=== PATIENT | female | born 1935 | race Caucasian/White ===

== ENCOUNTER 2017-05-25 11:10 | Day surgery (SDC) | payer OTHER ==
[~2017-05-25 11:10] MED LIST: BALANCED SALT IRRIG PLAIN 500 ML BTL IRR ONE; DUOVISC 1 KIT OPTH ONE; EPINEPHRINE/PF 1 MG/ML AMP ONE; MOXIFLOXACIN HCL 10 DROPS/ML **OR USE OPTH ONE; NS 0.9% VIAL 10 ML ONE
--- OUTSIDE RECORDS SUMMARY | 2017-05-25 11:38 | XMS REPORT | Clinical Summary ---
:1935 Author Organization [facility] Address [address] [place] [address] Phone Care Team Providers Name Role Phone Unavailable Primary Care Provider Unavailable Allergies No Known Allergies Current Medications Prescription Sig. Disp. Refills Start Date End Date Status colchicine Take 1.2 mg by Active (COLCRYS) 0.6 mg mouth daily. tablet docusate sodium Take 100 mg by Active (COLACE) 100 MG mouth 2 (two) capsule times daily. metoprolol Take 50 mg by Active (LOPRESSOR) 50 MG mouth 2 (two) tablet times daily. levothyroxine Take 100 mcg Active (SYNTHROID, by mouth Every LEVOTHROID) 100 MCG morning on an tablet empty stomach. famotidine (PEPCID) Take 1 tablet 60 tablet 3 05/09/2016 Active 20 MG tablet (20 mg total) by mouth 2 (two) times daily. traMADol (ULTRAM) Take 2 tablets 30 tablet 0 05/09/2016 Active 50 mg tablet (100 mg total) by mouth every 6 (six) hours as needed for Pain. Max Daily Amount: 400 mg amLODIPine Take 1 tablet 30 tablet 11 08/18/2016 08/18/2017 Active (NORVASC) 5 MG (5 mg total) tablet by mouth daily. folic acid Take 1 tablet 30 tablet 11 08/18/2016 08/18/2017 Active (FOLVITE) 1 MG (1 mg total) tablet by mouth daily. thiamine 100 MG Take 1 tablet 30 tablet 11 08/18/2016 08/18/2017 Active tablet (100 mg total) by mouth daily. aspirin 81 MG EC Take 81 mg by 08/15/2016 Discontinued tablet mouth daily. lidocaine Place 3 30 patch 0 08/18/2016 09/17/2016 (LIDODERM) 5 % patches onto patch the skin daily for 30 days Remove & Discard patch within 12 hours or as directed by . methocarbamol Take 1 tablet 30 tablet 0 08/18/2016 08/28/2016 (ROBAXIN) 500 MG (500 mg total) tablet by mouth 4 (four) times daily as needed for up to 10 days. Active Problems Problem Noted Date Vertebral compression fracture (HCC) 08/07/2016 Spinal cord compression (HCC) 08/07/2016 Gout 08/07/2016 Thrombocytopenia (HCC) 08/07/2016 Physical deconditioning 05/05/2016 Acquired hypothyroidism 05/05/2016 Essential hypertension 05/05/2016 Compression fracture 05/03/2016 Encounters Date Type Specialty Care Team Description 08/11/2016 Procedure Pass 08/11/2016 Surgery Renae, LAMINECTOMY,LUMBAR MD Chase W/INTERNAL FIXATION 08/08/2016 Anesthesia Event Evert Dennis MD 08/07/2016 - Hospital Encounter General Internal Gustavo, Spinal cord 08/19/2016 Medicine shady Ervin ([facility]) (Primary Laureano, Umar, Dx);Vertebral compression Gadicherla, fracture, with Julita delayed healing, MD Chip subsequent encounter;Acquired hypothyroidism;Essen tial hypertension;Physica l deconditioning;Throm bocytopenia (HCC);Gout, unspecified cause, unspecified chronicity, unspecified site;Macrocytosis;Le ukopenia, unspecified type;Cirrhosis of liver without ascites, unspecified hepatic cirrhosis type (HCC);Portal hypertension (HCC) 08/07/2016 Orders Only General Internal Medicine after 05/24/2016 Social History Tobacco Use Types Packs/Day Years Used Date Never Smoker Alcohol Use Drinks/Week oz/Week Comments Yes 5 Glasses of wine 3.0 Sex Assigned at Date Recorded Not on file Last Filed Vital Signs Vital Sign Reading Time Taken Blood Pressure 124/60 08/19/2016 7:19 AM CDT Pulse 62 08/19/2016 7:19 AM CDT Temperature 35.8 C (96.5 F) 08/19/2016 7:19 AM CDT Respiratory Rate 17 08/19/2016 7:19 AM CDT Oxygen Saturation 92% 08/19/2016 7:19 AM CDT Inhaled Oxygen Concentration - - Weight 80.5 kg (177 lb 8 oz) 08/07/2016 2:00 AM CDT Height 165.1 cm (5' 5") 08/07/2016 2:00 AM CDT Body Mass Index 29.54 08/07/2016 2:00 AM CDT Plan of Treatment Not on file Implants Implanted Type Area Clinical Pharmacy Coordinator Device Expiration Model / Serial / Identifier Date Lot Bone Chip Canc 1.7-10mm 30ml [id number] - [id number] Bone N/A: MUSCULOSKELETAL 03/27/2019 [id number] / Implanted: Qty: 1 on 08/11/2016 by Chase Renae MD Spine TRANSPLANT FND [id number] / Lumbar Tiss Live Puty Dbm Optium 10cc Tput10 - [id number] Bone N/A: LIFENET:LIFENET 01/28/2019 [id number] / Implanted: Qty: 1 on 08/11/2016 by Chase Renae MD Spine TRANSPLANT SRV / Lumbar [id number] Tiss Live Puty Dbm Optium 10cc Tput10 - [id number] Bone N/A: LIFENET:LIFENET 04/04/2019 TPUT10 / Implanted: Qty: 1 on 08/11/2016 by Chase Renae MD Spine TRANSPLANT SRV / Lumbar [id number] Matrix Floseal Hemo W/O Ndl 10 [id number] - [id number] Cement/F N/A: VINES: BIOSCI 12/23/2017 [id number] / Implanted: Qty: 1 on 08/11/2016 by Chase Renae MD illeashly/Jose Spine / hesive Lumbar [id number] Cement Ktmx Kyphx Hv-R C01b - [id number] Cement/F N/A: MEDTRONIC:SPINAL C01B / Implanted: Qty: 1 on 08/11/2016 by Chase Renae MD iller/Jose Spine BIOLOGICS / hesive Lumbar [id number] Cement Bone Kyphx Hv-R C01a - [id number] Cement/F N/A: MEDTRONIC:SPINAL C01A / Implanted: Qty: 1 on 08/11/2016 by Chase Renae MD iller/Ad Spine BIOLOGICS / hesive Lumbar [id number] Elia Harper Iii [id number] - [id number] Spine N/A: LUDIN:LUDIN [id number] / Implanted: Qty: 8 on 08/11/2016 by Chase Renae MD Spine SPINE / Lumbar Scr Polyaxial 5.5x45mm [id number] - [id number] Spine N/A: LUDIN:LUDIN [id number] / Implanted: Qty: 8 on 08/11/2016 by Chase Renae MD Spine SPINE / Lumbar [id number] Artem Harper 3 Titanium 480 [id number] - [id number] Spine N/A: LUDIN:LUDIN [id number] / Implanted: Qty: 2 on 08/11/2016 by Chase Renae MD Spine SPINE / Lumbar JBL Procedures Procedure Name Priority Date/Time Associated Diagnosis Comments PROCEDURE W/ STEALTH 08/11/2016 8:30 AM CDT Burst fracture of lumbar vertebra, closed, initial encounter (HCC) Special Needs (O-ARM WITH STEALTH NAVIGATION, VERONICA TABLE, PRONE POSITION) PROCEDURE W/ C-ARM 08/11/2016 8:30 AM CDT Burst fracture of lumbar vertebra, closed, initial encounter (HCC) Special Needs (O-ARM WITH STEALTH NAVIGATION, VERONICA TABLE, PRONE POSITION) LAMINECTOMY,LUMBAR W/INTERNAL 08/11/2016 8:30 AM CDT Burst fracture of lumbar FIXATION vertebra, closed, initial encounter (HCC) Special Needs (O-ARM WITH STEALTH NAVIGATION, VERONICA TABLE, PRONE POSITION) after 05/24/2016 Results RHYTHM STRIP - SCAN (08/20/2016 2:21 PM)Urine culture (08/16/2016 4:28 PM) Only the most recent of2 resultswithin the time period is included. Component Value Ref Range Result >100,000 col/mL Enterococcus species (A) Specimen Performing Laboratory Urine - Urine, Voided [facility] [address] [address] Organism Antibiotic Method Susceptibility Enterococcus species Ampicillin >=32: Resistant Enterococcus species Linezolid 2: Susceptible Enterococcus species Nitrofurantoin 64: Resistant Enterococcus species Tetracycline <=1: Susceptible Enterococcus species Vancomycin <=0.5: Susceptible Urinalysis w/Microscopic (08/16/2016 4:27 PM)Only the most recent of2 resultswithin the time period is included. Component Value Ref Range Color, UA Dark Yellow Clarity, UA Hazy Specific [place], UA 1.026 1.001 - 1.035 pH, UA 6.0 5.0 - 8.0 Protein, UA 30 mg/dL (A) Negative Glucose, UA Negative Negative Ketones, UA 10 mg/dL (A) Negative Bilirubin, UA Negative Negative Blood, UA Negative Negative Nitrite, UA Negative Negative Leukocytes, UA Large (A) Negative Urobilinogen, UA 2.0 (H) 0.2 - 1.0 mg/dL RBC, UA 2 /HPF WBC, UA 36 /HPF Mucus Occasional Squam Epithel, UA 12 /HPF Specimen Source Urine, Voided Specimen Performing Laboratory Urine - Urine, Voided [address] [address] Blood culture (08/16/2016 8:03 AM)Only the most recent of2 resultswithin the time period is included. Component Value Ref Range Result No growth in 5 days Specimen Performing Laboratory Blood - Arm, Right [address] [address] XR spine lumbar 2 or 3 views (08/15/2016 1:54 PM) Specimen Performing Laboratory GE RIS Narrative FINAL REPORT Two views lumbar spine Discussion: There are pedicle screws T11, T12, L2, and L3 associated with bone cement at these levels. Intact dorsal rods are noted with grossly normal thoracolumbar alignment. A severe depression deformity is present at L1 unchanged from the previous study. Signed: Elicia Dasilva MD Report Verified Date/Time:08/15/2016 14:11:16 Reading Location: [address] Consult Reading Room Procedure Note Interface, External Ris In - 08/15/2016 2:13 PM CDT FINAL REPORT Two views lumbar spine Discussion: There are pedicle screws T11, T12, L2, and L3 associated with bone cement at these levels. Intact dorsal rods are noted with grossly normal thoracolumbar alignment. A severe depression deformity is present at L1 unchanged from the previous study. Signed: Elicia Dasilva MD Report Verified Date/Time: 08/15/2016 14:11:16 Reading Location: [facility] [id number] Consult Reading Room with platelet count + automated diff (08/15/2016 3:39 AM)Only the most recent of10 resultswithin the time period is included. Component Value Ref Range WBC 7.0 4.0 - 10.0 K/L RBC 2.59 (L) 4.00 - 5.00 M/L Hemoglobin 9.6 (L) 12.0 - 15.0 GM/DL Hematocrit 27.4 (L) 36.0 - 45.0 % MCV 106.0 (H) 82.0 - 99.0 fL MCH 37.1 (H) 27.0 - 33.0 pg MCHC 35.1 32.0 - 36.0 GM/DL RDW 12.9 10.3 - 14.2 % Platelets 108 (L) 150 - 430 K/CU MM MPV 8.5 6.5 - 10.5 fL nRBC 0 0 - 0 /100 WBC % Neutros 62 % % Lymphs 25 % % Monos 10 % % Eos 4 % % Baso 0 % # Neutros 4.32 1.80 - 8.00 K/L # Lymphs 1.75 1.48 - 4.50 K/L # Monos 0.69 0.00 - 1.30 K/L # Eos 0.26 0.00 - 0.50 K/L # Baso 0.02 0.00 - 0.20 K/L Specimen Performing Laboratory Blood - Arm, [place] [address] Narrative 0.00 CBC with platelet count + automated diff (08/15/2016 3:39 AM)Only the most recent of10 resultswithin the time period is included. Specimen Performing Laboratory Blood Narrative The following orders were created for panel order CBC with platelet count + automated diff. Procedure Abnormality Status --------- ------ CBC with platelet count ...[[id number]]AbnormalFinal result Please view results for these tests on the individual orders. Hepatic function panel (08/15/2016 3:39 AM)Only the most recent of4 resultswithin the time period is included. Component Value Ref Range Protein, Total 5.5 (L) 6.0 - 8.3 gm/dL Albumin 2.5 (L) 3.5 - 5.0 g/dL Total Bilirubin 0.6 0.2 - 1.2 mg/dL Bilirubin, Direct 0.3 0.1 - 0.5 mg/dL Alkaline Phosphatase 141 40 - 150 U/L AST 24 5 - 34 U/L ALT 13 6 - 55 U/L Specimen Performing Laboratory Blood - Arm, [address] [address] Basic Metabolic Panel (08/15/2016 3:39 AM)Only the most recent of10 resultswithin the time period is included. Component Value Ref Range Sodium 133 (L) 136 - 145 meq/L Potassium 3.4 (L) 3.5 - 5.1 meq/L Chloride 105 98 - 107 meq/L CO2 21 (L) 22 - 29 meq/L BUN 9 7 - 21 mg/dL Creatinine 0.49 (L) 0.57 - 1.25 mg/dL Glucose 82 70 - 105 mg/dL Calcium 8.0 (L) 8.4 - 10.2 mg/dL EGFR 122Comment: ESTIMATED GFR IS NOT ACCURATE mL/min/1.73 sq m CREATININE CLEARANCE IN PREDICTING GLOMERULAR FILTRATION RATE. ESTIMATED GFR IS NOT APPLICABLE FOR DIALYSIS PATIENTS. Specimen Performing Laboratory Blood - Arm, [address] [address] Alpha fetoprotein (AFP), tumor marker (08/13/2016 4:16 AM) Component Value Ref Range Alpha-Fetoprotein 4.7 <10.0 ng/mL Specimen Performing Laboratory Blood - Arm, [address] [address] Narrative Effective 01/10/2014: Reference Range Change New: <10.0 Previous: 0.0-8.0 Prepare Leuko-Red PLT (08/12/2016 11:54 PM)Only the most recent of2 resultswithin the time period is included. Component Value Ref Range Unit ABO O Pos UNIT NUMBER [id number] Status TRANSFUSED Blood Bank Product PLATELETS PRODUCT CODE [id number] Specimen Performing Laboratory Blood [place] Vitamin D, 25-Hydroxy (08/12/2016 3:54 AM) Component Value Ref Range Vitamin D 25-Hydroxy 36.0 13.0 - 47.8 ng/mL Specimen Performing Laboratory Blood - Arm, Right [facility] [address] [address] [place] manager of radiology in or 30 minute increments (08/11/2016 12:30 PM) Specimen Performing Laboratory GE RIS Narrative FINAL REPORT Examination: Intraoperative evaluation 390 images were obtained during the procedure by the ordering service. Images are nondiagnostic as no radiologist was present at the time of imaging. Fluoroscopic time was 2.2 seconds. Please see the procedure report for details. Signed: Fausto Alvarez MD Report Verified Date/Time:08/11/2016 22:00:36 Reading Location: [address] Reading Room Procedure Note Interface, External Ris In - 08/11/2016 10:02 PM CDT FINAL REPORT Examination: Intraoperative evaluation 390 images were obtained during the procedure by the ordering service. Images are nondiagnostic as no radiologist was present at the time of imaging. Fluoroscopic time was 2.2 seconds. Please see the procedure report for details. Signed: Fausto Alvarez MD Report Verified Date/Time: 08/11/2016 22:00:36 Reading Location: [address] Reading Room CRITICAL LABS (ABG,NA,K,H&H,GLUCOSE) (08/11/2016 10:18 AM) Specimen Performing Laboratory Blood, Arterial Narrative The following orders were created for panel order [facility] CRITICAL LABS (ABG,NA,K,H&H,GLUCOSE). Procedure Abnormality Status --------- ------ Blood gas, arterial[[id number]]AbnormalFinal result Sodium Na-Stat Lab[[id number]] NormalFinal result Potassium-Stat Lab[[id number]] AbnormalFinal result Glucose-Stat Lab[[id number]] NormalFinal result HGB/HCT (H&H)-Stat Lab[[id number]] AbnormalFinal result Please view results for these tests on the individual orders. Potassium-Stat Lab (08/11/2016 10:18 AM) Component Value Ref Range Potassium 3.1 (L) 3.6 - 5.5 meq/L Specimen Performing Laboratory Blood, [address] [address] Sodium Na-Stat Lab (08/11/2016 10:18 AM) Component Value Ref Range Sodium 136 135 - 148 meq/L Specimen Performing Laboratory Blood, [address] [address] Glucose-Stat Lab (08/11/2016 10:18 AM) Component Value Ref Range Glucose 106 70 - 110 mg/dL Specimen Performing Laboratory Blood, [address] [address] HGB/HCT (H&H)-Stat Lab (08/11/2016 10:18 AM) Component Value Ref Range Hemoglobin 11.6 (L) 12.0 - 15.0 g/dL Hematocrit 34.0 (L) 36.0 - 45.0 % Specimen Performing Laboratory Blood, [address] [address] Blood gas, arterial (08/11/2016 10:18 AM) Component Value Ref Range pH, Arterial 7.41 7.35 - 7.45 pCO2, Arterial 38 35 - 45 mmHg pO2, Arterial 243 (H) 80 - 90 mmHg O2 Sat, Arterial 99.6 (H) 96.0 - 97.0 % HCO3, Arterial 24 21 - 29 mmol/L Base Excess, Arterial -0.7 -2.0 - 3.0 mmol/L Patient Temperature 37.0 C FIO2 100.0 % Specimen Performing Laboratory Blood, [address] [address] Calcium, Ionized (08/11/2016 10:18 AM) Component Value Ref Range Calcium, Ion 1.06 (L) 1.12 - 1.27 mmol/L pH, Blood 7.41 Specimen Performing Laboratory Blood [facility] [address] [address] XR spine lumbar 1 view (08/11/2016 9:27 AM)Only the most recent of2 resultswithin the time period is included. Specimen Performing Laboratory GE RIS Narrative FINAL REPORT Single lateral lumbar spine Discussion: Clamps project along the posterior elements, parallel with the upper margins of the T11 and T12 vertebral bodies. Report was called to Dr. Renae in the operating room who was in agreement. Signed: Elicia Dasilva MD Report Verified Date/Time:08/11/2016 09:53:51 Reading Location: [facility] Radiology Reading Room Procedure Note Interface, External Ris In - 08/11/2016 9:56 AM CDT FINAL REPORT Single lateral lumbar spine Discussion: Clamps project along the posterior elements, parallel with the upper margins of the T11 and T12 vertebral bodies. Report was called to Dr. Renae in the operating room who was in agreement. Signed: Elicia Dasilva MD Report Verified Date/Time: 08/11/2016 09:53:51 Reading Location: [facility] Radiology Reading Room Manual Differential (08/11/2016 4:12 AM)Only the most recent of4 resultswithin the time period is included. Component Value Ref Range Total Counted WBC Morphology Normal Platelet Morphology Normal RBC Morphology Normal Specimen Performing Laboratory Blood - Arm, Right [address] [address] Transfuse Leuko-Red PLT (08/11/2016 3:11 AM)Type and screen, automated (2016 3:59 PM)Only the most recent of2 resultswithin the time period is included. Component Value Ref Range ABO/RH AUTOMATED (BEAKER) O NEGATIVE Ab Scrn NEGATIVE Specimen Performing Laboratory Blood - Arm, Left [address] [address] Prothrombin time/INR (08/10/2016 12:42 PM)Only the most recent of2 resultswithin the time period is included. Component Value Ref Range Protime 14.1 11.7 - 14.7 seconds INR 1.1 <=5.9 Specimen Performing Laboratory Blood - Arm, Left [address] [address] Narrative RECOMMENDED COUMADIN/WARFARIN INR THERAPY RANGES STANDARD DOSE: 2.0 - 3.0 Includes: PROPHYLAXIS for venous thrombosis, systemic embolization; TREATMENT for venous thrombosis and/or pulmonary embolus. HIGH RISK: Target INR is 2.5-3.5 for patients with mechanical heart valves. Platelet count (08/10/2016 12:42 PM) Component Value Ref Range Platelets 62 (L) 150 - 430 K/CU MM Specimen Performing Laboratory Blood - Arm, Left [address] [address] Narrative Performed on a blue top tube Haptoglobin (08/10/2016 12:42 PM) Component Value Ref Range Haptoglobin 119 14 - 258 mg/dL Specimen Performing Laboratory Blood - Arm, Left [address] [address] Narrative Effective 01/10/2014: Reference Range Change New: 14-258 Previous: 36-195 Peripheral Blood Smear - Hold only (08/10/2016 9:49 AM) Component Value Ref Range Peripheral Smear Save saved Specimen Performing Laboratory Blood - Antecubital, Right [address] [address] CBC (Hemogram only) (08/10/2016 9:49 AM)Only the most recent of2 resultswithin the time period is included. Component Value Ref Range WBC 3.3 (L) 4.0 - 10.0 K/L RBC 3.63 (L) 4.00 - 5.00 M/L Hemoglobin 13.0 12.0 - 15.0 GM/DL Hematocrit 38.9 36.0 - 45.0 % MCV 107.0 (H) 82.0 - 99.0 fL MCH 35.8 (H) 27.0 - 33.0 pg MCHC 33.5 32.0 - 36.0 GM/DL RDW 14.7 (H) 10.3 - 14.2 % Platelets 85 (L) 150 - 430 K/CU MM MPV 7.8 6.5 - 10.5 fL nRBC 0 0 - 0 /100 WBC Specimen Performing Laboratory Blood - Antecubital, [address] [address] Narrative 0.00 Hepatitis panel, acute (08/09/2016 5:53 PM) Component Value Ref Range Hep A IgM Nonreactive Nonreactive Hep B C IgM Nonreactive Nonreactive Hepatitis C Ab Nonreactive Nonreactive hepatitis B Surface Ag Nonreactive Nonreactive Specimen Performing [facility] [address] [address] Fibrinogen (08/09/2016 5:53 PM) Component Value Ref Range Fibrinogen 319 225 - 434 mg/dl Specimen Performing Laboratory [facility] [address] [address] Immunofixation electrophoresis (MARCO) (08/09/2016 4:05 AM) Component Value Ref Range IgG 1073 751 - 1560 mg/dL IgA 604 (H) 82 - 453 mg/dL IgM 152 46 - 304 mg/dL Serum MARCO Identification IgA-kappa, monoclonal; IgG-lambda monoclonal (Note: monoclonal proteins are small in concentration; majority of immunoglobulin present is polyclonal in nature.) Pathologist: Joseline Alvarado MD (electronic signature) Specimen Performing Laboratory Blood - Arm, [address] [address] Protein electrophoresis, serum (08/09/2016 4:05 AM) Component Value Ref Range Albumin Fraction 2.7 (L) 3.5 - 5.5 g/dL Alpha 1 Fraction 0.3 0.2 - 0.4 g/dL Alpha 2 Fraction 0.6 0.5 - 0.9 g/dL Beta Fraction 0.8 0.6 - 1.1 g/dL Gamma Globulin Fraction 1.3 0.7 - 1.7 g/dL Interpretation Decreased albumin and slight beta-gamma bridging, consistent with hepatic dysfunction. Small restrictions present in gamma region; serum MARCO ordered for further characterization. Pathologist: Joseline Alvarado MD (electronic signature) Protein, Total 5.6 (L) 6.0 - 8.3 gm/dL Specimen Performing Laboratory Blood - Arm, [address] [address] US abdomen complete (08/08/2016 5:36 PM) Specimen Performing Laboratory GE RIS Narrative FINAL REPORT Abdominal Ultrasound Clinical Diagnosis: Cirrhosis splenomegaly Comparison: No comparison Technique: Multiple transaxial and longitudinal images were obtained through the abdomen with real time ultrasonography.Five MHz transducer was utilized.82 images were submitted for interpretation. Report: Liver: The liver measures 14.8 cm in the right midaxillary line. There are no focal masses.The echogenicity is within normal limits. Spleen: The spleen measures 14.3 cm. in the left mid axillary line. Gallbladder: The gallbladder is surgically absent Biliary tree: There is no evidence of intra or extra hepatic biliary ductal dilatation. The common bile duct measures five mm. Portal vein: The portal vein measures 10 mm. Pancreas:The pancreatic tail is not well seen secondary to overlying bowel gas. Ascites: Negative Pleural Effusion: Negative Right kidney: The right kidney measures 8.5 cm. in length without evidence of hydronephrosis. Left kidney: Theleft kidney measures 9.0 cm. in length without evidence of hydronephrosis. IVC/Aorta: Partially seen segments demonstrate no abnormality. The maximum transaxial dimension of the aorta was 1.7 cm proximally Impression: Status post cholecystectomy. Splenomegaly. Mild nodularity visualized at the liver cortical margin consistent with the patient's clinical diagnosis of cirrhosis Small kidneys bilaterally. Signed: Mila Gunter MD Report Verified Date/Time:08/08/2016 17:49:34 Reading Location: [address] Ultrasound Reading Room Procedure Note Interface, External Ris In - 08/08/2016 5:51 PM CDT FINAL REPORT Abdominal Ultrasound Clinical Diagnosis: Cirrhosis splenomegaly Comparison: No comparison Technique: Multiple transaxial and longitudinal images were obtained through the abdomen with real time ultrasonography. Five MHz transducer was utilized. 82 images were submitted for interpretation. Report: Liver: The liver measures 14.8 cm in the right midaxillary line. There are no focal masses. The echogenicity is within normal limits. Spleen: The spleen measures 14.3 cm. in the left mid axillary line. Gallbladder: The gallbladder is surgically absent Biliary tree: There is no evidence of intra or extra hepatic biliary ductal dilatation. The common bile duct measures five mm. Portal vein: The portal vein measures 10 mm. Pancreas: The pancreatic tail is not well seen secondary to overlying bowel gas. Ascites: Negative Pleural Effusion: Negative Right kidney: The right kidney measures 8.5 cm. in length without evidence of hydronephrosis. Left kidney: The left kidney measures 9.0 cm. in length without evidence of hydronephrosis. IVC/Aorta: Partially seen segments demonstrate no abnormality. The maximum transaxial dimension of the aorta was 1.7 cm proximally Impression: Status post cholecystectomy. Splenomegaly. Mild nodularity visualized at the liver cortical margin consistent with the patient's clinical diagnosis of cirrhosis Small kidneys bilaterally. Signed: Mila Gunter MD Report Verified Date/Time: 08/08/2016 17:49:34 Reading Location: [address] Ultrasound Reading Room chest 1 view portable / bedside (08/08/2016 4:44 PM) Specimen Performing Laboratory GE RIS Narrative FINAL REPORT AP CHEST History provided: Preoperative assessment Comparison studies: None Degree of inspiration is less than optimal. Heart appears enlarged. Lungs grossly clear and vascularity normal. Deformed right clavicle secondary to old healed fracture. Left shoulder prosthesis. IMPRESSION: Cardiomegaly. No acute findings. Signed: Felisa Soto MD Report Verified Date/Time:08/08/2016 16:50:49 Reading Location: [facility] Radiology Reading Room Procedure Note Interface, External Ris In - 08/08/2016 4:59 PM CDT FINAL REPORT AP CHEST History provided: Preoperative assessment Comparison studies: None Degree of inspiration is less than optimal. Heart appears enlarged. Lungs grossly clear and vascularity normal. Deformed right clavicle secondary to old healed fracture. Left shoulder prosthesis. IMPRESSION: Cardiomegaly. No acute findings. Signed: Felisa Soto MD Report Verified Date/Time: 08/08/2016 16:50:49 Reading Location: [facility] Radiology Reading Room Reticulocyte count (08/08/2016 2:32 PM) Component Value Ref Range % Retic 3.8 (H) 0.4 - 2.9 % Specimen Performing Laboratory Blood [facility] [address] [place] [address] Lactate dehydrogenase (LDH) (08/08/2016 2:32 PM) Component Value Ref Range LDH 146 125 - 220 U/L Specimen Performing Laboratory Blood [address] [address] Vitamin B12 and Folate (08/08/2016 6:14 AM) Component Value Ref Range Vitamin B12 486 213 - 816 pg/mL Folate 17.2 >=7.0 ng/mL Specimen Performing Laboratory Blood - Arm, [address] [address] Narrative Effective 01/10/2014: Folate Reference Range Change New: >=7.0Previous: >=5.4 Comprehensive metabolic panel (08/08/2016 6:14 AM) Component Value Ref Range Protein, Total 6.9Comment: Specimen slightly hemolyzed 6.0 - 8.3 gm/dL Albumin 3.3 (L)Comment: Specimen slightly hemolyzed 3.5 - 5.0 g/dL Alkaline Phosphatase 150 40 - 150 U/L Total Bilirubin 1.0Comment: Specimen slightly hemolyzed 0.2 - 1.2 mg/dL Sodium 136 136 - 145 meq/L Potassium 3.8Comment: Specimen slightly hemolyzed 3.5 - 5.1 meq/L Chloride 101 98 - 107 meq/L CO2 28 22 - 29 meq/L BUN 8 7 - 21 mg/dL Creatinine 0.57Comment: Specimen slightly hemolyzed 0.57 - 1.25 mg/dL Glucose 87 70 - 105 mg/dL Calcium 9.2 8.4 - 10.2 mg/dL AST 43 (H)Comment: Specimen slightly hemolyzed 5 - 34 U/L ALT 17Comment: Specimen slightly hemolyzed 6 - 55 U/L EGFR 102Comment: ESTIMATED GFR IS NOT ACCURATE mL/min/1.73 sq m CREATININE CLEARANCE IN PREDICTING GLOMERULAR FILTRATION RATE. ESTIMATED GFR IS NOT APPLICABLE FOR DIALYSIS PATIENTS. Specimen Performing Laboratory Blood - Arm, [address] [address] MR spine lumbar without IV contrast (08/07/2016 4:10 PM) Specimen Performing Laboratory GE RIS Narrative FINAL REPORT MRI of the lumbar spine Comparison:Lumbar CT May 03 Reason for exam: L1 compression fracture Discussion: Sagittal and axial multisequence MR imaging of the lumbar spine was provided Chronic appearing compression deformity at T12 is similar in appearance to that of the previous CT. A compression deformity at L1 has become worse, now severe in degree with minimal retropulsion. There is moderate central canal stenosis at the upper L1 endplate level. Loss of the L1 vertebral body height is approximately 80% ventrally and 40% dorsally. There is bone marrow edema at the L1 level. MR imaging reveals a new compression deformity involving the upper endplate at L2 with bone marrow edema. No retropulsion. A dorsal disc bulge at this level is noted contributing to mild central canal stenosis. Chronic disc changes and facet arthrosis are seen at multiple levels throughout the lumbar region. The distal cord and conus are otherwise unremarkable with the conus tip at the L1 level. I do not see convincing foraminal nerve or compromise. There is substantial paraspinal muscular atrophy. Impressions: 1. T12 compression deformity is chronic. 2. L1 compression deformity has become worse with persistent marrow edema. Moderate central canal stenosis at this level. 3. New upper L2 endplate compression deformity minimal in degree. 4. Compression deformities are presumably osteoporotic pathologic in nature, but traumatic compression deformities could have this appearance. Signed: Elicia Dasilva MD Report Verified Date/Time:08/07/2016 16:54:05 Reading Location: [address] Neuro Reading Room Procedure Note Interface, External Ris In - 08/07/2016 4:56 PM CDT FINAL REPORT MRI of the lumbar spine Comparison: Lumbar CT May 03 Reason for exam: L1 compression fracture Discussion: Sagittal and axial multisequence MR imaging of the lumbar spine was provided Chronic appearing compression deformity at T12 is similar in appearance to that of the previous CT. A compression deformity at L1 has become worse, now severe in degree with minimal retropulsion. There is moderate central canal stenosis at the upper L1 endplate level. Loss of the L1 vertebral body height is approximately 80% ventrally and 40% dorsally. There is bone marrow edema at the L1 level. MR imaging reveals a new compression deformity involving the upper endplate at L2 with bone marrow edema. No retropulsion. A dorsal disc bulge at this level is noted contributing to mild central canal stenosis. Chronic disc changes and facet arthrosis are seen at multiple levels throughout the lumbar region. The distal cord and conus are otherwise unremarkable with the conus tip at the L1 level. I do not see convincing foraminal nerve or compromise. There is substantial paraspinal muscular atrophy. Impressions: 1. T12 compression deformity is chronic. 2. L1 compression deformity has become worse with persistent marrow edema. Moderate central canal stenosis at this level. 3. New upper L2 endplate compression deformity minimal in degree. 4. Compression deformities are presumably osteoporotic pathologic in nature, but traumatic compression deformities could have this appearance. Signed: Elicai Dasilva MD Report Verified Date/Time: 08/07/2016 16:54:05 Reading Location: [address] Neuro Reading Room aPTT (08/07/2016 7:32 AM) Component Value Ref Range PTT 33.1 22.5 - 36.0 seconds Specimen Performing Laboratory Blood [address] [address] Peripheral Blood Smear - Path Review (08/07/2016 7:02 AM) Component Value Ref Range Pathologist Review Comment: Thrombocytopenia. Occasional large forms. No clumping or satellitosis. Pathologist: Ele Carmen M.D. (electronic signature) Specimen Performing Laboratory [address] [address] TSH/Free T4 If Indicated (08/07/2016 7:01 AM) Component Value Ref Range TSH 0.38 0.35 - 4.94 uIU/mL Specimen Performing Laboratory [address] [address] ECG 12 lead (08/07/2016 6:40 AM) Specimen Performing Laboratory GE MUSE Narrative Ventricular Rate 71 BPM Atrial Rate 71 BPM P-R Interval 172 ms QRS Duration 100 ms Q-T Interval 408 ms QTC Calculation(Bazett) 443 ms P [place] 50 degrees R [place] 9 degrees T [place] 32 degrees Normal sinus rhythm Normal ECG No previous ECGs available Confirmed by KELSI, MDIONISIO Rodriguez ([id number]) on 08/07/2016 10:25:39 AM Procedure Note Interface, External Ris In - 08/07/2016 10:25 AM CDT Ventricular Rate 71 BPM Atrial Rate 71 BPM P-R Interval 172 ms QRS Duration 100 ms Q-T Interval 408 ms QTC Calculation(Bazett) 443 ms P [place] 50 degrees R [place] 9 degrees T [place] 32 degrees Normal sinus rhythm Normal ECG No previous ECGs available Confirmed by Ama DOLAN BASANT ([id number]) on 08/07/2016 10:25:39 AM after 05/24/2016
--- OUTSIDE RECORDS SUMMARY | 2017-05-25 11:40 | XMS REPORT ---
:1935 [facility] Address [address] [place] [address] Dr. Constantino [address] [place] [id number] Care Team Providers Name Role Phone SUKHDEEP CRAWFORD Unavailable Unavailable Ang SANDS Unavailable Unavailable Problems This patient has no known problems. Allergies, Adverse Reactions, Alerts This patient has no known allergies or adverse reactions. Medications This patient has no known medications. Results Test Description Test Time Test Comments Text Results Atomic Results Result Comments BLOOD CULTURE 2016-08-21 11:00:00 Test Item Value Reference Range Comments CULTURE (BEAKER) (test vfvi=4081) No growth in 5 days BLOOD [id number] 11:00:00 Test Item Value Reference Range Comments CULTURE (BEAKER) (test auvh=6829) No growth in 5 days URINE [id number] 09:13:00 Test Item Value Reference Range Comments CULTURE (BEAKER) (test ENTEROCOCCUS SPECIES >100,000 col/mL uodv=4811) Enterococcus species Ampicillin (test code=26) Ciprofloxacin (test code=7) Clindamycin (test code=10) Daptomycin (test code=59) Erythromycin (test code=4) Gentamicin (test code=18) Gentamicin High Level Synergy (test oqqb=585) Levofloxacin (test code=22) Linezolid (test code=40) Moxifloxacin (test code=36) Nitrofurantoin (test code=23) Oxacillin (test code=14) Rifampin (test code=43) Streptomycin High Level Synergy (test wbdw=344) Tetracycline (test code=2) Tigecycline (test vswe=032) Trimethoprim + Sulfamethoxazole (test code=47) Vancomycin (test code=13) URINALYSIS W/ [id number] 17:26:00 Test Item Value Reference Range Comments COLOR (BEAKER) (test dplo=291) Dark Yellow CLARITY (BEAKER) (test ftbv=953) Hazy SPECIFIC GRAVITY UA (BEAKER) (test xzny=884) 1.026 1.001-1.035 PH UA (BEAKER) (test usyg=349) 6.0 5.0-8.0 PROTEIN UA (BEAKER) (test utao=303) 30 mg/dL Negative GLUCOSE UA (BEAKER) (test gvdb=101) Negative Negative KETONES UA (BEAKER) (test occw=891) 10 mg/dL Negative BILIRUBIN UA (BEAKER) (test czns=741) Negative Negative BLOOD UA (BEAKER) (test wmux=888) Negative Negative NITRITE UA (BEAKER) (test bcob=093) Negative Negative LEUKOCYTE ESTERASE UA (BEAKER) (test glti=880) Large Negative UROBILINOGEN UA (BEAKER) (test tifz=137) 2.0 mg/dL 0.2-1.0 RBC UA (BEAKER) (test cwec=271) 2 /HPF WBC UA (BEAKER) (test ykim=599) 36 /HPF MUCUS (BEAKER) (test vvtr=5988) Occasional SQUAMOUS EPITHELIAL (BEAKER) (test tyxp=425) 12 /HPF SOURCE(BEAKER) (test qtma=1813) Urine, Voided HEPATIC FUNCTION [id number] 05:45:00 Test Item Value Reference Range Comments TOTAL PROTEIN (BEAKER) (test lmtn=337) 5.5 gm/dL 6.0-8.3 ALBUMIN (BEAKER) (test hotm=4572) 2.5 g/dL 3.5-5.0 BILIRUBIN TOTAL (BEAKER) (test tamd=286) 0.6 mg/dL 0.2-1.2 BILIRUBIN DIRECT (BEAKER) (test mbde=138) 0.3 mg/dL 0.1-0.5 ALKALINE PHOSPHATASE (BEAKER) (test umzt=499) 141 U/L 40-150 AST (SGOT) (BEAKER) (test orbr=197) 24 U/L 5-34 ALT (SGPT) (BEAKER) (test okdm=460) 13 U/L 6-55 BASIC METABOLIC [id number] 05:45:00 Test Item Value Reference Range Comments SODIUM (BEAKER) (test 133 meq/L 136-145 zmtx=873) POTASSIUM (BEAKER) (test 3.4 meq/L 3.5-5.1 kkqw=442) CHLORIDE (BEAKER) (test 105 meq/L 98-107 oqyg=522) CO2 (BEAKER) (test 21 meq/L 22-29 gjlv=030) BLOOD UREA NITROGEN 9 mg/dL 7-21 (BEAKER) (test mfwn=341) CREATININE (BEAKER) (test 0.49 mg/dL 0.57-1.25 qeyz=579) GLUCOSE RANDOM (BEAKER) 82 mg/dL 70-105 (test hans=419) CALCIUM (BEAKER) (test 8.0 mg/dL 8.4-10.2 jaic=830) EGFR (BEAKER) (test 122 mL/min/1.73 sq m ESTIMATED GFR IS NOT nfna=5466) ACCURATE CREATININE CLEARANCE IN PREDICTING GLOMERULAR FILTRATION RATE. ESTIMATED GFR IS NOT APPLICABLE FOR DIALYSIS PATIENTS. CBC W/PLT COUNT & AUTO [id number] 05:22:00 Test Item Value Reference Range Comments WHITE BLOOD CELL COUNT (BEAKER) (test ufmn=851) 7.0 K/ L 4.0-10.0 RED BLOOD CELL COUNT (BEAKER) (test cvfb=111) 2.59 M/ L 4.00-5.00 HEMOGLOBIN (BEAKER) (test cngr=761) 9.6 GM/DL 12.0-15.0 HEMATOCRIT (BEAKER) (test ekxh=040) 27.4 % 36.0-45.0 MEAN CORPUSCULAR VOLUME (BEAKER) (test nmih=953) 106.0 fL 82.0-99.0 MEAN CORPUSCULAR HEMOGLOBIN (BEAKER) (test 37.1 pg 27.0-33.0 jswz=763) MEAN CORPUSCULAR HEMOGLOBIN CONC (BEAKER) (test 35.1 GM/DL 32.0-36.0 fpmw=068) RED CELL DISTRIBUTION WIDTH (BEAKER) (test 12.9 % 10.3-14.2 ntyw=775) PLATELET COUNT (BEAKER) (test sxbp=517) 108 K/CU MM 150-430 MEAN PLATELET VOLUME (BEAKER) (test lfoq=473) 8.5 fL 6.5-10.5 NUCLEATED RED BLOOD CELLS (BEAKER) (test 0 /100 WBC 0-0 xbhh=828) NEUTROPHILS RELATIVE PERCENT (BEAKER) (test 62 % ktjg=749) LYMPHOCYTES RELATIVE PERCENT (BEAKER) (test 25 % urdl=822) MONOCYTES RELATIVE PERCENT (BEAKER) (test 10 % aqsk=324) EOSINOPHILS RELATIVE PERCENT (BEAKER) (test 4 % gohy=105) BASOPHILS RELATIVE PERCENT (BEAKER) (test 0 % ikjn=755) NEUTROPHILS ABSOLUTE COUNT (BEAKER) (test 4.32 K/ L 1.80-8.00 afvk=461) LYMPHOCYTES ABSOLUTE COUNT (BEAKER) (test 1.75 K/ L 1.48-4.50 dylr=102) MONOCYTES ABSOLUTE COUNT (BEAKER) (test 0.69 K/ L 0.00-1.30 yagm=523) EOSINOPHILS ABSOLUTE COUNT (BEAKER) (test 0.26 K/ L 0.00-0.50 xtap=491) BASOPHILS ABSOLUTE COUNT (BEAKER) (test 0.02 K/ L 0.00-0.20 njdw=440) 0.00HEPATIC FUNCTION [id number] 13:28:00 Test Item Value Reference Range Comments TOTAL PROTEIN (BEAKER) (test cnyz=465) 5.9 gm/dL 6.0-8.3 ALBUMIN (BEAKER) (test ebmi=8376) 2.8 g/dL 3.5-5.0 BILIRUBIN TOTAL (BEAKER) (test urzr=783) 0.6 mg/dL 0.2-1.2 BILIRUBIN DIRECT (BEAKER) (test qvxn=665) 0.3 mg/dL 0.1-0.5 ALKALINE PHOSPHATASE (BEAKER) (test uens=777) 160 U/L 40-150 AST (SGOT) (BEAKER) (test cwkz=990) 29 U/L 5-34 ALT (SGPT) (BEAKER) (test sqdd=671) 13 U/L 6-55 BASIC METABOLIC [id number] 13:28:00 Test Item Value Reference Range Comments SODIUM (BEAKER) (test 136 meq/L 136-145 eaed=171) POTASSIUM (BEAKER) (test 3.3 meq/L 3.5-5.1 tsge=013) CHLORIDE (BEAKER) (test 105 meq/L 98-107 bdjt=109) CO2 (BEAKER) (test 24 meq/L 22-29 pehm=767) BLOOD UREA NITROGEN 8 mg/dL 7-21 (BEAKER) (test aklt=984) CREATININE (BEAKER) (test 0.47 mg/dL 0.57-1.25 oznr=892) GLUCOSE RANDOM (BEAKER) 86 mg/dL 70-105 (test ydpd=621) CALCIUM (BEAKER) (test 8.6 mg/dL 8.4-10.2 tzze=028) EGFR (BEAKER) (test 128 mL/min/1.73 sq m ESTIMATED GFR IS NOT ouje=5949) ACCURATE CREATININE CLEARANCE IN PREDICTING GLOMERULAR FILTRATION RATE. ESTIMATED GFR IS NOT APPLICABLE FOR DIALYSIS PATIENTS. CBC W/PLT COUNT & AUTO [id number] 06:36:00 Test Item Value Reference Range Comments WHITE BLOOD CELL COUNT (BEAKER) (test yuiy=707) 7.4 K/ L 4.0-10.0 RED BLOOD CELL COUNT (BEAKER) (test zceq=938) 2.47 M/ L 4.00-5.00 HEMOGLOBIN (BEAKER) (test lhol=048) 10.4 GM/DL 12.0-15.0 HEMATOCRIT (BEAKER) (test wdyq=434) 26.3 % 36.0-45.0 MEAN CORPUSCULAR VOLUME (BEAKER) (test jnma=845) 107.0 fL 82.0-99.0 MEAN CORPUSCULAR HEMOGLOBIN (BEAKER) (test 42.0 pg 27.0-33.0 elxv=058) MEAN CORPUSCULAR HEMOGLOBIN CONC (BEAKER) (test 39.4 GM/DL 32.0-36.0 veze=875) RED CELL DISTRIBUTION WIDTH (BEAKER) (test 13.4 % 10.3-14.2 ntlc=164) PLATELET COUNT (BEAKER) (test fkmd=643) 102 K/CU MM 150-430 MEAN PLATELET VOLUME (BEAKER) (test wjgs=897) 8.6 fL 6.5-10.5 NUCLEATED RED BLOOD CELLS (BEAKER) (test 0 /100 WBC 0-0 hzdy=913) NEUTROPHILS RELATIVE PERCENT (BEAKER) (test 61 % ykpr=908) LYMPHOCYTES RELATIVE PERCENT (BEAKER) (test 24 % lzyn=749) MONOCYTES RELATIVE PERCENT (BEAKER) (test 13 % myvf=141) EOSINOPHILS RELATIVE PERCENT (BEAKER) (test 2 % zotg=083) BASOPHILS RELATIVE PERCENT (BEAKER) (test 0 % erlx=965) NEUTROPHILS ABSOLUTE COUNT (BEAKER) (test 4.50 K/ L 1.80-8.00 ojtn=817) LYMPHOCYTES ABSOLUTE COUNT (BEAKER) (test 1.80 K/ L 1.48-4.50 ufpl=798) MONOCYTES ABSOLUTE COUNT (BEAKER) (test 0.98 K/ L 0.00-1.30 oubo=200) EOSINOPHILS ABSOLUTE COUNT (BEAKER) (test 0.12 K/ L 0.00-0.50 gyds=385) BASOPHILS ABSOLUTE COUNT (BEAKER) (test 0.02 K/ L 0.00-0.20 rzac=378) 0.00URINE [id number] 10:37:00 Test Item Value Reference Range Comments CULTURE (BEAKER) (test ESCHERICHIA COLI 40-49,000 col/mL vxwl=3509) Escherichia coli Amikacin (test code=1) Ampicillin + Sulbactam (test code=6) Aztreonam (test code=32) Cefazolin (test code=9) Cefepime (test code=51) Cefoxitin (test code=68) Ceftazidime (test code=27) Ceftriaxone (test code=52) Ertapenem (test code=38) Gentamicin (test code=18) Levofloxacin (test code=22) Meropenem (test code=34) Nitrofurantoin (test code=23) Piperacillin + Tazobactam (test code=29) Tetracycline (test code=2) Tigecycline (test jvuu=623) Tobramycin (test code=25) Trimethoprim + Sulfamethoxazole (test code=47) ALPHA FETOPROTEIN (AFP), TUMOR [id number] 05:15:00 Test Item Value Reference Range Comments ALPHA-FETOPROTEIN (BEAKER) (test hwie=4250) 4.7 ng/mL <10.0 Effective 01/10/2014: Reference Range ChangeNew: <10.0 Previous: 0.0- 8.0CBC W/PLT COUNT & AUTO [id number] 05:11:00 Test Item Value Reference Range Comments WHITE BLOOD CELL COUNT (BEAKER) (test imss=498) 6.6 K/ L 4.0-10.0 RED BLOOD CELL COUNT (BEAKER) (test tlgu=600) 2.81 M/ L 4.00-5.00 HEMOGLOBIN (BEAKER) (test qtyz=439) 10.4 GM/DL 12.0-15.0 HEMATOCRIT (BEAKER) (test vstr=617) 30.0 % 36.0-45.0 MEAN CORPUSCULAR VOLUME (BEAKER) (test adzl=723) 107.0 fL 82.0-99.0 MEAN CORPUSCULAR HEMOGLOBIN (BEAKER) (test 36.9 pg 27.0-33.0 mgun=060) MEAN CORPUSCULAR HEMOGLOBIN CONC (BEAKER) (test 34.6 GM/DL 32.0-36.0 oefl=846) RED CELL DISTRIBUTION WIDTH (BEAKER) (test 14.7 % 10.3-14.2 bgll=886) PLATELET COUNT (BEAKER) (test vgll=365) 97 K/CU MM 150-430 MEAN PLATELET VOLUME (BEAKER) (test pnzw=116) 8.4 fL 6.5-10.5 NUCLEATED RED BLOOD CELLS (BEAKER) (test 0 /100 WBC 0-0 blvj=679) NEUTROPHILS RELATIVE PERCENT (BEAKER) (test 64 % nhyl=330) LYMPHOCYTES RELATIVE PERCENT (BEAKER) (test 21 % czpu=630) MONOCYTES RELATIVE PERCENT (BEAKER) (test 13 % yhwz=282) EOSINOPHILS RELATIVE PERCENT (BEAKER) (test 2 % cyqy=295) BASOPHILS RELATIVE PERCENT (BEAKER) (test 0 % qemt=761) NEUTROPHILS ABSOLUTE COUNT (BEAKER) (test 4.20 K/ L 1.80-8.00 pzeu=115) LYMPHOCYTES ABSOLUTE COUNT (BEAKER) (test 1.34 K/ L 1.48-4.50 uvfg=210) MONOCYTES ABSOLUTE COUNT (BEAKER) (test wwqq=227) 0.83 K/ L 0.00-1.30 EOSINOPHILS ABSOLUTE COUNT (BEAKER) (test 0.14 K/ L 0.00-0.50 ywmq=608) BASOPHILS ABSOLUTE COUNT (BEAKER) (test ansm=501) 0.03 K/ L 0.00-0.20 0.00HEPATIC FUNCTION [id number] 05:08:00 Test Item Value Reference Range Comments TOTAL PROTEIN (BEAKER) (test xatu=555) 5.6 gm/dL 6.0-8.3 ALBUMIN (BEAKER) (test ssox=8060) 2.8 g/dL 3.5-5.0 BILIRUBIN TOTAL (BEAKER) (test riyr=821) 0.8 mg/dL 0.2-1.2 BILIRUBIN DIRECT (BEAKER) (test bvht=625) 0.4 mg/dL 0.1-0.5 ALKALINE PHOSPHATASE (BEAKER) (test toth=837) 131 U/L 40-150 AST (SGOT) (BEAKER) (test ltjz=709) 29 U/L 5-34 ALT (SGPT) (BEAKER) (test zfqd=143) 10 U/L 6-55 BASIC METABOLIC [id number] 05:08:00 Test Item Value Reference Range Comments SODIUM (BEAKER) (test 136 meq/L 136-145 eqkw=890) POTASSIUM (BEAKER) (test 3.3 meq/L 3.5-5.1 uckz=628) CHLORIDE (BEAKER) (test 107 meq/L 98-107 utei=857) CO2 (BEAKER) (test 21 meq/L 22-29 ncqy=257) BLOOD UREA NITROGEN 7 mg/dL 7-21 (BEAKER) (test lvto=633) CREATININE (BEAKER) (test 0.52 mg/dL 0.57-1.25 oycg=047) GLUCOSE RANDOM (BEAKER) 89 mg/dL 70-105 (test mjrk=101) CALCIUM (BEAKER) (test 8.1 mg/dL 8.4-10.2 vtfz=036) EGFR (BEAKER) (test 113 mL/min/1.73 sq m ESTIMATED GFR IS NOT rkhg=0116) ACCURATE CREATININE CLEARANCE IN PREDICTING GLOMERULAR FILTRATION RATE. ESTIMATED GFR IS NOT APPLICABLE FOR DIALYSIS PATIENTS. CBC W/PLT COUNT & AUTO [id number] 07:18:00 Test Item Value Reference Range Comments WHITE BLOOD CELL COUNT (BEAKER) (test vjss=494) 4.7 K/ L 4.0-10.0 RED BLOOD CELL COUNT (BEAKER) (test jcbv=997) 2.84 M/ L 4.00-5.00 HEMOGLOBIN (BEAKER) (test dqby=095) 10.3 GM/DL 12.0-15.0 HEMATOCRIT (BEAKER) (test ryxp=390) 30.5 % 36.0-45.0 MEAN CORPUSCULAR VOLUME (BEAKER) (test dqfb=732) 108.0 fL 82.0-99.0 MEAN CORPUSCULAR HEMOGLOBIN (BEAKER) (test 36.5 pg 27.0-33.0 vuam=082) MEAN CORPUSCULAR HEMOGLOBIN CONC (BEAKER) (test 33.9 GM/DL 32.0-36.0 mubv=533) RED CELL DISTRIBUTION WIDTH (BEAKER) (test 13.1 % 10.3-14.2 ijvd=787) PLATELET COUNT (BEAKER) (test smxb=582) 112 K/CU MM 150-430 MEAN PLATELET VOLUME (BEAKER) (test fpaa=011) 7.7 fL 6.5-10.5 NUCLEATED RED BLOOD CELLS (BEAKER) (test 0 /100 WBC 0-0 jucq=397) NEUTROPHILS RELATIVE PERCENT (BEAKER) (test 61 % ahhf=291) LYMPHOCYTES RELATIVE PERCENT (BEAKER) (test 24 % pheq=068) MONOCYTES RELATIVE PERCENT (BEAKER) (test 13 % uptv=891) EOSINOPHILS RELATIVE PERCENT (BEAKER) (test 1 % uhdt=098) BASOPHILS RELATIVE PERCENT (BEAKER) (test 1 % seoq=069) NEUTROPHILS ABSOLUTE COUNT (BEAKER) (test 2.89 K/ L 1.80-8.00 zrkg=910) LYMPHOCYTES ABSOLUTE COUNT (BEAKER) (test 1.15 K/ L 1.48-4.50 hgtz=099) MONOCYTES ABSOLUTE COUNT (BEAKER) (test 0.62 K/ L 0.00-1.30 yghp=912) EOSINOPHILS ABSOLUTE COUNT (BEAKER) (test 0.06 K/ L 0.00-0.50 ewkq=005) BASOPHILS ABSOLUTE COUNT (BEAKER) (test 0.03 K/ L 0.00-0.20 bxqe=540) 0.00VITAMIN D, [id number] 07:07:00 Test Item Value Reference Range Comments VITAMIN D 25-OH (BEAKER) (test aowt=2849) 36.0 ng/mL 13.0-47.8 BASIC METABOLIC [id number] 04:51:00 Test Item Value Reference Range Comments SODIUM (BEAKER) (test 137 meq/L 136-145 mdta=747) POTASSIUM (BEAKER) (test 3.9 meq/L 3.5-5.1 mump=414) CHLORIDE (BEAKER) (test 108 meq/L 98-107 mloo=243) CO2 (BEAKER) (test 23 meq/L 22-29 yrwx=826) BLOOD UREA NITROGEN 7 mg/dL 7-21 (BEAKER) (test yxkr=113) CREATININE (BEAKER) (test 0.54 mg/dL 0.57-1.25 wmej=704) GLUCOSE RANDOM (BEAKER) 87 mg/dL 70-105 (test fjsq=135) CALCIUM (BEAKER) (test 8.0 mg/dL 8.4-10.2 qpmh=975) EGFR (BEAKER) (test 109 mL/min/1.73 sq m ESTIMATED GFR IS NOT wmml=6558) ACCURATE CREATININE CLEARANCE IN PREDICTING GLOMERULAR FILTRATION RATE. ESTIMATED GFR IS NOT APPLICABLE FOR DIALYSIS PATIENTS. BASIC METABOLIC [id number] 14:20:00 Test Item Value Reference Range Comments SODIUM (BEAKER) (test 137 meq/L 136-145 tkyy=661) POTASSIUM (BEAKER) (test 3.4 meq/L 3.5-5.1 roqc=653) CHLORIDE (BEAKER) (test 106 meq/L 98-107 bmya=243) CO2 (BEAKER) (test 21 meq/L 22-29 bptw=451) BLOOD UREA NITROGEN 7 mg/dL 7-21 (BEAKER) (test aprt=175) CREATININE (BEAKER) (test 0.61 mg/dL 0.57-1.25 pjts=675) GLUCOSE RANDOM (BEAKER) 158 mg/dL 70-105 (test zecd=891) CALCIUM (BEAKER) (test 8.0 mg/dL 8.4-10.2 tfha=165) EGFR (BEAKER) (test 94 mL/min/1.73 sq m ESTIMATED GFR IS NOT pcvl=5425) ACCURATE CREATININE CLEARANCE IN PREDICTING GLOMERULAR FILTRATION RATE. ESTIMATED GFR IS NOT APPLICABLE FOR DIALYSIS PATIENTS. URINALYSIS W/ [id number] 14:18:00 Test Item Value Reference Range Comments COLOR (BEAKER) (test thkj=702) Yellow CLARITY (BEAKER) (test evsl=296) Cloudy SPECIFIC GRAVITY UA (BEAKER) (test jphk=827) 1.015 1.001-1.035 PH UA (BEAKER) (test sjou=082) 5.5 5.0-8.0 PROTEIN UA (BEAKER) (test oeqf=206) 20 mg/dL Negative GLUCOSE UA (BEAKER) (test jlfs=453) Negative Negative KETONES UA (BEAKER) (test kcjr=202) 40 mg/dL Negative BILIRUBIN UA (BEAKER) (test syyn=351) Negative Negative BLOOD UA (BEAKER) (test uiim=757) Moderate Negative NITRITE UA (BEAKER) (test nhvs=284) Negative Negative LEUKOCYTE ESTERASE UA (BEAKER) (test ocin=222) Large Negative UROBILINOGEN UA (BEAKER) (test gpmc=092) 0.2 mg/dL 0.2-1.0 RBC UA (BEAKER) (test ffda=920) 23 /HPF WBC UA (BEAKER) (test mnwb=957) > /HPF BACTERIA (BEAKER) (test prod=614) Many MUCUS (BEAKER) (test nmrd=1271) Few SQUAMOUS EPITHELIAL (BEAKER) (test ukyz=783) 1 /HPF HYALINE CASTS (BEAKER) (test owzw=243) 10 /LPF SOURCE(BEAKER) (test aozj=2885) Urine, [place] CBC W/PLT COUNT & AUTO [id number] 14:16:00 Test Item Value Reference Range Comments WHITE BLOOD CELL COUNT (BEAKER) (test eutj=818) 3.8 K/ L 4.0-10.0 RED BLOOD CELL COUNT (BEAKER) (test nmur=913) 3.16 M/ L 4.00-5.00 HEMOGLOBIN (BEAKER) (test wdqs=186) 11.3 GM/DL 12.0-15.0 HEMATOCRIT (BEAKER) (test lyrh=914) 33.6 % 36.0-45.0 MEAN CORPUSCULAR VOLUME (BEAKER) (test rjlx=768) 106.0 fL 82.0-99.0 MEAN CORPUSCULAR HEMOGLOBIN (BEAKER) (test 35.8 pg 27.0-33.0 iiqs=629) MEAN CORPUSCULAR HEMOGLOBIN CONC (BEAKER) (test 33.7 GM/DL 32.0-36.0 rdfi=984) RED CELL DISTRIBUTION WIDTH (BEAKER) (test 14.4 % 10.3-14.2 jygc=140) PLATELET COUNT (BEAKER) (test wkod=424) 100 K/CU MM 150-430 MEAN PLATELET VOLUME (BEAKER) (test gtcy=284) 7.7 fL 6.5-10.5 NUCLEATED RED BLOOD CELLS (BEAKER) (test 0 /100 WBC 0-0 xzln=288) NEUTROPHILS RELATIVE PERCENT (BEAKER) (test 84 % thsc=221) LYMPHOCYTES RELATIVE PERCENT (BEAKER) (test 12 % sqyl=550) MONOCYTES RELATIVE PERCENT (BEAKER) (test 3 % ewgs=046) EOSINOPHILS RELATIVE PERCENT (BEAKER) (test 1 % pbgp=852) BASOPHILS RELATIVE PERCENT (BEAKER) (test 0 % gtyd=181) NEUTROPHILS ABSOLUTE COUNT (BEAKER) (test 3.16 K/ L 1.80-8.00 rilo=661) LYMPHOCYTES ABSOLUTE COUNT (BEAKER) (test 0.46 K/ L 1.48-4.50 srim=396) MONOCYTES ABSOLUTE COUNT (BEAKER) (test 0.11 K/ L 0.00-1.30 qpnc=667) EOSINOPHILS ABSOLUTE COUNT (BEAKER) (test 0.02 K/ L 0.00-0.50 sqtj=533) BASOPHILS ABSOLUTE COUNT (BEAKER) (test 0.00 K/ L 0.00-0.20 vrbj=547) 0.00IMMUNOFIXATION ELECTROPHORESIS (MARCO)[id number] 14:13:00 Test Item Value Reference Range Comments IMMUNOGLOBULIN G (IGG) 1073 mg/dL 751-1560 (BEAKER) (test ojqa=144) IMMUNOGLOBULIN A (IGA) 604 mg/dL 82-453 (BEAKER) (test hpqj=823) IMMUNOGLOBULIN M (IGM) 152 mg/dL 46-304 (BEAKER) (test jsmu=090) SERUM MARCO ID (BEAKER) (test IgA-kappa, monoclonal; ldro=9152) IgG-lambda monoclonal (Note: monoclonal proteins are small in concentration; majority of immunoglobulin present is polyclonal in nature.) [id number] (BEAKER) Joseline Alvarado MD (test nsej=3012) (electronic signature) PROTEIN ELECTROPHORESIS, [id number] 13:57:00 Test Item Value Reference Range Comments ALBUMIN FRACTION (BEAKER) 2.7 g/dL 3.5-5.5 (test phvf=383) ALPHA 1 FRACTION (BEAKER) 0.3 g/dL 0.2-0.4 (test ryzs=349) ALPHA 2 FRACTION (BEAKER) 0.6 g/dL 0.5-0.9 (test cfqy=106) BETA FRACTION (BEAKER) (test 0.8 g/dL 0.6-1.1 tggf=748) GAMMA GLOBULIN FRACTION 1.3 g/dL 0.7-1.7 (BEAKER) (test higf=306) INTERPRETATION-119 (BEAKER) Decreased albumin and slight (test ypss=1952) beta-gamma bridging, consistent with hepatic dysfunction. Small restrictions present in gamma region; serum MARCO ordered for further characterization. [id number] Joseline Alvarado MD (BEAKER) (test qnex=6490) (electronic signature) PROTEIN TOTAL SERUM, SPEP 5.6 gm/dL 6.0-8.3 (BEAKER) (test tmml=1240) CBC W/PLT COUNT & AUTO [id number] 12:30:00 Test Item Value Reference Range Comments WHITE BLOOD CELL COUNT (BEAKER) (test ijdn=049) 3.4 K/ L 4.0-10.0 RED BLOOD CELL COUNT (BEAKER) (test hfds=945) 3.38 M/ L 4.00-5.00 HEMOGLOBIN (BEAKER) (test urhf=764) 11.9 GM/DL 12.0-15.0 HEMATOCRIT (BEAKER) (test kwmh=341) 35.4 % 36.0-45.0 MEAN CORPUSCULAR VOLUME (BEAKER) (test xjnn=728) 105.0 fL 82.0-99.0 MEAN CORPUSCULAR HEMOGLOBIN (BEAKER) (test 35.2 pg 27.0-33.0 omdl=161) MEAN CORPUSCULAR HEMOGLOBIN CONC (BEAKER) (test 33.6 GM/DL 32.0-36.0 biat=563) RED CELL DISTRIBUTION WIDTH (BEAKER) (test 13.0 % 10.3-14.2 syus=361) PLATELET COUNT (BEAKER) (test fmnl=809) 110 K/CU MM 150-430 MEAN PLATELET VOLUME (BEAKER) (test sdcl=553) 7.7 fL 6.5-10.5 NUCLEATED RED BLOOD CELLS (BEAKER) (test 0 /100 WBC 0-0 bpxo=320) NEUTROPHILS RELATIVE PERCENT (BEAKER) (test 78 % bxzq=764) LYMPHOCYTES RELATIVE PERCENT (BEAKER) (test 15 % wtcw=440) MONOCYTES RELATIVE PERCENT (BEAKER) (test 5 % npbv=984) EOSINOPHILS RELATIVE PERCENT (BEAKER) (test 2 % ktbc=769) BASOPHILS RELATIVE PERCENT (BEAKER) (test 0 % ywsz=262) NEUTROPHILS ABSOLUTE COUNT (BEAKER) (test 2.67 K/ L 1.80-8.00 pfjt=014) LYMPHOCYTES ABSOLUTE COUNT (BEAKER) (test 0.51 K/ L 1.48-4.50 rirf=959) MONOCYTES ABSOLUTE COUNT (BEAKER) (test 0.17 K/ L 0.00-1.30 hlnw=515) EOSINOPHILS ABSOLUTE COUNT (BEAKER) (test 0.06 K/ L 0.00-0.50 yrcg=056) BASOPHILS ABSOLUTE COUNT (BEAKER) (test 0.01 K/ L 0.00-0.20 xgbr=214) 0.00GLUCOSE-STAT [id number] 10:51:00 Test Item Value Reference Range Comments GLUCOSE RANDOM (BEAKER) (test hebl=759) 106 mg/dL 70-110 SODIUM NA-STAT [id number] 10:51:00 Test Item Value Reference Range Comments SODIUM (BEAKER) (test rhtw=362) 136 meq/L 135-148 BLOOD GAS, [id number] 10:51:00 Test Item Value Reference Range Comments PH ARTERIAL (BEAKER) (test zvmw=855) 7.41 7.35-7.45 PCO2 ARTERIAL (BEAKER) (test etoo=846) 38 mmHg 35-45 PO2 ARTERIAL (BEAKER) (test khvw=783) 243 mmHg 80-90 O2 SATURATION ARTERIAL (BEAKER) (test wnap=731) 99.6 % 96.0-97.0 HCO3 ARTERIAL (BEAKER) (test mtpk=519) 24 mmol/L 21-29 BASE EXCESS ARTERIAL (BEAKER) (test ubva=036) -0.7 mmol/L -2.0-3.0 PATIENT TEMPERATURE (BEAKER) (test zvqb=6603) 37.0 C FIO2 (BEAKER) (test syxs=1452) 100.0 % HGB/HCT (H&H) - STAT [id number] 10:51:00 Test Item Value Reference Range Comments HEMOGLOBIN (BEAKER) (test yujk=577) 11.6 g/dL 12.0-15.0 HEMATOCRIT (BEAKER) (test vgpa=709) 34.0 % 36.0-45.0 POTASSIUM-STAT [id number] 10:51:00 Test Item Value Reference Range Comments POTASSIUM (BEAKER) (test dntc=891) 3.1 meq/L 3.6-5.5 CALCIUM, [id number] 10:51:00 Test Item Value Reference Range Comments CALCIUM IONIZED (BEAKER) (test kxll=855) 1.06 mmol/L 1.12-1.27 PH, BLOOD (BEAKER) (test ufci=9374) 7.41 [id number] 10:13:00 Test Item Value Reference Range Comments HAPTOGLOBIN (BEAKER) (test ffkn=705) 119 mg/dL -258 Effective 01/10/2014: Reference Range ChangeNew: - Previous: 36-195CBC W/ PLT COUNT & AUTO [id number] 08:03:00 Test Item Value Reference Range Comments WHITE BLOOD CELL COUNT (BEAKER) (test cvsy=145) 3.1 K/ L 4.0-10.0 RED BLOOD CELL COUNT (BEAKER) (test vluh=274) 4.32 M/ L 4.00-5.00 HEMOGLOBIN (BEAKER) (test vjvx=596) 14.8 GM/DL 12.0-15.0 HEMATOCRIT (BEAKER) (test iuwn=583) 46.6 % 36.0-45.0 MEAN CORPUSCULAR VOLUME (BEAKER) (test abdq=398) 108.0 fL 82.0-99.0 MEAN CORPUSCULAR HEMOGLOBIN (BEAKER) (test 34.3 pg 27.0-33.0 gmfn=215) MEAN CORPUSCULAR HEMOGLOBIN CONC (BEAKER) (test 31.9 GM/DL 32.0-36.0 ndfc=354) RED CELL DISTRIBUTION WIDTH (BEAKER) (test 14.9 % 10.3-14.2 oezm=269) PLATELET COUNT (BEAKER) (test avrl=709) 88 K/CU MM 150-430 MEAN PLATELET VOLUME (BEAKER) (test pudc=812) 8.5 fL 6.5-10.5 NUCLEATED RED BLOOD CELLS (BEAKER) (test 0 /100 WBC 0-0 lysk=710) NEUTROPHILS RELATIVE PERCENT (BEAKER) (test 67 % nqrn=306) LYMPHOCYTES RELATIVE PERCENT (BEAKER) (test 24 % fpwt=590) MONOCYTES RELATIVE PERCENT (BEAKER) (test 2 % edkz=597) EOSINOPHILS RELATIVE PERCENT (BEAKER) (test 6 % lrea=244) BASOPHILS RELATIVE PERCENT (BEAKER) (test 0 % zaoe=439) NEUTROPHILS ABSOLUTE COUNT (BEAKER) (test 2.04 K/ L 1.80-8.00 rnbk=914) LYMPHOCYTES ABSOLUTE COUNT (BEAKER) (test 0.74 K/ L 1.48-4.50 mert=756) MONOCYTES ABSOLUTE COUNT (BEAKER) (test hrwi=184) 0.07 K/ L 0.00-1.30 EOSINOPHILS ABSOLUTE COUNT (BEAKER) (test 0.19 K/ L 0.00-0.50 cjti=202) BASOPHILS ABSOLUTE COUNT (BEAKER) (test fogy=835) 0.01 K/ L 0.00-0.20 0.000.500.000.000.000.000.000.000.000.000.000.000.000.000.000.000.000.000.000.00 0.000.500.000.000.000.000.00 (MANUAL DIFFERENTIAL)2016-08-11 08:03:00 Test Item Value Reference Range Comments TOTAL COUNTED (BEAKER) (test ekwl=0196) WBC MORPHOLOGY (BEAKER) (test jvgi=763) Normal PLT MORPHOLOGY (BEAKER) (test yres=272) Normal RBC MORPHOLOGY (BEAKER) (test sdzp=532) Normal BASIC METABOLIC [id number] 05:10:00 Test Item Value Reference Range Comments SODIUM (BEAKER) (test 136 meq/L 136-145 jlex=162) POTASSIUM (BEAKER) (test 3.8 meq/L 3.5-5.1 dbkx=318) CHLORIDE (BEAKER) (test 100 meq/L 98-107 njxa=423) CO2 (BEAKER) (test 26 meq/L 22-29 swrl=420) BLOOD UREA NITROGEN 7 mg/dL 7-21 (BEAKER) (test elns=632) CREATININE (BEAKER) (test 0.62 mg/dL 0.57-1.25 ekwp=665) GLUCOSE RANDOM (BEAKER) 75 mg/dL 70-105 (test cmir=642) CALCIUM (BEAKER) (test 9.7 mg/dL 8.4-10.2 hkpb=206) EGFR (BEAKER) (test 93 mL/min/1.73 sq m ESTIMATED GFR IS NOT bpkk=6724) ACCURATE CREATININE CLEARANCE IN PREDICTING GLOMERULAR FILTRATION RATE. ESTIMATED GFR IS NOT APPLICABLE FOR DIALYSIS PATIENTS. PLATELET [id number] 17:22:00 Test Item Value Reference Range Comments PLATELET COUNT (BEAKER) (test rkth=529) 62 K/CU MM 150-430 Performed on a blue top tubePROTHROMBIN TIME/[id number] 14:25:00 Test Item Value Reference Range Comments PROTIME (BEAKER) (test asrf=902) 14.1 seconds 11.7-14.7 INR (BEAKER) (test zzqg=186) 1.1 <=5.9 RECOMMENDED COUMADIN/WARFARIN INR THERAPY RANGESSTANDARD DOSE: 2.0 - 3.0 Includes: PROPHYLAXIS forvenous thrombosis, systemic embolization; TREATMENT for venous thrombosis and/or pulmonary embolus.HIGH RISK: Target INR is 2.5-3.5 for patients with mechanical heart valves.HEPATIC FUNCTION [id number] 14:02 :00 Test Item Value Reference Range Comments TOTAL PROTEIN (BEAKER) (test spit=024) 6.8 gm/dL 6.0-8.3 ALBUMIN (BEAKER) (test adxm=6595) 3.2 g/dL 3.5-5.0 BILIRUBIN TOTAL (BEAKER) (test yxwr=386) 0.8 mg/dL 0.2-1.2 BILIRUBIN DIRECT (BEAKER) (test vqzh=284) 0.4 mg/dL 0.1-0.5 ALKALINE PHOSPHATASE (BEAKER) (test upot=240) 172 U/L 40-150 AST (SGOT) (BEAKER) (test ntfj=731) 38 U/L 5-34 ALT (SGPT) (BEAKER) (test egff=762) 19 U/L 6-55 PERIPHERAL BLOOD SMEAR - HOLD [id number] 11:16:00 Test Item Value Reference Range Comments PERIPHERAL SMEAR SAVE (BEAKER) (test cvkb=7296) saved CBC (HEMOGRAM ONLY)2016-08-10 10:18:00 Test Item Value Reference Range Comments WHITE BLOOD CELL COUNT (BEAKER) (test mhyu=196) 3.3 K/ L 4.0-10.0 RED BLOOD CELL COUNT (BEAKER) (test trtc=667) 3.63 M/ L 4.00-5.00 HEMOGLOBIN (BEAKER) (test nszh=341) 13.0 GM/DL 12.0-15.0 HEMATOCRIT (BEAKER) (test igvd=254) 38.9 % 36.0-45.0 MEAN CORPUSCULAR VOLUME (BEAKER) (test wfcn=672) 107.0 fL 82.0-99.0 MEAN CORPUSCULAR HEMOGLOBIN (BEAKER) (test 35.8 pg 27.0-33.0 lrfy=468) MEAN CORPUSCULAR HEMOGLOBIN CONC (BEAKER) (test 33.5 GM/DL 32.0-36.0 uhmu=642) RED CELL DISTRIBUTION WIDTH (BEAKER) (test 14.7 % 10.3-14.2 jtde=106) PLATELET COUNT (BEAKER) (test rpgu=017) 85 K/CU MM 150-430 MEAN PLATELET VOLUME (BEAKER) (test xutr=153) 7.8 fL 6.5-10.5 NUCLEATED RED BLOOD CELLS (BEAKER) (test 0 /100 WBC 0-0 fhwt=021) 0.00CBC W/PLT COUNT & AUTO [id number] 09:44:00 Test Item Value Reference Range Comments WHITE BLOOD CELL COUNT (BEAKER) (test kqnc=902) 3.2 K/ L 4.0-10.0 RED BLOOD CELL COUNT (BEAKER) (test foof=059) 3.80 M/ L 4.00-5.00 HEMOGLOBIN (BEAKER) (test ealg=866) 12.7 GM/DL 12.0-15.0 HEMATOCRIT (BEAKER) (test iahr=979) 41.0 % 36.0-45.0 MEAN CORPUSCULAR VOLUME (BEAKER) (test xsto=953) 108.0 fL 82.0-99.0 MEAN CORPUSCULAR HEMOGLOBIN (BEAKER) (test 33.5 pg 27.0-33.0 kpes=133) MEAN CORPUSCULAR HEMOGLOBIN CONC (BEAKER) (test 31.1 GM/DL 32.0-36.0 wekw=693) RED CELL DISTRIBUTION WIDTH (BEAKER) (test 13.4 % 10.3-14.2 qjuo=730) PLATELET COUNT (BEAKER) (test nmkx=218) 103 K/CU MM 150-430 MEAN PLATELET VOLUME (BEAKER) (test sodr=183) 8.7 fL 6.5-10.5 NUCLEATED RED BLOOD CELLS (BEAKER) (test 0 /100 WBC 0-0 jboj=226) NEUTROPHILS RELATIVE PERCENT (BEAKER) (test 42 % rfty=629) LYMPHOCYTES RELATIVE PERCENT (BEAKER) (test 41 % ebdg=063) MONOCYTES RELATIVE PERCENT (BEAKER) (test 9 % anpa=379) EOSINOPHILS RELATIVE PERCENT (BEAKER) (test 7 % gqmz=505) BASOPHILS RELATIVE PERCENT (BEAKER) (test 1 % qolh=604) NEUTROPHILS ABSOLUTE COUNT (BEAKER) (test 1.33 K/ L 1.80-8.00 uqlb=531) LYMPHOCYTES ABSOLUTE COUNT (BEAKER) (test 1.30 K/ L 1.48-4.50 tgbu=855) MONOCYTES ABSOLUTE COUNT (BEAKER) (test 0.28 K/ L 0.00-1.30 rkww=229) EOSINOPHILS ABSOLUTE COUNT (BEAKER) (test 0.23 K/ L 0.00-0.50 zfgc=212) BASOPHILS ABSOLUTE COUNT (BEAKER) (test 0.03 K/ L 0.00-0.20 hhim=367) 0.00SI METABOLIC [id number] 06:57:00 Test Item Value Reference Range Comments SODIUM (BEAKER) (test 139 meq/L 136-145 vton=640) POTASSIUM (BEAKER) (test 3.7 meq/L 3.5-5.1 hlsz=756) CHLORIDE (BEAKER) (test 105 meq/L 98-107 wdwa=698) CO2 (BEAKER) (test 27 meq/L 22-29 yfag=131) BLOOD UREA NITROGEN 7 mg/dL 7-21 (BEAKER) (test jlnc=219) CREATININE (BEAKER) (test 0.51 mg/dL 0.57-1.25 pmjd=354) GLUCOSE RANDOM (BEAKER) 76 mg/dL 70-105 (test uofq=633) CALCIUM (BEAKER) (test 8.8 mg/dL 8.4-10.2 wemk=491) EGFR (BEAKER) (test 116 mL/min/1.73 sq m ESTIMATED GFR IS NOT skyq=0887) ACCURATE CREATININE CLEARANCE IN PREDICTING GLOMERULAR FILTRATION RATE. ESTIMATED GFR IS NOT APPLICABLE FOR DIALYSIS PATIENTS. HEPATITIS PANEL, [id number] 20:30:00 Test Item Value Reference Range Comments HEPATITIS A IGM ANTIBODY (BEAKER) (test Nonreactive Nonreactive bdvf=249) HEPATITIS B CORE IGM ANTIBODY (BEAKER) (test Nonreactive Nonreactive xptz=762) HEPATITIS C ANTIBODY (BEAKER) (test pzdm=840) Nonreactive Nonreactive HEPATITIS B SURFACE ANTIGEN (2) (BEAKER) (test Nonreactive Nonreactive fktj=0736) [id number] 18:19:00 Test Item Value Reference Range Comments FIBRINOGEN LEVEL (BEAKER) (test qoco=201) 319 mg/dl 225-434 CBC W/PLT COUNT & AUTO [id number] 11:50:00 Test Item Value Reference Range Comments WHITE BLOOD CELL COUNT (BEAKER) (test wsmx=163) 4.5 K/ L 4.0-10.0 RED BLOOD CELL COUNT (BEAKER) (test sukh=246) 3.67 M/ L 4.00-5.00 HEMOGLOBIN (BEAKER) (test rxyt=628) 13.1 GM/DL 12.0-15.0 HEMATOCRIT (BEAKER) (test deov=622) 40.6 % 36.0-45.0 MEAN CORPUSCULAR VOLUME (BEAKER) (test zcao=530) 111.0 fL 82.0-99.0 MEAN CORPUSCULAR HEMOGLOBIN (BEAKER) (test 35.8 pg 27.0-33.0 ijdh=515) MEAN CORPUSCULAR HEMOGLOBIN CONC (BEAKER) (test 32.3 GM/DL 32.0-36.0 xnaz=140) RED CELL DISTRIBUTION WIDTH (BEAKER) (test 13.3 % 10.3-14.2 lica=977) PLATELET COUNT (BEAKER) (test aqfc=016) 79 K/CU MM 150-430 MEAN PLATELET VOLUME (BEAKER) (test bjpi=819) 9.1 fL 6.5-10.5 NUCLEATED RED BLOOD CELLS (BEAKER) (test 0 /100 WBC 0-0 msua=881) NEUTROPHILS RELATIVE PERCENT (BEAKER) (test 31 % gbaf=223) LYMPHOCYTES RELATIVE PERCENT (BEAKER) (test 53 % pfhv=235) MONOCYTES RELATIVE PERCENT (BEAKER) (test 9 % kbmn=676) EOSINOPHILS RELATIVE PERCENT (BEAKER) (test 7 % kztz=560) BASOPHILS RELATIVE PERCENT (BEAKER) (test 1 % kqvk=766) NEUTROPHILS ABSOLUTE COUNT (BEAKER) (test 1.37 K/ L 1.80-8.00 yvhk=977) LYMPHOCYTES ABSOLUTE COUNT (BEAKER) (test 2.35 K/ L 1.48-4.50 fhvn=274) MONOCYTES ABSOLUTE COUNT (BEAKER) (test cmlq=120) 0.42 K/ L 0.00-1.30 EOSINOPHILS ABSOLUTE COUNT (BEAKER) (test 0.29 K/ L 0.00-0.50 rvgl=744) BASOPHILS ABSOLUTE COUNT (BEAKER) (test lovu=720) 0.04 K/ L 0.00-0.20 0.000.500.000.000.000.000.000.000.000.000.000.000.000.000.000.000.000.000.000.00 0.000.000.000.000.000.000.00 (MANUAL DIFFERENTIAL)2016-08-09 11:50:00 Test Item Value Reference Range Comments TOTAL COUNTED (BEAKER) (test mrya=7970) WBC MORPHOLOGY (BEAKER) (test lavs=257) Normal LARGE PLT(BEAKER) (test rhbg=8167) Present ANISOCYTOSIS (BEAKER) (test wkol=504) 1+ few POIKILOCYTES (BEAKER) (test ddlz=417) 1+ few BASIC METABOLIC [id number] 04:54:00 Test Item Value Reference Range Comments SODIUM (BEAKER) (test 138 meq/L 136-145 ylep=758) POTASSIUM (BEAKER) (test 3.8 meq/L 3.5-5.1 kect=939) CHLORIDE (BEAKER) (test 106 meq/L 98-107 cfgx=233) CO2 (BEAKER) (test 25 meq/L 22-29 qdnp=498) BLOOD UREA NITROGEN 8 mg/dL 7-21 (BEAKER) (test ezbm=029) CREATININE (BEAKER) (test 0.51 mg/dL 0.57-1.25 isiz=784) GLUCOSE RANDOM (BEAKER) 79 mg/dL 70-105 (test hdiy=351) CALCIUM (BEAKER) (test 8.4 mg/dL 8.4-10.2 sdbz=966) EGFR (BEAKER) (test 116 mL/min/1.73 sq m ESTIMATED GFR IS NOT ardz=3415) ACCURATE CREATININE CLEARANCE IN PREDICTING GLOMERULAR FILTRATION RATE. ESTIMATED GFR IS NOT APPLICABLE FOR DIALYSIS PATIENTS. RETICULOCYTE [id number] 15:13:00 Test Item Value Reference Range Comments RETICULOCYTE COUNT PCT (BEAKER) (test zmzm=934) 3.8 % 0.4-2.9 LACTATE DEHYDROGENASE (LDH)2016-08-08 15:12:00 Test Item Value Reference Range Comments LACTATE DEHYDROGENASE (BEAKER) (test cprc=836) 146 U/L 125-220 CBC W/PLT COUNT & AUTO [id number] 11:10:00 Test Item Value Reference Range Comments WHITE BLOOD CELL COUNT (BEAKER) (test mzrm=996) 3.7 K/ L 4.0-10.0 RED BLOOD CELL COUNT (BEAKER) (test lmvo=674) 4.27 M/ L 4.00-5.00 HEMOGLOBIN (BEAKER) (test rdts=702) 14.5 GM/DL 12.0-15.0 HEMATOCRIT (BEAKER) (test uawi=510) 46.2 % 36.0-45.0 MEAN CORPUSCULAR VOLUME (BEAKER) (test ccch=163) 108.0 fL 82.0-99.0 MEAN CORPUSCULAR HEMOGLOBIN (BEAKER) (test 34.1 pg 27.0-33.0 hane=730) MEAN CORPUSCULAR HEMOGLOBIN CONC (BEAKER) (test 31.5 GM/DL 32.0-36.0 vqxu=817) RED CELL DISTRIBUTION WIDTH (BEAKER) (test 15.0 % 10.3-14.2 xufa=237) PLATELET COUNT (BEAKER) (test tjgk=552) 34 K/CU MM 150-430 MEAN PLATELET VOLUME (BEAKER) (test cztr=222) 6.3 fL 6.5-10.5 NUCLEATED RED BLOOD CELLS (BEAKER) (test 0 /100 WBC 0-0 qwsg=389) 0.00(MANUAL DIFFERENTIAL)2016-08-08 11:10:00 Test Item Value Reference Range Comments NEUTROPHILS - REL (DIFF) (BEAKER) (test lzen=6872) 43 % LYMPHOCYTES - REL (DIFF) (BEAKER) (test qyli=9657) 45 % MONOCYTES - REL (DIFF) (BEAKER) (test iqkc=5945) 8 % EOSINOPHILS - REL (DIFF) (BEAKER) (test ouco=3445) 1 % BANDS - REL (DIFF) (BEAKER) (test pyqa=6573) 3 % 0-10 NEUTROPHILS - ABS (DIFF) (BEAKER) (test amey=7494) 1.59 K/ L 1.80-8.00 LYMPHOCYTES - ABS (DIFF) (BEAKER) (test yjax=8664) 1.67 K/ L 1.48-4.50 MONOCYTES - ABS (DIFF) (BEAKER) (test hqbg=6363) 0.30 K/ L 0.00-1.30 EOSINOPHILS - ABS (DIFF) (BEAKER) (test rill=4558) 0.04 K/ L 0.00-0.50 BANDS-ABS (DIFF) (BEAKER) (test fmit=2486) 0.1 K/ L 0.0-0.8 TOTAL COUNTED (BEAKER) (test edmm=1730) 100 BANDS + SEGMENTED NEUTROPHILS (BEAKER) (test 1.70 itue=2131) WBC MORPHOLOGY (BEAKER) (test cbrj=417) Normal PLT MORPHOLOGY (BEAKER) (test jthw=699) Normal RBC MORPHOLOGY (BEAKER) (test lmrj=438) Normal VITAMIN B12 AND [id number] 07:29:00 Test Item Value Reference Range Comments VITAMIN B12 (BEAKER) (test pnsp=336) 486 pg/mL 213-816 FOLATE (BEAKER) (test cdxu=420) 17.2 ng/mL >=7.0 Effective 01/10/2014: Folate Reference Range ChangeNew: >=7.0 Previous: & gt;=5.4BASIC METABOLIC [id number] 07:05:00 Test Item Value Reference Range Comments SODIUM (BEAKER) (test 136 meq/L 136-145 wyrr=299) POTASSIUM (BEAKER) (test 3.8 meq/L 3.5-5.1 Specimen slightly hhhl=512) hemolyzed CHLORIDE (BEAKER) (test 101 meq/L 98-107 zrna=310) CO2 (BEAKER) (test 28 meq/L 22-29 fbkk=266) BLOOD UREA NITROGEN 8 mg/dL 7-21 (BEAKER) (test oftk=849) CREATININE (BEAKER) (test 0.57 mg/dL 0.57-1.25 Specimen slightly tvfs=827) hemolyzed GLUCOSE RANDOM (BEAKER) 87 mg/dL 70-105 (test efos=155) CALCIUM (BEAKER) (test 9.2 mg/dL 8.4-10.2 pvnf=174) EGFR (BEAKER) (test 102 mL/min/1.73 sq m ESTIMATED GFR IS NOT wsoe=6825) ACCURATE CREATININE CLEARANCE IN PREDICTING GLOMERULAR FILTRATION RATE. ESTIMATED GFR IS NOT APPLICABLE FOR DIALYSIS PATIENTS. COMPREHENSIVE METABOLIC [id number] 07:05:00 Test Item Value Reference Range Comments TOTAL PROTEIN (BEAKER) 6.9 gm/dL 6.0-8.3 Specimen slightly (test vyuk=303) hemolyzed ALBUMIN (BEAKER) (test 3.3 g/dL 3.5-5.0 Specimen slightly fywg=6004) hemolyzed ALKALINE PHOSPHATASE 150 U/L 40-150 (BEAKER) (test xctu=037) BILIRUBIN TOTAL (BEAKER) 1.0 mg/dL 0.2-1.2 Specimen slightly (test wscu=561) hemolyzed SODIUM (BEAKER) (test 136 meq/L 136-145 lhka=827) POTASSIUM (BEAKER) (test 3.8 meq/L 3.5-5.1 Specimen slightly pgej=241) hemolyzed CHLORIDE (BEAKER) (test 101 meq/L 98-107 hsja=722) CO2 (BEAKER) (test 28 meq/L 22-29 tlql=737) BLOOD UREA NITROGEN 8 mg/dL 7-21 (BEAKER) (test vcpt=543) CREATININE (BEAKER) (test 0.57 mg/dL 0.57-1.25 Specimen slightly zdxc=954) hemolyzed GLUCOSE RANDOM (BEAKER) 87 mg/dL 70-105 (test jaku=861) CALCIUM (BEAKER) (test 9.2 mg/dL 8.4-10.2 hpjj=854) AST (SGOT) (BEAKER) (test 43 U/L 5-34 Specimen slightly nbok=386) hemolyzed ALT (SGPT) (BEAKER) (test 17 U/L 6-55 Specimen slightly dltb=480) hemolyzed EGFR (BEAKER) (test 102 mL/min/1.73 sq ESTIMATED GFR IS NOT efnk=1513) m ACCURATE CREATININE CLEARANCE IN PREDICTING GLOMERULAR FILTRATION RATE. ESTIMATED GFR IS NOT APPLICABLE FOR DIALYSIS PATIENTS. PERIPHERAL BLOOD SMEAR - PATHOLOGIST [id number] 14:45:00 Test Item Value Reference Range Comments PERIPHERAL SMR REVIEW Thrombocytopenia. (BEAKER) (test rwme=6663) Occasional large forms. No clumping or satellitosis. [id number] Ele (BEAKER) (test jkhd=9581) Ama Carmen (electronic signature) CBC (HEMOGRAM ONLY)2016-08-07 10:59:00 Test Item Value Reference Range Comments WHITE BLOOD CELL COUNT (BEAKER) (test czkw=272) 4.8 K/ L 4.0-10.0 RED BLOOD CELL COUNT (BEAKER) (test rqpp=339) 4.23 M/ L 4.00-5.00 HEMOGLOBIN (BEAKER) (test fmky=825) 14.9 GM/DL 12.0-15.0 HEMATOCRIT (BEAKER) (test oanz=030) 46.1 % 36.0-45.0 MEAN CORPUSCULAR VOLUME (BEAKER) (test vvoi=105) 109.0 fL 82.0-99.0 MEAN CORPUSCULAR HEMOGLOBIN (BEAKER) (test 35.3 pg 27.0-33.0 zvtm=207) MEAN CORPUSCULAR HEMOGLOBIN CONC (BEAKER) (test 32.4 GM/DL 32.0-36.0 otsn=480) RED CELL DISTRIBUTION WIDTH (BEAKER) (test 14.9 % 10.3-14.2 iakq=954) PLATELET COUNT (BEAKER) (test vbji=844) 82 K/CU MM 150-430 MEAN PLATELET VOLUME (BEAKER) (test ajka=782) 8.8 fL 6.5-10.5 NUCLEATED RED BLOOD CELLS (BEAKER) (test 0 /100 WBC 0-0 frzo=159) 0.00(MANUAL DIFFERENTIAL)2016-08-07 10:59:00 Test Item Value Reference Range Comments NEUTROPHILS - REL (DIFF) (BEAKER) (test 48 % beol=3145) LYMPHOCYTES - REL (DIFF) (BEAKER) (test 38 % whhj=0851) MONOCYTES - REL (DIFF) (BEAKER) (test epiw=4591) 9 % EOSINOPHILS - REL (DIFF) (BEAKER) (test 5 % hfte=5667) NEUTROPHILS - ABS (DIFF) (BEAKER) (test 2.30 K/ L 1.80-8.00 folp=8566) LYMPHOCYTES - ABS (DIFF) (BEAKER) (test 1.82 K/ L 1.48-4.50 bmtb=4061) MONOCYTES - ABS (DIFF) (BEAKER) (test zesx=6505) 0.43 K/ L 0.00-1.30 EOSINOPHILS - ABS (DIFF) (BEAKER) (test 0.24 K/ L 0.00-0.50 ljji=8261) TOTAL COUNTED (BEAKER) (test dqud=4161) 100 MANUAL NRBC PER 100 CELLS (BEAKER) (test 1 /100 WBC 0-0 ccsg=2764) WBC MORPHOLOGY (BEAKER) (test llag=173) Normal PLT MORPHOLOGY (BEAKER) (test fwlj=907) Normal RBC MORPHOLOGY (BEAKER) (test hyqs=856) Normal TSH/FREE T4 IF [id number] 08:56:00 Test Item Value Reference Range Comments THYROID STIMULATING HORMONE (BEAKER) (test 0.38 uIU/mL 0.35-4.94 leod=587) BASIC METABOLIC [id number] 08:03:00 Test Item Value Reference Range Comments SODIUM (BEAKER) (test 137 meq/L 136-145 wyvj=747) POTASSIUM (BEAKER) (test 4.3 meq/L 3.5-5.1 Specimen slightly xate=836) hemolyzed CHLORIDE (BEAKER) (test 105 meq/L 98-107 iznv=158) CO2 (BEAKER) (test 23 meq/L 22-29 trel=830) BLOOD UREA NITROGEN 9 mg/dL 7-21 (BEAKER) (test qvnx=161) CREATININE (BEAKER) (test 0.55 mg/dL 0.57-1.25 Specimen slightly xagf=191) hemolyzed GLUCOSE RANDOM (BEAKER) 79 mg/dL 70-105 (test pvpt=080) CALCIUM (BEAKER) (test 8.7 mg/dL 8.4-10.2 yjqx=123) EGFR (BEAKER) (test 106 mL/min/1.73 sq m ESTIMATED GFR IS NOT gokk=2312) ACCURATE CREATININE CLEARANCE IN PREDICTING GLOMERULAR FILTRATION RATE. ESTIMATED GFR IS NOT APPLICABLE FOR DIALYSIS PATIENTS. [id number] 07:51:00 Test Item Value Reference Range Comments PARTIAL THROMBOPLASTIN TIME (BEAKER) (test 33.1 seconds 22.5-36.0 dvec=844) PROTHROMBIN [id number] 07:50:00 Test Item Value Reference Range Comments PROTIME (BEAKER) (test hvdz=187) 15.0 seconds 11.7-14.7 INR (BEAKER) (test aftu=118) 1.2 <=5.9 RECOMMENDED COUMADIN/WARFARIN INR THERAPY RANGESSTANDARD DOSE: 2.0 - 3.0 Includes: PROPHYLAXIS forvenous thrombosis, systemic embolization; TREATMENT for venous thrombosis and/or pulmonary embolus.HIGH RISK: Target INR is 2.5-3.5 for patients with mechanical heart valves.T4, [id number] 10:11:00 Test Item Value Reference Range Comments FREE T4 (BEAKER) (test gqzg=424) 1.49 ng/dL 0.70-1.48 TSH/FREE T4 IF [id number] 06:27:00 Test Item Value Reference Range Comments THYROID STIMULATING HORMONE (BEAKER) (test 11.79 uIU/mL 0.35-4.94 iunw=839) CBC W/PLT COUNT & AUTO [id number] 09:40:00 Test Item Value Reference Range Comments WHITE BLOOD CELL COUNT (BEAKER) (test fzmi=099) 7.6 K/ L 4.0-10.0 RED BLOOD CELL COUNT (BEAKER) (test eors=379) 3.28 M/ L 4.00-5.00 HEMOGLOBIN (BEAKER) (test bwsh=719) 13.6 GM/DL 12.0-15.0 HEMATOCRIT (BEAKER) (test lpqn=304) 37.7 % 36.0-45.0 MEAN CORPUSCULAR VOLUME (BEAKER) (test pwoc=022) 115.0 fL 82.0-99.0 MEAN CORPUSCULAR HEMOGLOBIN (BEAKER) (test 41.4 pg 27.0-33.0 ekbi=734) MEAN CORPUSCULAR HEMOGLOBIN CONC (BEAKER) (test 36.0 GM/DL 32.0-36.0 crsy=416) RED CELL DISTRIBUTION WIDTH (BEAKER) (test 14.1 % 10.3-14.2 bubc=994) PLATELET COUNT (BEAKER) (test hhjx=576) 122 K/CU MM 150-430 MEAN PLATELET VOLUME (BEAKER) (test iqni=680) 8.4 fL 6.5-10.5 NUCLEATED RED BLOOD CELLS (BEAKER) (test 0 /100 WBC 0-0 dosb=679) NEUTROPHILS RELATIVE PERCENT (BEAKER) (test 68 % yygo=111) LYMPHOCYTES RELATIVE PERCENT (BEAKER) (test 19 % nwbb=907) MONOCYTES RELATIVE PERCENT (BEAKER) (test 9 % adbl=260) EOSINOPHILS RELATIVE PERCENT (BEAKER) (test 3 % luae=979) BASOPHILS RELATIVE PERCENT (BEAKER) (test 0 % ngyy=864) NEUTROPHILS ABSOLUTE COUNT (BEAKER) (test 5.19 K/ L 1.80-8.00 ttpl=498) LYMPHOCYTES ABSOLUTE COUNT (BEAKER) (test 1.47 K/ L 1.48-4.50 aorm=576) MONOCYTES ABSOLUTE COUNT (BEAKER) (test 0.70 K/ L 0.00-1.30 pbov=579) EOSINOPHILS ABSOLUTE COUNT (BEAKER) (test 0.21 K/ L 0.00-0.50 nvpr=448) BASOPHILS ABSOLUTE COUNT (BEAKER) (test 0.03 K/ L 0.00-0.20 azgw=940) 0.00[facility] METABOLIC [id number] 05:48:00 Test Item Value Reference Range Comments SODIUM (BEAKER) (test 133 meq/L 136-145 bsha=504) POTASSIUM (BEAKER) (test 4.6 meq/L 3.5-5.1 Specimen slightly qjuh=875) hemolyzed CHLORIDE (BEAKER) (test 101 meq/L 98-107 btxp=857) CO2 (BEAKER) (test 24 meq/L 22-29 hler=757) BLOOD UREA NITROGEN 9 mg/dL 7-21 (BEAKER) (test obqq=474) CREATININE (BEAKER) (test 0.58 mg/dL 0.57-1.25 Specimen slightly uxhm=706) hemolyzed GLUCOSE RANDOM (BEAKER) 89 mg/dL 70-105 (test hkmv=544) CALCIUM (BEAKER) (test 9.4 mg/dL 8.4-10.2 rzmt=383) EGFR (BEAKER) (test 100 mL/min/1.73 sq m ESTIMATED GFR IS NOT gdym=5171) ACCURATE CREATININE CLEARANCE IN PREDICTING GLOMERULAR FILTRATION RATE. ESTIMATED GFR IS NOT APPLICABLE FOR DIALYSIS PATIENTS. URINALYSIS W/ [id number] 06:22:00 Test Item Value Reference Range Comments COLOR (BEAKER) (test qkok=155) Yellow CLARITY (BEAKER) (test gdom=658) Clear SPECIFIC GRAVITY UA (BEAKER) (test pirs=645) 1.006 1.001-1.035 PH UA (BEAKER) (test swtf=893) 7.0 5.0-8.0 PROTEIN UA (BEAKER) (test yvug=197) Negative Negative GLUCOSE UA (BEAKER) (test vtmy=310) Negative Negative KETONES UA (BEAKER) (test ofit=109) Trace Negative BILIRUBIN UA (BEAKER) (test tihf=749) Negative Negative BLOOD UA (BEAKER) (test ebzu=724) Negative Negative NITRITE UA (BEAKER) (test gmdh=482) Negative Negative LEUKOCYTE ESTERASE UA (BEAKER) (test crpq=969) Small Negative UROBILINOGEN UA (BEAKER) (test epip=749) 0.2 mg/dL 0.2-1.0 RBC UA (BEAKER) (test jnjn=289) 1 /HPF WBC UA (BEAKER) (test ulsq=278) 4 /HPF BACTERIA (BEAKER) (test urxi=220) Rare MUCUS (BEAKER) (test wvgx=9926) Rare SQUAMOUS EPITHELIAL (BEAKER) (test budp=982) 1 /HPF HYALINE CASTS (BEAKER) (test oaxg=143) 2 /LPF SOURCE(BEAKER) (test pfwc=5836) Urine, [place] VITAMIN D, [id number] 15:19:00 Test Item Value Reference Range Comments VITAMIN D 25-OH (BEAKER) (test umja=4023) 63.3 ng/mL 13.0-47.8 CBC W/PLT COUNT & AUTO [id number] 08:32:00 Test Item Value Reference Range Comments WHITE BLOOD CELL COUNT (BEAKER) (test eoth=237) 11.2 K/ L 4.0-10.0 RED BLOOD CELL COUNT (BEAKER) (test cbix=309) 3.74 M/ L 4.00-5.00 HEMOGLOBIN (BEAKER) (test wlcw=822) 14.9 GM/DL 12.0-15.0 HEMATOCRIT (BEAKER) (test wkvj=487) 44.0 % 36.0-45.0 MEAN CORPUSCULAR VOLUME (BEAKER) (test barm=465) 118.0 fL 82.0-99.0 MEAN CORPUSCULAR HEMOGLOBIN (BEAKER) (test 39.7 pg 27.0-33.0 rcmk=551) MEAN CORPUSCULAR HEMOGLOBIN CONC (BEAKER) (test 33.8 GM/DL 32.0-36.0 dzjd=602) RED CELL DISTRIBUTION WIDTH (BEAKER) (test 12.8 % 10.3-14.2 tavc=361) PLATELET COUNT (BEAKER) (test afqd=094) 116 K/CU MM 150-430 MEAN PLATELET VOLUME (BEAKER) (test dphr=846) 8.9 fL 6.5-10.5 NUCLEATED RED BLOOD CELLS (BEAKER) (test 0 /100 WBC 0-0 enwq=669) NEUTROPHILS RELATIVE PERCENT (BEAKER) (test 75 % xluw=718) LYMPHOCYTES RELATIVE PERCENT (BEAKER) (test 13 % ogcz=850) MONOCYTES RELATIVE PERCENT (BEAKER) (test 10 % pgvc=735) EOSINOPHILS RELATIVE PERCENT (BEAKER) (test 3 % vdif=280) BASOPHILS RELATIVE PERCENT (BEAKER) (test 1 % aunj=943) NEUTROPHILS ABSOLUTE COUNT (BEAKER) (test 8.37 K/ L 1.80-8.00 gemm=976) LYMPHOCYTES ABSOLUTE COUNT (BEAKER) (test 1.41 K/ L 1.48-4.50 qqrw=070) MONOCYTES ABSOLUTE COUNT (BEAKER) (test 1.09 K/ L 0.00-1.30 tzqb=159) EOSINOPHILS ABSOLUTE COUNT (BEAKER) (test 0.29 K/ L 0.00-0.50 bwna=041) BASOPHILS ABSOLUTE COUNT (BEAKER) (test 0.06 K/ L 0.00-0.20 nayb=214) 0.00BASIC METABOLIC [id number] 05:11:00 Test Item Value Reference Range Comments SODIUM (BEAKER) (test 135 meq/L 136-145 xanu=208) POTASSIUM (BEAKER) (test 4.4 meq/L 3.5-5.1 Specimen slightly nvbj=287) hemolyzed CHLORIDE (BEAKER) (test 98 meq/L 98-107 wpyy=354) CO2 (BEAKER) (test 26 meq/L 22-29 ricd=282) BLOOD UREA NITROGEN 9 mg/dL 7-21 (BEAKER) (test wnox=567) CREATININE (BEAKER) (test 0.60 mg/dL 0.57-1.25 Specimen slightly fyew=077) hemolyzed GLUCOSE RANDOM (BEAKER) 76 mg/dL 70-105 (test weyj=481) CALCIUM (BEAKER) (test 9.2 mg/dL 8.4-10.2 fkql=682) EGFR (BEAKER) (test 96 mL/min/1.73 sq m ESTIMATED GFR IS NOT wtok=4890) ACCURATE CREATININE CLEARANCE IN PREDICTING GLOMERULAR FILTRATION RATE. ESTIMATED GFR IS NOT APPLICABLE FOR DIALYSIS PATIENTS. URINALYSIS W/ [id number] 04:05:00 Test Item Value Reference Range Comments COLOR (BEAKER) (test gxpz=537) Yellow CLARITY (BEAKER) (test abcs=747) Clear SPECIFIC GRAVITY UA (BEAKER) (test yccs=737) 1.007 1.001-1.035 PH UA (BEAKER) (test xotl=020) 7.0 5.0-8.0 PROTEIN UA (BEAKER) (test qvus=558) Negative Negative GLUCOSE UA (BEAKER) (test veal=300) Negative Negative KETONES UA (BEAKER) (test ovdi=279) Trace Negative BILIRUBIN UA (BEAKER) (test aaxh=269) Negative Negative BLOOD UA (BEAKER) (test iexj=782) Moderate Negative NITRITE UA (BEAKER) (test klzp=047) Negative Negative LEUKOCYTE ESTERASE UA (BEAKER) (test pqrl=811) Small Negative UROBILINOGEN UA (BEAKER) (test rqhq=528) 2.0 mg/dL 0.2-1.0 RBC UA (BEAKER) (test ynqs=903) 2 /HPF WBC UA (BEAKER) (test ngzu=954) 5 /HPF BACTERIA (BEAKER) (test olpg=952) Rare MUCUS (BEAKER) (test bsbw=3374) Rare SQUAMOUS EPITHELIAL (BEAKER) (test tnju=713) < /HPF HYALINE CASTS (BEAKER) (test mtys=710) 2 /LPF SOURCE(BEAKER) (test vrnk=3653) Urine, [place]
[2017-05-25] MEDS ORDERED: TETRACAINE HCL 0.5% 2ML OPTH ONE (12:47)
[2017-05-25] MEDS ORDERED: LIDOCAINE 2% MPF 5 ML VIAL ONE ×2 (12:47→13:23)
[2017-05-25] MEDS ORDERED: BUPIVACAINE 0.25% PF 10 ML VIAL ONE (12:47)
[2017-05-25] MEDS ORDERED: CYCLOPENTOLATE 1% OPTH 2 ML ONE (12:47)
[2017-05-25] MEDS ORDERED: NA CHLORIDE 0.9% 500 ML ONE (12:48)
[2017-05-25] MEDS ORDERED: PHENYLEPHRINE 10% OPTH 5ML ONE (12:48)
[2017-05-25] MEDS ORDERED: CYCLOPENTOLATE 1% OPTH 2 ML OPTH ONE ×2 (13:03→13:08)
[2017-05-25] MEDS ORDERED: PHENYLEPHRINE 10% OPTH 5ML OPTH ONE ×2 (13:03→13:08)
[2017-05-25] MEDS ORDERED: PROPOFOL 200 MG/20 ML VIAL IV ONE (13:23)
--- NOTE | 2017-05-25 14:24 | P.BOP ---
Preoperative diagnosis: Nuclear sclerotic cataract OS Postoperative diagnosis: Same Primary procedure: Phacoemulsification with IOL OS Estimated blood loss: None Anesthesia: Local (Subtenon's infusion with anesthesia for cataract surgery) Complications: None Implants: [id number] +21.5 Transferred to: Other (Day surgery) Condition: Good
[2017-05-25 14:37] VITALS: BP 171/68; TEMP 98.1; O2SAT 98
--- NOTE | 2017-05-26 00:24 | OP ---
Date of Procedure: 05/25/2017 Surgeon: Nhung Pearson MD Anesthesiologist: 1. Lucio Benoit CRNA. 2. Josafat Malloy M.D. Preoperative Diagnosis: Nuclear sclerotic cataract, OS (left eye). Operation Performed: Phacoemulsification with intraocular lens implant, OS (left eye). Anesthesia: Per cataract surgery. Complications: None. Description Of Procedure: In day surgery, the patient was prepped with Betadine and draped. A conju nctival incision was made in the inferior nasal quadrant with Vero scissors. A sub-Tenon block c onsisting of a 1:1 mixture of 2% Xylocaine and 0.25% bupivacaine was placed through the conjunctival incision with a blunt cannula. A Honan balloon was placed over the eye and the patient was transferr ed to the operating room. In the operating room the patient was prepped and draped in the usual sterile fashion for ophthalmic surgery. A lid speculum was placed in the OS. Two paracentesis sites were made superiorly and infer iorly in the limbal cornea. Viscoat was placed in the anterior chamber and a crescent blade was used to make a corneal groove and tunnel, and a keratome was used to enter the anterior chamber. Provisc was placed in the anterior chamber and a 360 degree capsulotomy was performed with a cystitome. The lens was hydrodissected with BSS and rotated freely. The lens was removed with a stop and chop tech nique. A 12.44 phaco CDE was used to remove the lens. Residual cortex was removed with the irrigati on and aspiration. Provisc was placed in the capsular bag. A SN60WF +21.5 diopter lens was placed in the capsular bag without complications. Irrigation and aspiration was used to remove residual vis coelastic. The paracentesis sites were hydrated with BSS. The wound and paracentesis sites were ins pected and found to be watertight. Vigamox 0.07 cc was placed intracamerally at the end of the proce dure. The eye was irrigated with balanced salt solution. The eye was patched with a soft cotton pat ch and Sotelo metal shield. The patient was returned to day surgery in good condition. Comments: A 1:5000 epinephrine was placed in the anterior chamber prior to Viscoat. Discharge Instructions: Ms. Velasquez is discharged home in good condition and is to follow up with Dr Erica Pearson in the morning. KM/ANNAMARIE Voice ID: [id number] Report ID: [id number]
== END 2017-05-25 15:00 | disposition home or self-care (01) ==
LOC: OR 11:10
PROVIDERS: ATTEND Ophthalmology Retina Specialist
PROC: 08RK3JZ Replacement of Left Lens with Synthetic Substitute, Percutaneous Approach (ICD-10-PCS; principal; 2017-05-25 11:15)
DX: H25.12 Age-related nuclear cataract, left eye (principal); H04.123 Dry eye syndrome of bilateral lacrimal glands; H35.3130 Nonexudative age-related macular degeneration, bilateral, stage unspecified; H43.813 Vitreous degeneration, bilateral; E78.5 Hyperlipidemia, unspecified; E07.9 Disorder of thyroid, unspecified; K21.9 Gastro-esophageal reflux disease without esophagitis; M10.9 Gout, unspecified; Z86.73 Personal history of transient ischemic attack (TIA), and cerebral infarction without residual deficits; Z88.3 Allergy status to other anti-infective agents
CPT/HCPCS: 66984; J0171; V2630

== ENCOUNTER 2018-10-26 09:15 | Emergency (ER) | payer OTHER ==
--- OUTSIDE RECORDS SUMMARY | 2018-10-26 09:18 | XMS REPORT | Clinical Summary ---
:[address] [facility] Address [address] [place] [address] Care Team Providers Name Role Phone Sharpmarcelle Primary Care Provider Allergies No Known Allergies Medications Medication Sig Dispensed Refills Start Date End Date Status colchicine (COLCRYS) Take 1.2 mg by 0 Active 0.6 mg tablet mouth daily. docusate sodium Take 100 mg by 0 Active (COLACE) 100 MG capsule mouth 2 (two) times daily. metoprolol (LOPRESSOR) Take 50 mg by 0 Active 50 MG tablet mouth 2 (two) times daily. levothyroxine Take 100 mcg by 0 Active (SYNTHROID, LEVOTHROID) mouth Every 100 MCG tablet morning on an empty stomach. famotidine (PEPCID) 20 Take 1 tablet (20 60 tablet 3 05/09/2016 Active MG tablet mg total) by mouth 2 (two) times daily. traMADol (ULTRAM) 50 mg Take 2 tablets 30 tablet 0 05/09/2016 Active tablet (100 mg total) by mouth every 6 (six) hours as needed for Pain. Max Daily Amount: 400 mg Active Problems Problem Noted Date Vertebral compression fracture 08/07/2016 Spinal cord compression 08/07/2016 Gout 08/07/2016 Thrombocytopenia 08/07/2016 Physical deconditioning 05/05/2016 Acquired hypothyroidism 05/05/2016 Essential hypertension 05/05/2016 Compression fracture 05/03/2016 Social History Tobacco Use Types Packs/Day Years Used Date Never Smoker Alcohol Use Drinks/Week oz/Week Comments Yes 5 Glasses of wine 3.0 Sex Assigned at Date Recorded Not on file Job Start Date Occupation Industry Not on file Not on file Not on file Travel History Travel Start Travel End No recent travel history available. Last Filed Vital Signs Not on file Plan of Treatment Not on file Implants Implanted Type Area Deputy Commissioner Device Shelf Model / Serial / Identifier Expiration Lot Date Bone Chip Canc 1.7-10mm 30ml [id number] - [id number] Bone N/A: MUSCULOSKELETAL 03/27/2019 [id number] / Implanted: Qty: 1 on 08/11/2016 by Chase Renae MD Spine TRANSPLANT FND [id number] / Lumbar Tiss Live Puty Dbm Optium 10cc Tput10 - [id number] Bone N/A: LIFENET:LIFENET 01/28/2019 TPUT10 / Implanted: Qty: 1 on 08/11/2016 by Chase Renae MD Spine TRANSPLANT SRV / Lumbar [id number] Tiss Live Puty Dbm Optium 10cc Tput10 - [id number] Bone N/A: LIFENET:LIFENET 04/04/2019 TPUT10 / Implanted: Qty: 1 on 08/11/2016 by Chase Renae MD Spine TRANSPLANT SRV / Lumbar [id number] Matrix Floseal Hemo W/O Ndl 10 [id number] - [id number] Cement/F N/A: VINES: BIOSCI 12/23/2017 [id number] / Implanted: Qty: 1 on 08/11/2016 by Chase Renae MD iller/Ad Spine / hesive Lumbar [id number] Cement Ktmx Kyphx Hv-R C01b - [id number] Cement/F N/A: MEDTRONIC:SPINAL C01B / Implanted: Qty: 1 on 08/11/2016 by Chase Renae MD iller/Ad Spine BIOLOGICS / hesive Lumbar [id number] Cement Bone Kyphx Hv-R C01a - [id number] Cement/F N/A: MEDTRONIC:SPINAL C01A / Implanted: Qty: 1 on 08/11/2016 by Chase Renae MD iller/Ad Spine BIOLOGICS / hesive Lumbar [id number] Elia Harper Iii [id number] - [id number] Spine N/A: LUDIN:LUDIN [id number] / Implanted: Qty: 8 on 08/11/2016 by Chase Renae MD Spine SPINE / Lumbar Scr Polyaxial 5.5x45mm [id number] - [id number] Spine N/A: LUDIN:LUDIN [id number] / Implanted: Qty: 8 on 08/11/2016 by Chase Renae MD Spine SPINE / Lumbar [id number] Artem Harper 3 Titanium 480 [id number] - [id number] Spine N/A: LUDIN:LUDIN [id number] / Implanted: Qty: 2 on 08/11/2016 by Chase Renae MD Spine SPINE / Lumbar JBL Results Not on fileafter 10/25/2017 Insurance Payer Benefit Plan / Group Subscriber ID Type Phone Address MEDICARE MEDICARE A B xxxxxxxxxx Medicare FOR LIFE xxxxxxxxx Other Govt (, [place], [facility], etc.) (Home) [place] [address] Advance Directives For more information, please contact:[address] [phone] Code Status Date Activated Date Inactivated Comments Full Code 08/07/2016 5:39 AM 08/19/2016 2:48 PM This code status was determined by: Patient Full Code 05/03/2016 2:45 AM 05/09/2016 12:27 PM This code status was determined by: Patient
--- OUTSIDE RECORDS SUMMARY | 2018-10-26 09:20 | XMS REPORT ---
:1935 [facility] Address [address] [place] [address] Dr. Constantino [address] [place] [id number] Care Team Providers Name Role Phone SARA CRAWFORD Unavailable Unavailable MANFRED SANDS Unavailable Unavailable Problems This patient has no known problems. Allergies, Adverse Reactions, Alerts This patient has no known allergies or adverse reactions. Medications This patient has no known medications. Results Test Description Test Time Test Comments Text Results Atomic Results Result Comments BLOOD CULTURE 2016-08-21 11:00:00 Test Item Value Reference Range Comments CULTURE (BEAKER) (test jccl=1549) No growth in 5 days BLOOD [id number] 11:00:00 Test Item Value Reference Range Comments CULTURE (BEAKER) (test bssa=1918) No growth in 5 days URINE [id number] 09:13:00 Test Item Value Reference Range Comments CULTURE (BEAKER) (test ENTEROCOCCUS SPECIES >100,000 col/mL jtgk=0015) Enterococcus species Ampicillin (test code=26) Ciprofloxacin (test code=7) Clindamycin (test code=10) Daptomycin (test code=59) Erythromycin (test code=4) Gentamicin (test code=18) Gentamicin High Level Synergy (test rkjo=192) Levofloxacin (test code=22) Linezolid (test code=40) Moxifloxacin (test code=36) Nitrofurantoin (test code=23) Oxacillin (test code=14) Rifampin (test code=43) Streptomycin High Level Synergy (test whfy=042) Tetracycline (test code=2) Tigecycline (test qlvy=771) Trimethoprim + Sulfamethoxazole (test code=47) Vancomycin (test code=13) URINALYSIS W/ [id number] 17:26:00 Test Item Value Reference Range Comments COLOR (BEAKER) (test zqkz=400) Dark Yellow CLARITY (BEAKER) (test ugtc=227) Hazy SPECIFIC GRAVITY UA (BEAKER) (test ntik=728) 1.026 1.001-1.035 PH UA (BEAKER) (test wkjg=283) 6.0 5.0-8.0 PROTEIN UA (BEAKER) (test gido=148) 30 mg/dL Negative GLUCOSE UA (BEAKER) (test sdzn=618) Negative Negative KETONES UA (BEAKER) (test qgqx=321) 10 mg/dL Negative BILIRUBIN UA (BEAKER) (test yqxy=849) Negative Negative BLOOD UA (BEAKER) (test rcxi=115) Negative Negative NITRITE UA (BEAKER) (test cxlo=026) Negative Negative LEUKOCYTE ESTERASE UA (BEAKER) (test seed=545) Large Negative UROBILINOGEN UA (BEAKER) (test gbap=748) 2.0 mg/dL 0.2-1.0 RBC UA (BEAKER) (test xtuw=756) 2 /HPF WBC UA (BEAKER) (test nsdd=443) 36 /HPF MUCUS (BEAKER) (test sbtf=0392) Occasional SQUAMOUS EPITHELIAL (BEAKER) (test fyni=028) 12 /HPF SOURCE(BEAKER) (test lwyg=3301) Urine, Voided HEPATIC FUNCTION [id number] 05:45:00 Test Item Value Reference Range Comments TOTAL PROTEIN (BEAKER) (test rtmr=232) 5.5 gm/dL 6.0-8.3 ALBUMIN (BEAKER) (test bzvh=7646) 2.5 g/dL 3.5-5.0 BILIRUBIN TOTAL (BEAKER) (test fpri=137) 0.6 mg/dL 0.2-1.2 BILIRUBIN DIRECT (BEAKER) (test tdjx=918) 0.3 mg/dL 0.1-0.5 ALKALINE PHOSPHATASE (BEAKER) (test yjcy=631) 141 U/L 40-150 AST (SGOT) (BEAKER) (test bxaq=802) 24 U/L 5-34 ALT (SGPT) (BEAKER) (test dbrx=025) 13 U/L 6-55 BASIC METABOLIC [id number] 05:45:00 Test Item Value Reference Range Comments SODIUM (BEAKER) (test 133 meq/L 136-145 lgut=463) POTASSIUM (BEAKER) (test 3.4 meq/L 3.5-5.1 xvnx=756) CHLORIDE (BEAKER) (test 105 meq/L 98-107 zxyd=088) CO2 (BEAKER) (test 21 meq/L 22-29 yltz=827) BLOOD UREA NITROGEN 9 mg/dL 7-21 (BEAKER) (test ewkk=869) CREATININE (BEAKER) (test 0.49 mg/dL 0.57-1.25 fazj=457) GLUCOSE RANDOM (BEAKER) 82 mg/dL 70-105 (test otif=012) CALCIUM (BEAKER) (test 8.0 mg/dL 8.4-10.2 txdd=837) EGFR (BEAKER) (test 122 mL/min/1.73 sq m ESTIMATED GFR IS NOT misr=7103) ACCURATE CREATININE CLEARANCE IN PREDICTING GLOMERULAR FILTRATION RATE. ESTIMATED GFR IS NOT APPLICABLE FOR DIALYSIS PATIENTS. CBC W/PLT COUNT & AUTO [id number] 05:22:00 Test Item Value Reference Range Comments WHITE BLOOD CELL COUNT (BEAKER) (test lnek=906) 7.0 K/ L 4.0-10.0 RED BLOOD CELL COUNT (BEAKER) (test cbxv=558) 2.59 M/ L 4.00-5.00 HEMOGLOBIN (BEAKER) (test gxdz=589) 9.6 GM/DL 12.0-15.0 HEMATOCRIT (BEAKER) (test qjtl=601) 27.4 % 36.0-45.0 MEAN CORPUSCULAR VOLUME (BEAKER) (test adjc=220) 106.0 fL 82.0-99.0 MEAN CORPUSCULAR HEMOGLOBIN (BEAKER) (test 37.1 pg 27.0-33.0 fopz=611) MEAN CORPUSCULAR HEMOGLOBIN CONC (BEAKER) (test 35.1 GM/DL 32.0-36.0 usip=536) RED CELL DISTRIBUTION WIDTH (BEAKER) (test 12.9 % 10.3-14.2 mnpa=365) PLATELET COUNT (BEAKER) (test buse=407) 108 K/CU MM 150-430 MEAN PLATELET VOLUME (BEAKER) (test tgin=484) 8.5 fL 6.5-10.5 NUCLEATED RED BLOOD CELLS (BEAKER) (test 0 /100 WBC 0-0 epgk=245) NEUTROPHILS RELATIVE PERCENT (BEAKER) (test 62 % ekdg=238) LYMPHOCYTES RELATIVE PERCENT (BEAKER) (test 25 % fzed=422) MONOCYTES RELATIVE PERCENT (BEAKER) (test 10 % zsbw=434) EOSINOPHILS RELATIVE PERCENT (BEAKER) (test 4 % vlso=208) BASOPHILS RELATIVE PERCENT (BEAKER) (test 0 % ksyb=035) NEUTROPHILS ABSOLUTE COUNT (BEAKER) (test 4.32 K/ L 1.80-8.00 deez=598) LYMPHOCYTES ABSOLUTE COUNT (BEAKER) (test 1.75 K/ L 1.48-4.50 smwm=710) MONOCYTES ABSOLUTE COUNT (BEAKER) (test 0.69 K/ L 0.00-1.30 prfi=570) EOSINOPHILS ABSOLUTE COUNT (BEAKER) (test 0.26 K/ L 0.00-0.50 kqbj=722) BASOPHILS ABSOLUTE COUNT (BEAKER) (test 0.02 K/ L 0.00-0.20 ummk=822) 0.00HEPATIC FUNCTION [id number] 13:28:00 Test Item Value Reference Range Comments TOTAL PROTEIN (BEAKER) (test heis=068) 5.9 gm/dL 6.0-8.3 ALBUMIN (BEAKER) (test wlug=1464) 2.8 g/dL 3.5-5.0 BILIRUBIN TOTAL (BEAKER) (test zeyn=992) 0.6 mg/dL 0.2-1.2 BILIRUBIN DIRECT (BEAKER) (test xokd=028) 0.3 mg/dL 0.1-0.5 ALKALINE PHOSPHATASE (BEAKER) (test uzbd=519) 160 U/L 40-150 AST (SGOT) (BEAKER) (test kmua=666) 29 U/L 5-34 ALT (SGPT) (BEAKER) (test ujkb=875) 13 U/L 6-55 BASIC METABOLIC [id number] 13:28:00 Test Item Value Reference Range Comments SODIUM (BEAKER) (test 136 meq/L 136-145 ccol=709) POTASSIUM (BEAKER) (test 3.3 meq/L 3.5-5.1 pazd=087) CHLORIDE (BEAKER) (test 105 meq/L 98-107 uzkl=540) CO2 (BEAKER) (test 24 meq/L 22-29 ghqt=095) BLOOD UREA NITROGEN 8 mg/dL 7-21 (BEAKER) (test wtgj=419) CREATININE (BEAKER) (test 0.47 mg/dL 0.57-1.25 hgks=986) GLUCOSE RANDOM (BEAKER) 86 mg/dL 70-105 (test dqdg=847) CALCIUM (BEAKER) (test 8.6 mg/dL 8.4-10.2 johk=117) EGFR (BEAKER) (test 128 mL/min/1.73 sq m ESTIMATED GFR IS NOT beqw=1539) ACCURATE CREATININE CLEARANCE IN PREDICTING GLOMERULAR FILTRATION RATE. ESTIMATED GFR IS NOT APPLICABLE FOR DIALYSIS PATIENTS. CBC W/PLT COUNT & AUTO [id number] 06:36:00 Test Item Value Reference Range Comments WHITE BLOOD CELL COUNT (BEAKER) (test flnd=686) 7.4 K/ L 4.0-10.0 RED BLOOD CELL COUNT (BEAKER) (test vkws=610) 2.47 M/ L 4.00-5.00 HEMOGLOBIN (BEAKER) (test ljyz=296) 10.4 GM/DL 12.0-15.0 HEMATOCRIT (BEAKER) (test hdpr=569) 26.3 % 36.0-45.0 MEAN CORPUSCULAR VOLUME (BEAKER) (test ksln=433) 107.0 fL 82.0-99.0 MEAN CORPUSCULAR HEMOGLOBIN (BEAKER) (test 42.0 pg 27.0-33.0 sbpi=482) MEAN CORPUSCULAR HEMOGLOBIN CONC (BEAKER) (test 39.4 GM/DL 32.0-36.0 fudf=593) RED CELL DISTRIBUTION WIDTH (BEAKER) (test 13.4 % 10.3-14.2 czsi=334) PLATELET COUNT (BEAKER) (test mzwe=971) 102 K/CU MM 150-430 MEAN PLATELET VOLUME (BEAKER) (test fsrn=706) 8.6 fL 6.5-10.5 NUCLEATED RED BLOOD CELLS (BEAKER) (test 0 /100 WBC 0-0 csgr=186) NEUTROPHILS RELATIVE PERCENT (BEAKER) (test 61 % xzvj=172) LYMPHOCYTES RELATIVE PERCENT (BEAKER) (test 24 % uvvr=187) MONOCYTES RELATIVE PERCENT (BEAKER) (test 13 % odkh=349) EOSINOPHILS RELATIVE PERCENT (BEAKER) (test 2 % dnve=404) BASOPHILS RELATIVE PERCENT (BEAKER) (test 0 % ccbw=137) NEUTROPHILS ABSOLUTE COUNT (BEAKER) (test 4.50 K/ L 1.80-8.00 kmna=766) LYMPHOCYTES ABSOLUTE COUNT (BEAKER) (test 1.80 K/ L 1.48-4.50 ufzv=306) MONOCYTES ABSOLUTE COUNT (BEAKER) (test 0.98 K/ L 0.00-1.30 wyku=768) EOSINOPHILS ABSOLUTE COUNT (BEAKER) (test 0.12 K/ L 0.00-0.50 gxhd=094) BASOPHILS ABSOLUTE COUNT (BEAKER) (test 0.02 K/ L 0.00-0.20 wppo=836) 0.00URINE [id number] 10:37:00 Test Item Value Reference Range Comments CULTURE (BEAKER) (test ESCHERICHIA COLI 40-49,000 col/mL ysub=2164) Escherichia coli Amikacin (test code=1) Ampicillin + Sulbactam (test code=6) Aztreonam (test code=32) Cefazolin (test code=9) Cefepime (test code=51) Cefoxitin (test code=68) Ceftazidime (test code=27) Ceftriaxone (test code=52) Ertapenem (test code=38) Gentamicin (test code=18) Levofloxacin (test code=22) Meropenem (test code=34) Nitrofurantoin (test code=23) Piperacillin + Tazobactam (test code=29) Tetracycline (test code=2) Tigecycline (test syva=764) Tobramycin (test code=25) Trimethoprim + Sulfamethoxazole (test code=47) ALPHA FETOPROTEIN (AFP), TUMOR [id number] 05:15:00 Test Item Value Reference Range Comments ALPHA-FETOPROTEIN (BEAKER) (test fffi=8820) 4.7 ng/mL <10.0 Effective 01/10/2014: Reference Range ChangeNew: <10.0 Previous: 0.0- 8.0CBC W/PLT COUNT & AUTO [id number] 05:11:00 Test Item Value Reference Range Comments WHITE BLOOD CELL COUNT (BEAKER) (test yayx=241) 6.6 K/ L 4.0-10.0 RED BLOOD CELL COUNT (BEAKER) (test pcgx=740) 2.81 M/ L 4.00-5.00 HEMOGLOBIN (BEAKER) (test zmqc=184) 10.4 GM/DL 12.0-15.0 HEMATOCRIT (BEAKER) (test ezmi=704) 30.0 % 36.0-45.0 MEAN CORPUSCULAR VOLUME (BEAKER) (test thkr=773) 107.0 fL 82.0-99.0 MEAN CORPUSCULAR HEMOGLOBIN (BEAKER) (test 36.9 pg 27.0-33.0 ugil=610) MEAN CORPUSCULAR HEMOGLOBIN CONC (BEAKER) (test 34.6 GM/DL 32.0-36.0 hdtb=625) RED CELL DISTRIBUTION WIDTH (BEAKER) (test 14.7 % 10.3-14.2 fgon=592) PLATELET COUNT (BEAKER) (test wdzi=116) 97 K/CU MM 150-430 MEAN PLATELET VOLUME (BEAKER) (test tprp=042) 8.4 fL 6.5-10.5 NUCLEATED RED BLOOD CELLS (BEAKER) (test 0 /100 WBC 0-0 rjum=445) NEUTROPHILS RELATIVE PERCENT (BEAKER) (test 64 % bppn=428) LYMPHOCYTES RELATIVE PERCENT (BEAKER) (test 21 % ubjf=979) MONOCYTES RELATIVE PERCENT (BEAKER) (test 13 % ckcy=092) EOSINOPHILS RELATIVE PERCENT (BEAKER) (test 2 % allr=686) BASOPHILS RELATIVE PERCENT (BEAKER) (test 0 % vrcx=561) NEUTROPHILS ABSOLUTE COUNT (BEAKER) (test 4.20 K/ L 1.80-8.00 jbcu=278) LYMPHOCYTES ABSOLUTE COUNT (BEAKER) (test 1.34 K/ L 1.48-4.50 pvsy=046) MONOCYTES ABSOLUTE COUNT (BEAKER) (test bjse=971) 0.83 K/ L 0.00-1.30 EOSINOPHILS ABSOLUTE COUNT (BEAKER) (test 0.14 K/ L 0.00-0.50 nihs=541) BASOPHILS ABSOLUTE COUNT (BEAKER) (test eyql=309) 0.03 K/ L 0.00-0.20 0.00HEPATIC FUNCTION [id number] 05:08:00 Test Item Value Reference Range Comments TOTAL PROTEIN (BEAKER) (test cjam=484) 5.6 gm/dL 6.0-8.3 ALBUMIN (BEAKER) (test itgl=6757) 2.8 g/dL 3.5-5.0 BILIRUBIN TOTAL (BEAKER) (test bscz=029) 0.8 mg/dL 0.2-1.2 BILIRUBIN DIRECT (BEAKER) (test hsjp=089) 0.4 mg/dL 0.1-0.5 ALKALINE PHOSPHATASE (BEAKER) (test vicu=560) 131 U/L 40-150 AST (SGOT) (BEAKER) (test cucw=542) 29 U/L 5-34 ALT (SGPT) (BEAKER) (test hcml=301) 10 U/L 6-55 BASIC METABOLIC [id number] 05:08:00 Test Item Value Reference Range Comments SODIUM (BEAKER) (test 136 meq/L 136-145 oenz=570) POTASSIUM (BEAKER) (test 3.3 meq/L 3.5-5.1 uimz=779) CHLORIDE (BEAKER) (test 107 meq/L 98-107 zdwe=844) CO2 (BEAKER) (test 21 meq/L 22-29 inpv=494) BLOOD UREA NITROGEN 7 mg/dL 7-21 (BEAKER) (test mlfs=077) CREATININE (BEAKER) (test 0.52 mg/dL 0.57-1.25 tjsb=190) GLUCOSE RANDOM (BEAKER) 89 mg/dL 70-105 (test llns=855) CALCIUM (BEAKER) (test 8.1 mg/dL 8.4-10.2 ecqb=435) EGFR (BEAKER) (test 113 mL/min/1.73 sq m ESTIMATED GFR IS NOT irwb=9053) ACCURATE CREATININE CLEARANCE IN PREDICTING GLOMERULAR FILTRATION RATE. ESTIMATED GFR IS NOT APPLICABLE FOR DIALYSIS PATIENTS. CBC W/PLT COUNT & AUTO [id number] 07:18:00 Test Item Value Reference Range Comments WHITE BLOOD CELL COUNT (BEAKER) (test crwg=028) 4.7 K/ L 4.0-10.0 RED BLOOD CELL COUNT (BEAKER) (test wmas=315) 2.84 M/ L 4.00-5.00 HEMOGLOBIN (BEAKER) (test mgju=639) 10.3 GM/DL 12.0-15.0 HEMATOCRIT (BEAKER) (test tjyt=138) 30.5 % 36.0-45.0 MEAN CORPUSCULAR VOLUME (BEAKER) (test nbhh=299) 108.0 fL 82.0-99.0 MEAN CORPUSCULAR HEMOGLOBIN (BEAKER) (test 36.5 pg 27.0-33.0 uesz=530) MEAN CORPUSCULAR HEMOGLOBIN CONC (BEAKER) (test 33.9 GM/DL 32.0-36.0 xqqr=297) RED CELL DISTRIBUTION WIDTH (BEAKER) (test 13.1 % 10.3-14.2 urww=270) PLATELET COUNT (BEAKER) (test rtuz=449) 112 K/CU MM 150-430 MEAN PLATELET VOLUME (BEAKER) (test lzra=774) 7.7 fL 6.5-10.5 NUCLEATED RED BLOOD CELLS (BEAKER) (test 0 /100 WBC 0-0 lnks=803) NEUTROPHILS RELATIVE PERCENT (BEAKER) (test 61 % gkha=120) LYMPHOCYTES RELATIVE PERCENT (BEAKER) (test 24 % jelq=063) MONOCYTES RELATIVE PERCENT (BEAKER) (test 13 % rwtj=003) EOSINOPHILS RELATIVE PERCENT (BEAKER) (test 1 % sxzr=882) BASOPHILS RELATIVE PERCENT (BEAKER) (test 1 % xgeq=463) NEUTROPHILS ABSOLUTE COUNT (BEAKER) (test 2.89 K/ L 1.80-8.00 svoo=856) LYMPHOCYTES ABSOLUTE COUNT (BEAKER) (test 1.15 K/ L 1.48-4.50 iips=142) MONOCYTES ABSOLUTE COUNT (BEAKER) (test 0.62 K/ L 0.00-1.30 bwox=778) EOSINOPHILS ABSOLUTE COUNT (BEAKER) (test 0.06 K/ L 0.00-0.50 ptfm=729) BASOPHILS ABSOLUTE COUNT (BEAKER) (test 0.03 K/ L 0.00-0.20 iovn=139) 0.00VITAMIN D, [id number] 07:07:00 Test Item Value Reference Range Comments VITAMIN D 25-OH (BEAKER) (test wmyr=2772) 36.0 ng/mL 13.0-47.8 BASIC METABOLIC [id number] 04:51:00 Test Item Value Reference Range Comments SODIUM (BEAKER) (test 137 meq/L 136-145 jhbi=058) POTASSIUM (BEAKER) (test 3.9 meq/L 3.5-5.1 bnyh=161) CHLORIDE (BEAKER) (test 108 meq/L 98-107 rfez=553) CO2 (BEAKER) (test 23 meq/L 22-29 fqzk=014) BLOOD UREA NITROGEN 7 mg/dL 7-21 (BEAKER) (test sszq=949) CREATININE (BEAKER) (test 0.54 mg/dL 0.57-1.25 gqsc=779) GLUCOSE RANDOM (BEAKER) 87 mg/dL 70-105 (test qvjr=890) CALCIUM (BEAKER) (test 8.0 mg/dL 8.4-10.2 ypkt=376) EGFR (BEAKER) (test 109 mL/min/1.73 sq m ESTIMATED GFR IS NOT fkqp=7808) ACCURATE CREATININE CLEARANCE IN PREDICTING GLOMERULAR FILTRATION RATE. ESTIMATED GFR IS NOT APPLICABLE FOR DIALYSIS PATIENTS. BASIC METABOLIC [id number] 14:20:00 Test Item Value Reference Range Comments SODIUM (BEAKER) (test 137 meq/L 136-145 lfmd=942) POTASSIUM (BEAKER) (test 3.4 meq/L 3.5-5.1 risd=018) CHLORIDE (BEAKER) (test 106 meq/L 98-107 dvdo=985) CO2 (BEAKER) (test 21 meq/L 22-29 cpmi=509) BLOOD UREA NITROGEN 7 mg/dL 7-21 (BEAKER) (test pihd=790) CREATININE (BEAKER) (test 0.61 mg/dL 0.57-1.25 hcmg=431) GLUCOSE RANDOM (BEAKER) 158 mg/dL 70-105 (test khxb=267) CALCIUM (BEAKER) (test 8.0 mg/dL 8.4-10.2 glrg=003) EGFR (BEAKER) (test 94 mL/min/1.73 sq m ESTIMATED GFR IS NOT fakp=4972) ACCURATE CREATININE CLEARANCE IN PREDICTING GLOMERULAR FILTRATION RATE. ESTIMATED GFR IS NOT APPLICABLE FOR DIALYSIS PATIENTS. URINALYSIS W/ [id number] 14:18:00 Test Item Value Reference Range Comments COLOR (BEAKER) (test qhta=250) Yellow CLARITY (BEAKER) (test mzrt=382) Cloudy SPECIFIC GRAVITY UA (BEAKER) (test risr=710) 1.015 1.001-1.035 PH UA (BEAKER) (test tshl=282) 5.5 5.0-8.0 PROTEIN UA (BEAKER) (test fwnu=988) 20 mg/dL Negative GLUCOSE UA (BEAKER) (test hfio=363) Negative Negative KETONES UA (BEAKER) (test qxqh=164) 40 mg/dL Negative BILIRUBIN UA (BEAKER) (test took=667) Negative Negative BLOOD UA (BEAKER) (test eggn=939) Moderate Negative NITRITE UA (BEAKER) (test jgrl=627) Negative Negative LEUKOCYTE ESTERASE UA (BEAKER) (test bgcx=020) Large Negative UROBILINOGEN UA (BEAKER) (test pokc=756) 0.2 mg/dL 0.2-1.0 RBC UA (BEAKER) (test qnor=370) 23 /HPF WBC UA (BEAKER) (test mfgt=963) > /HPF BACTERIA (BEAKER) (test shds=744) Many MUCUS (BEAKER) (test piaf=1797) Few SQUAMOUS EPITHELIAL (BEAKER) (test qnfk=352) 1 /HPF HYALINE CASTS (BEAKER) (test airy=492) 10 /LPF SOURCE(BEAKER) (test oisp=4468) Urine, [place] CBC W/PLT COUNT & AUTO [id number] 14:16:00 Test Item Value Reference Range Comments WHITE BLOOD CELL COUNT (BEAKER) (test iuhl=350) 3.8 K/ L 4.0-10.0 RED BLOOD CELL COUNT (BEAKER) (test xzit=065) 3.16 M/ L 4.00-5.00 HEMOGLOBIN (BEAKER) (test opkj=193) 11.3 GM/DL 12.0-15.0 HEMATOCRIT (BEAKER) (test amyf=558) 33.6 % 36.0-45.0 MEAN CORPUSCULAR VOLUME (BEAKER) (test rtga=020) 106.0 fL 82.0-99.0 MEAN CORPUSCULAR HEMOGLOBIN (BEAKER) (test 35.8 pg 27.0-33.0 dipf=852) MEAN CORPUSCULAR HEMOGLOBIN CONC (BEAKER) (test 33.7 GM/DL 32.0-36.0 prym=361) RED CELL DISTRIBUTION WIDTH (BEAKER) (test 14.4 % 10.3-14.2 cljz=286) PLATELET COUNT (BEAKER) (test iebm=545) 100 K/CU MM 150-430 MEAN PLATELET VOLUME (BEAKER) (test yuao=158) 7.7 fL 6.5-10.5 NUCLEATED RED BLOOD CELLS (BEAKER) (test 0 /100 WBC 0-0 nqqx=390) NEUTROPHILS RELATIVE PERCENT (BEAKER) (test 84 % flmw=207) LYMPHOCYTES RELATIVE PERCENT (BEAKER) (test 12 % zuzo=632) MONOCYTES RELATIVE PERCENT (BEAKER) (test 3 % ikmk=075) EOSINOPHILS RELATIVE PERCENT (BEAKER) (test 1 % ohyq=505) BASOPHILS RELATIVE PERCENT (BEAKER) (test 0 % xtlw=819) NEUTROPHILS ABSOLUTE COUNT (BEAKER) (test 3.16 K/ L 1.80-8.00 suvj=363) LYMPHOCYTES ABSOLUTE COUNT (BEAKER) (test 0.46 K/ L 1.48-4.50 hgss=830) MONOCYTES ABSOLUTE COUNT (BEAKER) (test 0.11 K/ L 0.00-1.30 dyms=983) EOSINOPHILS ABSOLUTE COUNT (BEAKER) (test 0.02 K/ L 0.00-0.50 pobt=274) BASOPHILS ABSOLUTE COUNT (BEAKER) (test 0.00 K/ L 0.00-0.20 bpkw=454) 0.00IMMUNOFIXATION ELECTROPHORESIS (MARCO)[id number] 14:13:00 Test Item Value Reference Range Comments IMMUNOGLOBULIN G (IGG) 1073 mg/dL 751-1560 (BEAKER) (test edac=282) IMMUNOGLOBULIN A (IGA) 604 mg/dL 82-453 (BEAKER) (test hvdn=046) IMMUNOGLOBULIN M (IGM) 152 mg/dL 46-304 (BEAKER) (test tlft=333) SERUM MARCO ID (BEAKER) (test IgA-kappa, monoclonal; aegc=3740) IgG-lambda monoclonal (Note: monoclonal proteins are small in concentration; majority of immunoglobulin present is polyclonal in nature.) [id number] (BEAKER) Joseline Alvarado MD (test avty=5066) (electronic signature) PROTEIN ELECTROPHORESIS, [id number] 13:57:00 Test Item Value Reference Range Comments ALBUMIN FRACTION (BEAKER) 2.7 g/dL 3.5-5.5 (test yulo=360) ALPHA 1 FRACTION (BEAKER) 0.3 g/dL 0.2-0.4 (test gchf=916) ALPHA 2 FRACTION (BEAKER) 0.6 g/dL 0.5-0.9 (test eaew=921) BETA FRACTION (BEAKER) (test 0.8 g/dL 0.6-1.1 ersl=337) GAMMA GLOBULIN FRACTION 1.3 g/dL 0.7-1.7 (BEAKER) (test hnxo=277) INTERPRETATION-119 (BEAKER) Decreased albumin and slight (test awls=0619) beta-gamma bridging, consistent with hepatic dysfunction. Small restrictions present in gamma region; serum MARCO ordered for further characterization. [id number] Joseline Alvarado MD (BEAKER) (test lrht=2606) (electronic signature) PROTEIN TOTAL SERUM, SPEP 5.6 gm/dL 6.0-8.3 (BEAKER) (test fufl=6586) CBC W/PLT COUNT & AUTO [id number] 12:30:00 Test Item Value Reference Range Comments WHITE BLOOD CELL COUNT (BEAKER) (test ylmo=196) 3.4 K/ L 4.0-10.0 RED BLOOD CELL COUNT (BEAKER) (test gwrq=024) 3.38 M/ L 4.00-5.00 HEMOGLOBIN (BEAKER) (test lprb=109) 11.9 GM/DL 12.0-15.0 HEMATOCRIT (BEAKER) (test tedy=411) 35.4 % 36.0-45.0 MEAN CORPUSCULAR VOLUME (BEAKER) (test xcpd=352) 105.0 fL 82.0-99.0 MEAN CORPUSCULAR HEMOGLOBIN (BEAKER) (test 35.2 pg 27.0-33.0 qdgp=251) MEAN CORPUSCULAR HEMOGLOBIN CONC (BEAKER) (test 33.6 GM/DL 32.0-36.0 orno=898) RED CELL DISTRIBUTION WIDTH (BEAKER) (test 13.0 % 10.3-14.2 zwnn=956) PLATELET COUNT (BEAKER) (test ayne=213) 110 K/CU MM 150-430 MEAN PLATELET VOLUME (BEAKER) (test rapv=138) 7.7 fL 6.5-10.5 NUCLEATED RED BLOOD CELLS (BEAKER) (test 0 /100 WBC 0-0 bzzp=466) NEUTROPHILS RELATIVE PERCENT (BEAKER) (test 78 % apxt=620) LYMPHOCYTES RELATIVE PERCENT (BEAKER) (test 15 % rkwr=280) MONOCYTES RELATIVE PERCENT (BEAKER) (test 5 % edxs=070) EOSINOPHILS RELATIVE PERCENT (BEAKER) (test 2 % nmij=475) BASOPHILS RELATIVE PERCENT (BEAKER) (test 0 % ngnu=409) NEUTROPHILS ABSOLUTE COUNT (BEAKER) (test 2.67 K/ L 1.80-8.00 rxnw=849) LYMPHOCYTES ABSOLUTE COUNT (BEAKER) (test 0.51 K/ L 1.48-4.50 vmps=912) MONOCYTES ABSOLUTE COUNT (BEAKER) (test 0.17 K/ L 0.00-1.30 egfu=062) EOSINOPHILS ABSOLUTE COUNT (BEAKER) (test 0.06 K/ L 0.00-0.50 oulk=005) BASOPHILS ABSOLUTE COUNT (BEAKER) (test 0.01 K/ L 0.00-0.20 bqqg=243) 0.00GLUCOSE-STAT [id number] 10:51:00 Test Item Value Reference Range Comments GLUCOSE RANDOM (BEAKER) (test rogw=819) 106 mg/dL 70-110 SODIUM NA-STAT [id number] 10:51:00 Test Item Value Reference Range Comments SODIUM (BEAKER) (test xcyk=495) 136 meq/L 135-148 BLOOD GAS, [id number] 10:51:00 Test Item Value Reference Range Comments PH ARTERIAL (BEAKER) (test nzqe=964) 7.41 7.35-7.45 PCO2 ARTERIAL (BEAKER) (test dlkt=395) 38 mmHg 35-45 PO2 ARTERIAL (BEAKER) (test ydww=539) 243 mmHg 80-90 O2 SATURATION ARTERIAL (BEAKER) (test cyaf=095) 99.6 % 96.0-97.0 HCO3 ARTERIAL (BEAKER) (test owei=726) 24 mmol/L 21-29 BASE EXCESS ARTERIAL (BEAKER) (test ntsr=153) -0.7 mmol/L -2.0-3.0 PATIENT TEMPERATURE (BEAKER) (test zirq=9034) 37.0 C FIO2 (BEAKER) (test bzwe=2282) 100.0 % HGB/HCT (H&H) - STAT [id number] 10:51:00 Test Item Value Reference Range Comments HEMOGLOBIN (BEAKER) (test wxdr=862) 11.6 g/dL 12.0-15.0 HEMATOCRIT (BEAKER) (test eare=040) 34.0 % 36.0-45.0 POTASSIUM-STAT [id number] 10:51:00 Test Item Value Reference Range Comments POTASSIUM (BEAKER) (test jsqg=171) 3.1 meq/L 3.6-5.5 CALCIUM, [id number] 10:51:00 Test Item Value Reference Range Comments CALCIUM IONIZED (BEAKER) (test jzwp=133) 1.06 mmol/L 1.12-1.27 PH, BLOOD (BEAKER) (test busg=9173) 7.41 [id number] 10:13:00 Test Item Value Reference Range Comments HAPTOGLOBIN (BEAKER) (test xujg=525) 119 mg/dL 14-258 Effective 01/10/2014: Reference Range ChangeNew: 14-258 Previous: 36-195CBC W/ PLT COUNT & AUTO [id number] 08:03:00 Test Item Value Reference Range Comments WHITE BLOOD CELL COUNT (BEAKER) (test rtbh=110) 3.1 K/ L 4.0-10.0 RED BLOOD CELL COUNT (BEAKER) (test lqdz=274) 4.32 M/ L 4.00-5.00 HEMOGLOBIN (BEAKER) (test osoa=248) 14.8 GM/DL 12.0-15.0 HEMATOCRIT (BEAKER) (test jone=134) 46.6 % 36.0-45.0 MEAN CORPUSCULAR VOLUME (BEAKER) (test clvx=186) 108.0 fL 82.0-99.0 MEAN CORPUSCULAR HEMOGLOBIN (BEAKER) (test 34.3 pg 27.0-33.0 rvet=367) MEAN CORPUSCULAR HEMOGLOBIN CONC (BEAKER) (test 31.9 GM/DL 32.0-36.0 lxkq=239) RED CELL DISTRIBUTION WIDTH (BEAKER) (test 14.9 % 10.3-14.2 kahr=622) PLATELET COUNT (BEAKER) (test mnek=765) 88 K/CU MM 150-430 MEAN PLATELET VOLUME (BEAKER) (test xhjc=852) 8.5 fL 6.5-10.5 NUCLEATED RED BLOOD CELLS (BEAKER) (test 0 /100 WBC 0-0 dvja=035) NEUTROPHILS RELATIVE PERCENT (BEAKER) (test 67 % oypn=089) LYMPHOCYTES RELATIVE PERCENT (BEAKER) (test 24 % nfgo=539) MONOCYTES RELATIVE PERCENT (BEAKER) (test 2 % kyhj=308) EOSINOPHILS RELATIVE PERCENT (BEAKER) (test 6 % azde=364) BASOPHILS RELATIVE PERCENT (BEAKER) (test 0 % kisw=070) NEUTROPHILS ABSOLUTE COUNT (BEAKER) (test 2.04 K/ L 1.80-8.00 mbei=896) LYMPHOCYTES ABSOLUTE COUNT (BEAKER) (test 0.74 K/ L 1.48-4.50 wjkj=704) MONOCYTES ABSOLUTE COUNT (BEAKER) (test lduf=093) 0.07 K/ L 0.00-1.30 EOSINOPHILS ABSOLUTE COUNT (BEAKER) (test 0.19 K/ L 0.00-0.50 wlgf=178) BASOPHILS ABSOLUTE COUNT (BEAKER) (test adeo=883) 0.01 K/ L 0.00-0.20 0.000.500.000.000.000.000.000.000.000.000.000.000.000.000.000.000.000.000.000.00 0.000.500.000.000.000.000.00 (MANUAL DIFFERENTIAL)2016-08-11 08:03:00 Test Item Value Reference Range Comments TOTAL COUNTED (BEAKER) (test gtdu=4636) WBC MORPHOLOGY (BEAKER) (test xkos=590) Normal PLT MORPHOLOGY (BEAKER) (test gmqj=939) Normal RBC MORPHOLOGY (BEAKER) (test qsab=654) Normal BASIC METABOLIC [id number] 05:10:00 Test Item Value Reference Range Comments SODIUM (BEAKER) (test 136 meq/L 136-145 txxt=557) POTASSIUM (BEAKER) (test 3.8 meq/L 3.5-5.1 zhrj=292) CHLORIDE (BEAKER) (test 100 meq/L 98-107 hrii=039) CO2 (BEAKER) (test 26 meq/L 22-29 lxah=262) BLOOD UREA NITROGEN 7 mg/dL 7-21 (BEAKER) (test svmk=022) CREATININE (BEAKER) (test 0.62 mg/dL 0.57-1.25 chxb=527) GLUCOSE RANDOM (BEAKER) 75 mg/dL 70-105 (test ocsa=244) CALCIUM (BEAKER) (test 9.7 mg/dL 8.4-10.2 melz=378) EGFR (BEAKER) (test 93 mL/min/1.73 sq m ESTIMATED GFR IS NOT catx=4021) ACCURATE CREATININE CLEARANCE IN PREDICTING GLOMERULAR FILTRATION RATE. ESTIMATED GFR IS NOT APPLICABLE FOR DIALYSIS PATIENTS. PLATELET [id number] 17:22:00 Test Item Value Reference Range Comments PLATELET COUNT (BEAKER) (test lzbo=074) 62 K/CU MM 150-430 Performed on a blue top tubePROTHROMBIN [id number] 14:25:00 Test Item Value Reference Range Comments PROTIME (BEAKER) (test cjgd=583) 14.1 seconds 11.7-14.7 INR (BEAKER) (test afnw=652) 1.1 <=5.9 RECOMMENDED COUMADIN/WARFARIN INR THERAPY RANGESSTANDARD DOSE: 2.0 - 3.0 Includes: PROPHYLAXIS forvenous thrombosis, systemic embolization; TREATMENT for venous thrombosis and/or pulmonary embolus.HIGH RISK: Target INR is 2.5-3.5 for patients with mechanical heart valves.HEPATIC FUNCTION [id number] 14:02 :00 Test Item Value Reference Range Comments TOTAL PROTEIN (BEAKER) (test kztw=167) 6.8 gm/dL 6.0-8.3 ALBUMIN (BEAKER) (test nwkk=9248) 3.2 g/dL 3.5-5.0 BILIRUBIN TOTAL (BEAKER) (test cjxw=046) 0.8 mg/dL 0.2-1.2 BILIRUBIN DIRECT (BEAKER) (test fgrl=300) 0.4 mg/dL 0.1-0.5 ALKALINE PHOSPHATASE (BEAKER) (test ipqx=313) 172 U/L 40-150 AST (SGOT) (BEAKER) (test ewqt=067) 38 U/L 5-34 ALT (SGPT) (BEAKER) (test twsi=825) 19 U/L 6-55 PERIPHERAL BLOOD SMEAR - HOLD [id number] 11:16:00 Test Item Value Reference Range Comments PERIPHERAL SMEAR SAVE (BEAKER) (test cnaa=5279) saved CBC (HEMOGRAM ONLY)2016-08-10 10:18:00 Test Item Value Reference Range Comments WHITE BLOOD CELL COUNT (BEAKER) (test kjic=245) 3.3 K/ L 4.0-10.0 RED BLOOD CELL COUNT (BEAKER) (test jhhm=225) 3.63 M/ L 4.00-5.00 HEMOGLOBIN (BEAKER) (test gbft=905) 13.0 GM/DL 12.0-15.0 HEMATOCRIT (BEAKER) (test ylsv=347) 38.9 % 36.0-45.0 MEAN CORPUSCULAR VOLUME (BEAKER) (test xlbu=016) 107.0 fL 82.0-99.0 MEAN CORPUSCULAR HEMOGLOBIN (BEAKER) (test 35.8 pg 27.0-33.0 gulh=775) MEAN CORPUSCULAR HEMOGLOBIN CONC (BEAKER) (test 33.5 GM/DL 32.0-36.0 kzqz=987) RED CELL DISTRIBUTION WIDTH (BEAKER) (test 14.7 % 10.3-14.2 wvcn=174) PLATELET COUNT (BEAKER) (test iteh=517) 85 K/CU MM 150-430 MEAN PLATELET VOLUME (BEAKER) (test vcqd=016) 7.8 fL 6.5-10.5 NUCLEATED RED BLOOD CELLS (BEAKER) (test 0 /100 WBC 0-0 ubov=666) 0.00CBC W/PLT COUNT & AUTO [id number] 09:44:00 Test Item Value Reference Range Comments WHITE BLOOD CELL COUNT (BEAKER) (test vdzj=279) 3.2 K/ L 4.0-10.0 RED BLOOD CELL COUNT (BEAKER) (test huaa=361) 3.80 M/ L 4.00-5.00 HEMOGLOBIN (BEAKER) (test fqmi=997) 12.7 GM/DL 12.0-15.0 HEMATOCRIT (BEAKER) (test pmga=312) 41.0 % 36.0-45.0 MEAN CORPUSCULAR VOLUME (BEAKER) (test nvnf=637) 108.0 fL 82.0-99.0 MEAN CORPUSCULAR HEMOGLOBIN (BEAKER) (test 33.5 pg 27.0-33.0 zecw=472) MEAN CORPUSCULAR HEMOGLOBIN CONC (BEAKER) (test 31.1 GM/DL 32.0-36.0 sezf=120) RED CELL DISTRIBUTION WIDTH (BEAKER) (test 13.4 % 10.3-14.2 uyvm=670) PLATELET COUNT (BEAKER) (test npef=467) 103 K/CU MM 150-430 MEAN PLATELET VOLUME (BEAKER) (test lgat=746) 8.7 fL 6.5-10.5 NUCLEATED RED BLOOD CELLS (BEAKER) (test 0 /100 WBC 0-0 xuyc=518) NEUTROPHILS RELATIVE PERCENT (BEAKER) (test 42 % ptbi=508) LYMPHOCYTES RELATIVE PERCENT (BEAKER) (test 41 % kjou=299) MONOCYTES RELATIVE PERCENT (BEAKER) (test 9 % yvvw=778) EOSINOPHILS RELATIVE PERCENT (BEAKER) (test 7 % ymhi=030) BASOPHILS RELATIVE PERCENT (BEAKER) (test 1 % yotm=537) NEUTROPHILS ABSOLUTE COUNT (BEAKER) (test 1.33 K/ L 1.80-8.00 wxrd=075) LYMPHOCYTES ABSOLUTE COUNT (BEAKER) (test 1.30 K/ L 1.48-4.50 geub=153) MONOCYTES ABSOLUTE COUNT (BEAKER) (test 0.28 K/ L 0.00-1.30 puki=458) EOSINOPHILS ABSOLUTE COUNT (BEAKER) (test 0.23 K/ L 0.00-0.50 thlh=946) BASOPHILS ABSOLUTE COUNT (BEAKER) (test 0.03 K/ L 0.00-0.20 whmw=453) 0.00BASIC METABOLIC [id number] 06:57:00 Test Item Value Reference Range Comments SODIUM (BEAKER) (test 139 meq/L 136-145 wzco=798) POTASSIUM (BEAKER) (test 3.7 meq/L 3.5-5.1 dnys=099) CHLORIDE (BEAKER) (test 105 meq/L 98-107 rilu=776) CO2 (BEAKER) (test 27 meq/L 22-29 ophr=256) BLOOD UREA NITROGEN 7 mg/dL 7-21 (BEAKER) (test iaui=987) CREATININE (BEAKER) (test 0.51 mg/dL 0.57-1.25 uxhq=629) GLUCOSE RANDOM (BEAKER) 76 mg/dL 70-105 (test pxar=276) CALCIUM (BEAKER) (test 8.8 mg/dL 8.4-10.2 smrx=346) EGFR (BEAKER) (test 116 mL/min/1.73 sq m ESTIMATED GFR IS NOT ibfd=9844) ACCURATE CREATININE CLEARANCE IN PREDICTING GLOMERULAR FILTRATION RATE. ESTIMATED GFR IS NOT APPLICABLE FOR DIALYSIS PATIENTS. HEPATITIS PANEL, [id number] 20:30:00 Test Item Value Reference Range Comments HEPATITIS A IGM ANTIBODY (BEAKER) (test Nonreactive Nonreactive fhns=814) HEPATITIS B CORE IGM ANTIBODY (BEAKER) (test Nonreactive Nonreactive bygn=236) HEPATITIS C ANTIBODY (BEAKER) (test wjje=962) Nonreactive Nonreactive HEPATITIS B SURFACE ANTIGEN (2) (BEAKER) (test Nonreactive Nonreactive hdis=9828) [id number] 18:19:00 Test Item Value Reference Range Comments FIBRINOGEN LEVEL (BEAKER) (test hsuv=122) 319 mg/dl 225-434 CBC W/PLT COUNT & AUTO [id number] 11:50:00 Test Item Value Reference Range Comments WHITE BLOOD CELL COUNT (BEAKER) (test kcof=426) 4.5 K/ L 4.0-10.0 RED BLOOD CELL COUNT (BEAKER) (test hcmb=014) 3.67 M/ L 4.00-5.00 HEMOGLOBIN (BEAKER) (test vsnm=882) 13.1 GM/DL 12.0-15.0 HEMATOCRIT (BEAKER) (test tvkg=396) 40.6 % 36.0-45.0 MEAN CORPUSCULAR VOLUME (BEAKER) (test nnnn=089) 111.0 fL 82.0-99.0 MEAN CORPUSCULAR HEMOGLOBIN (BEAKER) (test 35.8 pg 27.0-33.0 opml=526) MEAN CORPUSCULAR HEMOGLOBIN CONC (BEAKER) (test 32.3 GM/DL 32.0-36.0 ehxv=109) RED CELL DISTRIBUTION WIDTH (BEAKER) (test 13.3 % 10.3-14.2 owkz=310) PLATELET COUNT (BEAKER) (test sfrg=502) 79 K/CU MM 150-430 MEAN PLATELET VOLUME (BEAKER) (test hhgk=612) 9.1 fL 6.5-10.5 NUCLEATED RED BLOOD CELLS (BEAKER) (test 0 /100 WBC 0-0 tdqg=754) NEUTROPHILS RELATIVE PERCENT (BEAKER) (test 31 % fqto=415) LYMPHOCYTES RELATIVE PERCENT (BEAKER) (test 53 % lyku=657) MONOCYTES RELATIVE PERCENT (BEAKER) (test 9 % ruix=193) EOSINOPHILS RELATIVE PERCENT (BEAKER) (test 7 % wkyk=732) BASOPHILS RELATIVE PERCENT (BEAKER) (test 1 % okpn=761) NEUTROPHILS ABSOLUTE COUNT (BEAKER) (test 1.37 K/ L 1.80-8.00 phbn=678) LYMPHOCYTES ABSOLUTE COUNT (BEAKER) (test 2.35 K/ L 1.48-4.50 nztk=680) MONOCYTES ABSOLUTE COUNT (BEAKER) (test acdb=344) 0.42 K/ L 0.00-1.30 EOSINOPHILS ABSOLUTE COUNT (BEAKER) (test 0.29 K/ L 0.00-0.50 jdao=769) BASOPHILS ABSOLUTE COUNT (BEAKER) (test qxta=270) 0.04 K/ L 0.00-0.20 0.000.500.000.000.000.000.000.000.000.000.000.000.000.000.000.000.000.000.000.00 0.000.000.000.000.000.000.00 (MANUAL DIFFERENTIAL)2016-08-09 11:50:00 Test Item Value Reference Range Comments TOTAL COUNTED (BEAKER) (test brkr=3368) WBC MORPHOLOGY (BEAKER) (test qkjl=060) Normal LARGE PLT(BEAKER) (test pmjo=5397) Present ANISOCYTOSIS (BEAKER) (test wrvq=191) 1+ few POIKILOCYTES (BEAKER) (test knmc=213) 1+ few BASIC METABOLIC [id number] 04:54:00 Test Item Value Reference Range Comments SODIUM (BEAKER) (test 138 meq/L 136-145 ulfv=183) POTASSIUM (BEAKER) (test 3.8 meq/L 3.5-5.1 kayu=691) CHLORIDE (BEAKER) (test 106 meq/L 98-107 lbwl=760) CO2 (BEAKER) (test 25 meq/L 22-29 xcje=517) BLOOD UREA NITROGEN 8 mg/dL 7-21 (BEAKER) (test kmkd=312) CREATININE (BEAKER) (test 0.51 mg/dL 0.57-1.25 nach=585) GLUCOSE RANDOM (BEAKER) 79 mg/dL 70-105 (test jsrc=528) CALCIUM (BEAKER) (test 8.4 mg/dL 8.4-10.2 vlzn=164) EGFR (BEAKER) (test 116 mL/min/1.73 sq m ESTIMATED GFR IS NOT oyrg=4142) ACCURATE CREATININE CLEARANCE IN PREDICTING GLOMERULAR FILTRATION RATE. ESTIMATED GFR IS NOT APPLICABLE FOR DIALYSIS PATIENTS. RETICULOCYTE [id number] 15:13:00 Test Item Value Reference Range Comments RETICULOCYTE COUNT PCT (BEAKER) (test nkry=875) 3.8 % 0.4-2.9 LACTATE DEHYDROGENASE (LDH)2016-08-08 15:12:00 Test Item Value Reference Range Comments LACTATE DEHYDROGENASE (BEAKER) (test klci=729) 146 U/L 125-220 CBC W/PLT COUNT & AUTO [id number] 11:10:00 Test Item Value Reference Range Comments WHITE BLOOD CELL COUNT (BEAKER) (test yyls=345) 3.7 K/ L 4.0-10.0 RED BLOOD CELL COUNT (BEAKER) (test ubsw=526) 4.27 M/ L 4.00-5.00 HEMOGLOBIN (BEAKER) (test eobn=729) 14.5 GM/DL 12.0-15.0 HEMATOCRIT (BEAKER) (test ekxm=507) 46.2 % 36.0-45.0 MEAN CORPUSCULAR VOLUME (BEAKER) (test tbfx=411) 108.0 fL 82.0-99.0 MEAN CORPUSCULAR HEMOGLOBIN (BEAKER) (test 34.1 pg 27.0-33.0 zyzn=390) MEAN CORPUSCULAR HEMOGLOBIN CONC (BEAKER) (test 31.5 GM/DL 32.0-36.0 fdod=060) RED CELL DISTRIBUTION WIDTH (BEAKER) (test 15.0 % 10.3-14.2 dqis=944) PLATELET COUNT (BEAKER) (test gogy=594) 34 K/CU MM 150-430 MEAN PLATELET VOLUME (BEAKER) (test ewzz=980) 6.3 fL 6.5-10.5 NUCLEATED RED BLOOD CELLS (BEAKER) (test 0 /100 WBC 0-0 ghww=965) 0.00(MANUAL DIFFERENTIAL)2016-08-08 11:10:00 Test Item Value Reference Range Comments NEUTROPHILS - REL (DIFF) (BEAKER) (test ilrw=5395) 43 % LYMPHOCYTES - REL (DIFF) (BEAKER) (test olwo=4793) 45 % MONOCYTES - REL (DIFF) (BEAKER) (test pkyk=9476) 8 % EOSINOPHILS - REL (DIFF) (BEAKER) (test qjrl=0488) 1 % BANDS - REL (DIFF) (BEAKER) (test zzcp=6759) 3 % 0-10 NEUTROPHILS - ABS (DIFF) (BEAKER) (test syzy=5069) 1.59 K/ L 1.80-8.00 LYMPHOCYTES - ABS (DIFF) (BEAKER) (test xryr=0696) 1.67 K/ L 1.48-4.50 MONOCYTES - ABS (DIFF) (BEAKER) (test bpri=2982) 0.30 K/ L 0.00-1.30 EOSINOPHILS - ABS (DIFF) (BEAKER) (test nquo=4428) 0.04 K/ L 0.00-0.50 BANDS-ABS (DIFF) (BEAKER) (test iizg=2127) 0.1 K/ L 0.0-0.8 TOTAL COUNTED (BEAKER) (test gkkn=0952) 100 BANDS + SEGMENTED NEUTROPHILS (BEAKER) (test 1.70 ptzu=5279) WBC MORPHOLOGY (BEAKER) (test gjcg=285) Normal PLT MORPHOLOGY (BEAKER) (test tukb=803) Normal RBC MORPHOLOGY (BEAKER) (test jnfu=162) Normal VITAMIN B12 AND [id number] 07:29:00 Test Item Value Reference Range Comments VITAMIN B12 (BEAKER) (test gbcf=570) 486 pg/mL 213-816 FOLATE (BEAKER) (test slnt=384) 17.2 ng/mL >=7.0 Effective 01/10/2014: Folate Reference Range ChangeNew: >=7.0 Previous: & gt;=5.4BASIC METABOLIC [id number] 07:05:00 Test Item Value Reference Range Comments SODIUM (BEAKER) (test 136 meq/L 136-145 rlpw=035) POTASSIUM (BEAKER) (test 3.8 meq/L 3.5-5.1 Specimen slightly jyci=270) hemolyzed CHLORIDE (BEAKER) (test 101 meq/L 98-107 noou=730) CO2 (BEAKER) (test 28 meq/L 22-29 kyau=252) BLOOD UREA NITROGEN 8 mg/dL 7-21 (BEAKER) (test nxzh=303) CREATININE (BEAKER) (test 0.57 mg/dL 0.57-1.25 Specimen slightly sijg=272) hemolyzed GLUCOSE RANDOM (BEAKER) 87 mg/dL 70-105 (test xwxy=597) CALCIUM (BEAKER) (test 9.2 mg/dL 8.4-10.2 xlfo=850) EGFR (BEAKER) (test 102 mL/min/1.73 sq m ESTIMATED GFR IS NOT anlw=1880) ACCURATE CREATININE CLEARANCE IN PREDICTING GLOMERULAR FILTRATION RATE. ESTIMATED GFR IS NOT APPLICABLE FOR DIALYSIS PATIENTS. COMPREHENSIVE METABOLIC [id number] 07:05:00 Test Item Value Reference Range Comments TOTAL PROTEIN (BEAKER) 6.9 gm/dL 6.0-8.3 Specimen slightly (test vfsn=610) hemolyzed ALBUMIN (BEAKER) (test 3.3 g/dL 3.5-5.0 Specimen slightly uefw=4868) hemolyzed ALKALINE PHOSPHATASE 150 U/L 40-150 (BEAKER) (test sfag=049) BILIRUBIN TOTAL (BEAKER) 1.0 mg/dL 0.2-1.2 Specimen slightly (test tnwi=353) hemolyzed SODIUM (BEAKER) (test 136 meq/L 136-145 brlq=513) POTASSIUM (BEAKER) (test 3.8 meq/L 3.5-5.1 Specimen slightly zeta=372) hemolyzed CHLORIDE (BEAKER) (test 101 meq/L 98-107 ushp=649) CO2 (BEAKER) (test 28 meq/L 22-29 bygp=828) BLOOD UREA NITROGEN 8 mg/dL 7-21 (BEAKER) (test vzhk=940) CREATININE (BEAKER) (test 0.57 mg/dL 0.57-1.25 Specimen slightly niwv=253) hemolyzed GLUCOSE RANDOM (BEAKER) 87 mg/dL 70-105 (test blee=103) CALCIUM (BEAKER) (test 9.2 mg/dL 8.4-10.2 eolh=220) AST (SGOT) (BEAKER) (test 43 U/L 5-34 Specimen slightly csrd=985) hemolyzed ALT (SGPT) (BEAKER) (test 17 U/L 6-55 Specimen slightly zvvy=758) hemolyzed EGFR (BEAKER) (test 102 mL/min/1.73 sq ESTIMATED GFR IS NOT ingr=3639) m ACCURATE CREATININE CLEARANCE IN PREDICTING GLOMERULAR FILTRATION RATE. ESTIMATED GFR IS NOT APPLICABLE FOR DIALYSIS PATIENTS. PERIPHERAL BLOOD SMEAR - PATHOLOGIST [id number] 14:45:00 Test Item Value Reference Range Comments PERIPHERAL SMR REVIEW Thrombocytopenia. (BEAKER) (test kond=8244) Occasional large forms. No clumping or satellitosis. [id number] Ele (BEAKER) (test ftju=4242) Ama Carmen (electronic signature) CBC (HEMOGRAM ONLY)2016-08-07 10:59:00 Test Item Value Reference Range Comments WHITE BLOOD CELL COUNT (BEAKER) (test tuqg=204) 4.8 K/ L 4.0-10.0 RED BLOOD CELL COUNT (BEAKER) (test stwe=099) 4.23 M/ L 4.00-5.00 HEMOGLOBIN (BEAKER) (test otfz=641) 14.9 GM/DL 12.0-15.0 HEMATOCRIT (BEAKER) (test qrla=735) 46.1 % 36.0-45.0 MEAN CORPUSCULAR VOLUME (BEAKER) (test jgmd=613) 109.0 fL 82.0-99.0 MEAN CORPUSCULAR HEMOGLOBIN (BEAKER) (test 35.3 pg 27.0-33.0 jdhg=597) MEAN CORPUSCULAR HEMOGLOBIN CONC (BEAKER) (test 32.4 GM/DL 32.0-36.0 erdo=300) RED CELL DISTRIBUTION WIDTH (BEAKER) (test 14.9 % 10.3-14.2 fdsp=590) PLATELET COUNT (BEAKER) (test ajhx=517) 82 K/CU MM 150-430 MEAN PLATELET VOLUME (BEAKER) (test dgwu=071) 8.8 fL 6.5-10.5 NUCLEATED RED BLOOD CELLS (BEAKER) (test 0 /100 WBC 0-0 utap=097) 0.00(MANUAL DIFFERENTIAL)2016-08-07 10:59:00 Test Item Value Reference Range Comments NEUTROPHILS - REL (DIFF) (BEAKER) (test 48 % lmjl=3614) LYMPHOCYTES - REL (DIFF) (BEAKER) (test 38 % tfgq=5485) MONOCYTES - REL (DIFF) (BEAKER) (test xjfw=7114) 9 % EOSINOPHILS - REL (DIFF) (BEAKER) (test 5 % mwvj=6495) NEUTROPHILS - ABS (DIFF) (BEAKER) (test 2.30 K/ L 1.80-8.00 fxiz=1002) LYMPHOCYTES - ABS (DIFF) (BEAKER) (test 1.82 K/ L 1.48-4.50 zhiw=7297) MONOCYTES - ABS (DIFF) (BEAKER) (test owdc=9682) 0.43 K/ L 0.00-1.30 EOSINOPHILS - ABS (DIFF) (BEAKER) (test 0.24 K/ L 0.00-0.50 wuyq=7340) TOTAL COUNTED (BEAKER) (test jvfr=3162) 100 MANUAL NRBC PER 100 CELLS (BEAKER) (test 1 /100 WBC 0-0 gupf=1099) WBC MORPHOLOGY (BEAKER) (test vave=557) Normal PLT MORPHOLOGY (BEAKER) (test ecjs=858) Normal RBC MORPHOLOGY (BEAKER) (test dyjx=582) Normal TSH/FREE T4 IF [id number] 08:56:00 Test Item Value Reference Range Comments THYROID STIMULATING HORMONE (BEAKER) (test 0.38 uIU/mL 0.35-4.94 qwfh=591) BASIC METABOLIC [id number] 08:03:00 Test Item Value Reference Range Comments SODIUM (BEAKER) (test 137 meq/L 136-145 jaqp=745) POTASSIUM (BEAKER) (test 4.3 meq/L 3.5-5.1 Specimen slightly yhni=655) hemolyzed CHLORIDE (BEAKER) (test 105 meq/L 98-107 elgk=247) CO2 (BEAKER) (test 23 meq/L 22-29 iitn=487) BLOOD UREA NITROGEN 9 mg/dL 7-21 (BEAKER) (test ibvv=199) CREATININE (BEAKER) (test 0.55 mg/dL 0.57-1.25 Specimen slightly ewoo=250) hemolyzed GLUCOSE RANDOM (BEAKER) 79 mg/dL 70-105 (test jhsc=561) CALCIUM (BEAKER) (test 8.7 mg/dL 8.4-10.2 zwtg=148) EGFR (BEAKER) (test 106 mL/min/1.73 sq m ESTIMATED GFR IS NOT tcoo=2607) ACCURATE CREATININE CLEARANCE IN PREDICTING GLOMERULAR FILTRATION RATE. ESTIMATED GFR IS NOT APPLICABLE FOR DIALYSIS PATIENTS. [id number] 07:51:00 Test Item Value Reference Range Comments PARTIAL THROMBOPLASTIN TIME (BEAKER) (test 33.1 seconds 22.5-36.0 btdl=512) PROTHROMBIN [id number] 07:50:00 Test Item Value Reference Range Comments PROTIME (BEAKER) (test amco=744) 15.0 seconds 11.7-14.7 INR (BEAKER) (test gmej=379) 1.2 <=5.9 RECOMMENDED COUMADIN/WARFARIN INR THERAPY RANGESSTANDARD DOSE: 2.0 - 3.0 Includes: PROPHYLAXIS forvenous thrombosis, systemic embolization; TREATMENT for venous thrombosis and/or pulmonary embolus.HIGH RISK: Target INR is 2.5-3.5 for patients with mechanical heart valves.T4, [id number] 10:11:00 Test Item Value Reference Range Comments FREE T4 (BEAKER) (test wdye=018) 1.49 ng/dL 0.70-1.48 TSH/FREE T4 IF [id number] 06:27:00 Test Item Value Reference Range Comments THYROID STIMULATING HORMONE (BEAKER) (test 11.79 uIU/mL 0.35-4.94 akgo=988) CBC W/PLT COUNT & AUTO [id number] 09:40:00 Test Item Value Reference Range Comments WHITE BLOOD CELL COUNT (BEAKER) (test fdqj=790) 7.6 K/ L 4.0-10.0 RED BLOOD CELL COUNT (BEAKER) (test nvri=566) 3.28 M/ L 4.00-5.00 HEMOGLOBIN (BEAKER) (test wpgy=919) 13.6 GM/DL 12.0-15.0 HEMATOCRIT (BEAKER) (test gszm=910) 37.7 % 36.0-45.0 MEAN CORPUSCULAR VOLUME (BEAKER) (test ihnc=388) 115.0 fL 82.0-99.0 MEAN CORPUSCULAR HEMOGLOBIN (BEAKER) (test 41.4 pg 27.0-33.0 ussn=131) MEAN CORPUSCULAR HEMOGLOBIN CONC (BEAKER) (test 36.0 GM/DL 32.0-36.0 zxto=988) RED CELL DISTRIBUTION WIDTH (BEAKER) (test 14.1 % 10.3-14.2 chtf=657) PLATELET COUNT (BEAKER) (test epxx=841) 122 K/CU MM 150-430 MEAN PLATELET VOLUME (BEAKER) (test zmob=373) 8.4 fL 6.5-10.5 NUCLEATED RED BLOOD CELLS (BEAKER) (test 0 /100 WBC 0-0 gkia=734) NEUTROPHILS RELATIVE PERCENT (BEAKER) (test 68 % xxfo=096) LYMPHOCYTES RELATIVE PERCENT (BEAKER) (test 19 % nzsm=465) MONOCYTES RELATIVE PERCENT (BEAKER) (test 9 % eohi=364) EOSINOPHILS RELATIVE PERCENT (BEAKER) (test 3 % xbnh=284) BASOPHILS RELATIVE PERCENT (BEAKER) (test 0 % jauq=899) NEUTROPHILS ABSOLUTE COUNT (BEAKER) (test 5.19 K/ L 1.80-8.00 uoob=800) LYMPHOCYTES ABSOLUTE COUNT (BEAKER) (test 1.47 K/ L 1.48-4.50 cpye=323) MONOCYTES ABSOLUTE COUNT (BEAKER) (test 0.70 K/ L 0.00-1.30 iews=200) EOSINOPHILS ABSOLUTE COUNT (BEAKER) (test 0.21 K/ L 0.00-0.50 sgfo=207) BASOPHILS ABSOLUTE COUNT (BEAKER) (test 0.03 K/ L 0.00-0.20 hdql=386) 0.00[facility] METABOLIC [id number] 05:48:00 Test Item Value Reference Range Comments SODIUM (BEAKER) (test 133 meq/L 136-145 kllz=294) POTASSIUM (BEAKER) (test 4.6 meq/L 3.5-5.1 Specimen slightly mzqn=867) hemolyzed CHLORIDE (BEAKER) (test 101 meq/L 98-107 lgni=703) CO2 (BEAKER) (test 24 meq/L 22-29 gqul=635) BLOOD UREA NITROGEN 9 mg/dL 7-21 (BEAKER) (test aksy=619) CREATININE (BEAKER) (test 0.58 mg/dL 0.57-1.25 Specimen slightly akfc=690) hemolyzed GLUCOSE RANDOM (BEAKER) 89 mg/dL 70-105 (test knem=612) CALCIUM (BEAKER) (test 9.4 mg/dL 8.4-10.2 nauc=787) EGFR (BEAKER) (test 100 mL/min/1.73 sq m ESTIMATED GFR IS NOT zkew=1343) ACCURATE CREATININE CLEARANCE IN PREDICTING GLOMERULAR FILTRATION RATE. ESTIMATED GFR IS NOT APPLICABLE FOR DIALYSIS PATIENTS. URINALYSIS W/ [id number] 06:22:00 Test Item Value Reference Range Comments COLOR (BEAKER) (test hkbf=532) Yellow CLARITY (BEAKER) (test oque=941) Clear SPECIFIC GRAVITY UA (BEAKER) (test ftmy=260) 1.006 1.001-1.035 PH UA (BEAKER) (test rxas=912) 7.0 5.0-8.0 PROTEIN UA (BEAKER) (test jrug=699) Negative Negative GLUCOSE UA (BEAKER) (test patt=117) Negative Negative KETONES UA (BEAKER) (test yufi=007) Trace Negative BILIRUBIN UA (BEAKER) (test cuxs=770) Negative Negative BLOOD UA (BEAKER) (test ciyh=904) Negative Negative NITRITE UA (BEAKER) (test oyoo=716) Negative Negative LEUKOCYTE ESTERASE UA (BEAKER) (test pcdd=412) Small Negative UROBILINOGEN UA (BEAKER) (test yjjj=618) 0.2 mg/dL 0.2-1.0 RBC UA (BEAKER) (test rzia=083) 1 /HPF WBC UA (BEAKER) (test irwi=132) 4 /HPF BACTERIA (BEAKER) (test mbkf=507) Rare MUCUS (BEAKER) (test pstk=8798) Rare SQUAMOUS EPITHELIAL (BEAKER) (test kmwb=539) 1 /HPF HYALINE CASTS (BEAKER) (test cbwu=116) 2 /LPF SOURCE(BEAKER) (test cjgg=1849) Urine, [place] VITAMIN D, [id number] 15:19:00 Test Item Value Reference Range Comments VITAMIN D 25-OH (BEAKER) (test idfs=3825) 63.3 ng/mL 13.0-47.8 CBC W/PLT COUNT & AUTO [id number] 08:32:00 Test Item Value Reference Range Comments WHITE BLOOD CELL COUNT (BEAKER) (test nqew=683) 11.2 K/ L 4.0-10.0 RED BLOOD CELL COUNT (BEAKER) (test sdtl=446) 3.74 M/ L 4.00-5.00 HEMOGLOBIN (BEAKER) (test chlo=438) 14.9 GM/DL 12.0-15.0 HEMATOCRIT (BEAKER) (test opla=547) 44.0 % 36.0-45.0 MEAN CORPUSCULAR VOLUME (BEAKER) (test ibbb=690) 118.0 fL 82.0-99.0 MEAN CORPUSCULAR HEMOGLOBIN (BEAKER) (test 39.7 pg 27.0-33.0 dybx=094) MEAN CORPUSCULAR HEMOGLOBIN CONC (BEAKER) (test 33.8 GM/DL 32.0-36.0 uagw=555) RED CELL DISTRIBUTION WIDTH (BEAKER) (test 12.8 % 10.3-14.2 zlnk=282) PLATELET COUNT (BEAKER) (test kjxq=461) 116 K/CU MM 150-430 MEAN PLATELET VOLUME (BEAKER) (test tibf=502) 8.9 fL 6.5-10.5 NUCLEATED RED BLOOD CELLS (BEAKER) (test 0 /100 WBC 0-0 wctq=278) NEUTROPHILS RELATIVE PERCENT (BEAKER) (test 75 % uwkf=751) LYMPHOCYTES RELATIVE PERCENT (BEAKER) (test 13 % gpny=115) MONOCYTES RELATIVE PERCENT (BEAKER) (test 10 % gmuj=914) EOSINOPHILS RELATIVE PERCENT (BEAKER) (test 3 % zgtd=374) BASOPHILS RELATIVE PERCENT (BEAKER) (test 1 % jrue=520) NEUTROPHILS ABSOLUTE COUNT (BEAKER) (test 8.37 K/ L 1.80-8.00 pryd=346) LYMPHOCYTES ABSOLUTE COUNT (BEAKER) (test 1.41 K/ L 1.48-4.50 julw=764) MONOCYTES ABSOLUTE COUNT (BEAKER) (test 1.09 K/ L 0.00-1.30 hghp=675) EOSINOPHILS ABSOLUTE COUNT (BEAKER) (test 0.29 K/ L 0.00-0.50 clma=630) BASOPHILS ABSOLUTE COUNT (BEAKER) (test 0.06 K/ L 0.00-0.20 vznh=604) 0.00BASI METABOLIC [id number] 05:11:00 Test Item Value Reference Range Comments SODIUM (BEAKER) (test 135 meq/L 136-145 prvu=248) POTASSIUM (BEAKER) (test 4.4 meq/L 3.5-5.1 Specimen slightly aujp=986) hemolyzed CHLORIDE (BEAKER) (test 98 meq/L 98-107 fsro=422) CO2 (BEAKER) (test 26 meq/L 22-29 dalc=210) BLOOD UREA NITROGEN 9 mg/dL 7-21 (BEAKER) (test auoz=510) CREATININE (BEAKER) (test 0.60 mg/dL 0.57-1.25 Specimen slightly grqn=499) hemolyzed GLUCOSE RANDOM (BEAKER) 76 mg/dL 70-105 (test oklw=064) CALCIUM (BEAKER) (test 9.2 mg/dL 8.4-10.2 bufa=073) EGFR (BEAKER) (test 96 mL/min/1.73 sq m ESTIMATED GFR IS NOT knhw=1749) ACCURATE CREATININE CLEARANCE IN PREDICTING GLOMERULAR FILTRATION RATE. ESTIMATED GFR IS NOT APPLICABLE FOR DIALYSIS PATIENTS. URINALYSIS W/ [id number] 04:05:00 Test Item Value Reference Range Comments COLOR (BEAKER) (test ghgl=962) Yellow CLARITY (BEAKER) (test rrkw=349) Clear SPECIFIC GRAVITY UA (BEAKER) (test pvhm=981) 1.007 1.001-1.035 PH UA (BEAKER) (test pqmt=165) 7.0 5.0-8.0 PROTEIN UA (BEAKER) (test loev=202) Negative Negative GLUCOSE UA (BEAKER) (test ayoy=043) Negative Negative KETONES UA (BEAKER) (test kodh=085) Trace Negative BILIRUBIN UA (BEAKER) (test hzri=003) Negative Negative BLOOD UA (BEAKER) (test kqem=697) Moderate Negative NITRITE UA (BEAKER) (test yyfw=479) Negative Negative LEUKOCYTE ESTERASE UA (BEAKER) (test ekus=545) Small Negative UROBILINOGEN UA (BEAKER) (test zyjc=893) 2.0 mg/dL 0.2-1.0 RBC UA (BEAKER) (test ksdl=004) 2 /HPF WBC UA (BEAKER) (test yuye=496) 5 /HPF BACTERIA (BEAKER) (test ottk=876) Rare MUCUS (BEAKER) (test pjpc=4594) Rare SQUAMOUS EPITHELIAL (BEAKER) (test adxt=676) < /HPF HYALINE CASTS (BEAKER) (test sdlw=121) 2 /LPF SOURCE(BEAKER) (test oxss=4066) Urine, [place]
--- NOTE | 2018-10-26 10:04 | RAD REPORT ---
EXAM DESCRIPTION: CT - Stone Protocol - 10/26/2018 9:50 am CLINICAL HISTORY: Abdominal pain. Back pain COMPARISON: 2017 TECHNIQUE: Computed axial tomography of the abdomen pelvis was obtained without oral or IV contrast. Lack of IV and oral contrast limits evaluation of solid organs, bowel, and vessels. Coronal reformat landen images were obtained and reviewed. All CT scans are performed using dose optimization technique as appropriate and may include automated exposure control or mA/KV adjustment according to patient size. FINDINGS: A renal calculus is not seen. An ureteral calculus is not noted. A bladder calculus is not present. The liver has a nodular contour. The caudate lobe is prominent. The liver is likely cirrhotic. Spleen measures 13 centimeters. The pancreas and adrenals appear grossly normal. Diverticula stem from the colon without evidence of diverticulitis. Small to moderate hiatal hernia. Cholecystectomy Moderate compression fracture involves the L5 vertebral body. It has developed since 2017. A fracture line is not visualized. Guerrier rods united by screws have been placed into the lower thoracic/up per lumbar spine. Marked old compression fracture of L1 vertebral body unchanged from 2017 IMPRESSION: Negative for a genitourinary calculus Development of a a moderate compression fracture involving the L5 vertebral body since 2017. It has m ore of the appearance of being relatively old than acute. If the patient however is clinical symptoms to suggest this may be acute then MRI would be recommended
[2018-10-26 11:01] LABS: Urine Bacteria <20 /HPF (<20); Urine RBC <5 /HPF (NONE SEEN)
[2018-10-26 11:02] LABS: Urine Culture Reflex Order NOT NEEDED
--- NOTE | 2018-10-26 11:58 | ER ---
Nurse's Notes [facility] Name: Regina Velasquez Age: 83 yrs Sex: Female : 1935 Arrival Date: 10/26/2018 Time: 09:19 Bed 16 Private MD: Diagnosis: Low back pain;Compression fracture L5 Presentation: 10/26 09:14 Presenting complaint: EMS states: Pt. is 83 yr. old from home. A \T\ O x 4, c/o back pain rb1 10/10 when twisting and turning. History of back surgery x 3 years ago, Hyperlipidemia, and chronic pain. Administered Toradol 30 mg IVP x 1 to the 20 G in the right AC. Allergic to Strawberries. Home medications are Aspirin, Omeprazole, Prilosec, Synthroid. Uses walker at home to ambulate. BP 126/90, 74, 98% RA. Transition of care: patient was not received from another setting of care. Onset of symptoms was October 25, 2018. Risk Assessment: Do you want to hurt yourself or someone else? Patient reports no desire to harm self or others. Initial Sepsis Screen: Does the patient meet any 2 criteria? No. Patient's initial sepsis screen is negative. Does the patient have a suspected source of infection? No. Patient's initial sepsis screen is negative. Care prior to arrival: None. 09:14 Method Of Arrival: EMS: [facility] rb1 09:14 Acuity: NOELLE 3 rb1 Triage Assessment: 09:14 General: Appears in no apparent distress. comfortable, Behavior is calm, cooperative. rb1 General: Pt. denies pain at this time, but reports pain 10/10 when she twists or turns.. Pain: Denies pain. Neuro: Level of Consciousness is awake, alert, obeys commands, Oriented to person, place, time, situation. Cardiovascular: Capillary refill < 3 seconds is brisk in bilateral fingers. Respiratory: Airway is patent Respiratory effort is even, unlabored, Respiratory pattern is regular, symmetrical. GI: No signs and/or symptoms were reported involving the gastrointestinal system. : No signs and/or symptoms were reported regarding the genitourinary system. Derm: Skin is pink, warm \T\ dry. Musculoskeletal: Range of motion: intact in all extremities, Reports pain in right low back only when she twists and turns. 09:14 Musculoskeletal: Swelling bilateral lower extremities. rb1 Historical: - Allergies: 09:14 Strawberries; rb1 - Home Meds: 09:14 aspirin 81 mg Oral chew 1 tab once daily [Active]; Levothroid 100 mcg Oral tab 1 tab rb1 once daily [Active]; Omeprazole Oral [Active]; Prilosec Oral [Active]; - PMHx: 09:14 Gout; mass left breast; rb1 - PSHx: 09:14 back; Breast implants; Tubal ligation; rb1 - Immunization history:: Adult Immunizations up to date. - Social history:: Smoking status: Patient/guardian denies using tobacco. - Ebola Screening: : Patient negative for fever greater than or equal to 101.5 degrees Fahrenheit, and additional compatible Ebola Virus Disease symptoms. Screenin:14 Abuse screen: Denies threats or abuse. Nutritional screening: No deficits noted. rb1 Tuberculosis screening: No symptoms or risk factors identified. Fall Risk No fall in past 12 months (0 pts). Secondary diagnosis (15 points) impaired mobility, IV access (20 points). Ambulatory Aid- Crutches/Cane/Walker (15 pts). Gait- Impaired (20 pts.). Mental Status- Oriented to own ability (0 pts). Total Salas Fall Scale indicates High Risk Score (45 or more points). Fall prevention measures have been instituted. Side Rails Up X 2 Placed Close to Nursing Station 1:1 Attendant Assigned Frequent Obs/Assessments Occuring As available patient and family educated on Fall Prevention Program and Strategies. Assessment: 09:14 General: See triage assessment. rb1 09:57 Reassessment: Assisted pt. with bedpan. Voided x 1. rb1 10:14 Reassessment: Patient appears in no apparent distress at this time. Patient and/or rb1 family updated on plan of care and expected duration. Pain level reassessed. Patient is alert, oriented x 3, equal unlabored respirations, skin warm/dry/pink. Patient denies pain at this time. 10:33 Reassessment: Assisted pt. on bedpan. Voided x 1. rb1 11:30 Reassessment: Patient appears in no apparent distress at this time. No changes from rb1 previously documented assessment. 11:48 Reassessment: Assisted pt. on bedpan. Voided x 1. rb1 12:00 Reassessment: Patient appears in no apparent distress at this time. Patient and/or rb1 family updated on plan of care and expected duration. Pain level reassessed. Patient is alert, oriented x 3, equal unlabored respirations, skin warm/dry/pink. Patient denies pain at this time. Vital Signs: 09:14 BP 189 / 79; Pulse 66; Resp 17; Temp 98.6(O); Pulse Ox 100% on R/A; Weight 83.91 kg rb1 (R); Height 5 ft. 5 in. (165.10 cm) (R); Pain 0/10; 10:10 BP 183 / 79; Pulse 67; Resp 17; Temp 98.5(O); Pulse Ox 98% ; Pain 0/10; rb1 11:10 BP 182 / 77; Pulse 62; Resp 16; Temp 98.4(O); Pulse Ox 100% on R/A; Pain 0/10; rb1 12:10 BP 188 / 81; Pulse 69; Resp 16; Temp 98.6(O); Pulse Ox 100% on R/A; Pain 0/10; rb1 09:14 Body Mass Index 30.79 (83.91 kg, 165.10 cm) [facility] ED Course: 09:14 Arm band placed on right wrist. rb1 09:14 Patient has correct armband on for positive identification. Bed in low position. Call rb1 light in reach. Side rails up X2. Pulse ox on. NIBP on. 09:14 Maintain EMS IV. Dressing intact. Good blood return noted. Site clean \T\ dry. Gauge \T\ rb 1 site: 20 G R AC. 09:19 Patient arrived in ED. em1 09:19 Junaid Lewis NP is PHCP. pm1 09:19 Tristan Munson MD is Attending Physician. pm1 09:26 Donna Lindquist, LEVON is Primary Nurse. rb1 09:30 Triage completed. rb1 09:49 CT completed. Patient tolerated procedure well. Patient moved to CT via stretcher. sw Patient moved back from CT. 09:51 CT Stone Protocol In Process Unspecified. EDMS 10:38 Urine collected: clean catch specimen, clear, sandra colored. jb1 12:21 No provider procedures requiring assistance completed. IV discontinued, intact, rb1 bleeding controlled, No redness/swelling at site. Pressure dressing applied. Administered Medications: No medications were administered Output: 09:57 Urine: 1ml (Voided); Total: 1ml. rb1 10:33 Urine: 1ml (Voided); Total: 2ml. rb1 11:48 Urine: 1ml (Voided); Total: 3ml. rb1 Outcome: 11:57 Discharge ordered by MD. pm1 12:21 Patient left the ED. rb1 12:21 Discharged to home via wheelchair, with family. rb1 12:21 Condition: stable 12:21 Discharge instructions given to patient, Instructed on discharge instructions, follow up and referral plans. medication usage, Demonstrated understanding of instructions, follow-up care, medications, Prescriptions given X 1. Signatures: Dispatcher [employer] EDMS Karthikeyan Quick1 Nura Martinez1 Fern Silva Rebecca, RN RN rb1 Junaid Lewis, GABRIEL CLAIMS EXAMINER pm1 Corrections: (The following items were deleted from the chart) 12:34 10:33 Reassessment: Assisted pt. on bedpan rb1 rb1 12:35 12:31 Patient left the ED. rb1 rb1
--- NOTE | 2018-10-26 11:59 | EDPHYS ---
Physician Documentation [facility] Name: Regina Velasquez Age: 83 yrs Sex: Female : 1935 Arrival Date: 10/26/2018 Time: 09:19 Bed 16 Private MD: ED Physician Tristan Munson HPI: 10/26 09:36 This 83 yrs old Female presents to ER via EMS with complaints of Back Pain. pm1 09:36 The patient presents with pain that is acute, with no known mechanism of injury. The pm1 symptoms are located in the low back. Onset: The symptoms/episode began/occurred yesterday. The pain does not radiate. Associated signs and symptoms: Pertinent negatives: dysuria, fever, numbness, tingling, vomiting, weakness. The problem was sustained from unknown cause. Modifying factors: The patient symptoms are alleviated by rest, the patient symptoms are aggravated by twisting hips. Severity of symptoms: in the emergency department the symptoms have improved. The patient has not recently seen a physician, the patient's primary care provider is Dr. Ta. Historical: - Allergies: 09:14 Strawberries; rb1 - Home Meds: 09:14 aspirin 81 mg Oral chew 1 tab once daily [Active]; Levothroid 100 mcg Oral tab 1 tab rb1 once daily [Active]; Omeprazole Oral [Active]; Prilosec Oral [Active]; - PMHx: 09:14 Gout; mass left breast; rb1 - PSHx: 09:14 back; Breast implants; Tubal ligation; rb1 - Immunization history:: Adult Immunizations up to date. - Social history:: Smoking status: Patient/guardian denies using tobacco. - Ebola Screening: : Patient negative for fever greater than or equal to 101.5 degrees Fahrenheit, and additional compatible Ebola Virus Disease symptoms. ROS: 09:36 Constitutional: Negative for fever, chills, and weight loss, Eyes: Negative for injury, pm1 pain, redness, and discharge, ENT: Negative for injury, pain, and discharge, Neck: Negative for injury, pain, and swelling, Cardiovascular: Negative for chest pain, palpitations, and edema, Respiratory: Negative for shortness of breath, cough, wheezing, and pleuritic chest pain, Abdomen/GI: Negative for abdominal pain, nausea, vomiting, diarrhea, and constipation. 09:36 : Negative for injury, bleeding, discharge, and swelling, MS/Extremity: Negative for injury and deformity, Skin: Negative for injury, rash, and discoloration, Neuro: Negative for headache, weakness, numbness, tingling, and seizure. 09:36 Back: Positive for pain with movement, of the low back area. Exam: 09:36 Constitutional: This is a well developed, well nourished patient who is awake, alert, pm1 and in no acute distress. Head/Face: Normocephalic, atraumatic. Eyes: Pupils equal round and reactive to light, extra-ocular motions intact. Lids and lashes normal. Conjunctiva and sclera are non-icteric and not injected. Cornea within normal limits. Periorbital areas with no swelling, redness, or edema. ENT: Nares patent. No nasal discharge, no septal abnormalities noted. Tympanic membranes are normal and external auditory canals are clear. Oropharynx with no redness, swelling, or masses, exudates, or evidence of obstruction, uvula midline. Mucous membranes moist. Neck: Trachea midline, no thyromegaly or masses palpated, and no cervical lymphadenopathy. Supple, full range of motion without nuchal rigidity, or vertebral point tenderness. No Meningismus. Chest/axilla: Normal chest wall appearance and motion. Nontender with no deformity. No lesions are appreciated. Cardiovascular: Regular rate and rhythm with a normal S1 and S2. No gallops, murmurs, or rubs. Normal PMI, no JVD. No pulse deficits. Respiratory: Lungs have equal breath sounds bilaterally, clear to auscultation and percussion. No rales, rhonchi or wheezes noted. No increased work of breathing, no retractions or nasal flaring. Abdomen/GI: Soft, non-tender, with normal bowel sounds. No distension or tympany. No guarding or rebound. No evidence of tenderness throughout. 09:36 Skin: Warm, dry with normal turgor. Normal color with no rashes, no lesions, and no evidence of cellulitis. MS/ Extremity: Pulses equal, no cyanosis. Neurovascular intact. Full, normal range of motion. 09:36 Back: vertebral tenderness, is not appreciated. 09:36 Neuro: Orientation: is normal, Motor: moves all fours, Sensation: is normal, no obvious gross deficits. Vital Signs: 09:14 BP 189 / 79; Pulse 66; Resp 17; Temp 98.6(O); Pulse Ox 100% on R/A; Weight 83.91 kg rb1 (R); Height 5 ft. 5 in. (165.10 cm) (R); Pain 0/10; 10:10 BP 183 / 79; Pulse 67; Resp 17; Temp 98.5(O); Pulse Ox 98% ; Pain 0/10; rb1 11:10 BP 182 / 77; Pulse 62; Resp 16; Temp 98.4(O); Pulse Ox 100% on R/A; Pain 0/10; rb1 12:10 BP 188 / 81; Pulse 69; Resp 16; Temp 98.6(O); Pulse Ox 100% on R/A; Pain 0/10; rb1 09:14 Body Mass Index 30.79 (83.91 kg, 165.10 cm) rb1 MDM: 09:[address] [facility] 11:55 Data reviewed: vital signs. Data interpreted: Pulse oximetry: on room air is 100 %. pm1 Interpretation: normal. Counseling: I had a detailed discussion with the patient and/or guardian regarding: the historical points, exam findings, and any diagnostic results supporting the discharge/admit diagnosis, radiology results, the need for outpatient follow up, for definitive care, a neurosurgeon, to return to the emergency department if symptoms worsen or persist or if there are any questions or concerns that arise at home. 10/26 10:32 Order name: Urine Dipstick--Ancillary (enter results) [facility] 10/26 10:33 Order name: Urine Microscopic Only; Complete Time: 11:12 em 10/26 09:26 Order name: Urine Dipstick-Ancillary (obtain specimen); Complete Time: 10:31 pm1 10/26 09:26 Order name: CT Stone Protocol; Complete Time: 11:18 pm1 Administered Medications: No medications were administered Disposition: 15:39 Co-signature as Attending Physician, Tristan Munson MD I agree with the assessment and [facility] plan of care. Disposition: 10/26/18 11:57 Discharged to Home. Impression: Low back pain, Compression fracture L5. - Condition is Stable. - Discharge Instructions: Back Pain, Adult, Spinal Compression Fracture. - Prescriptions for Tramadol 50 mg Oral Tablet - take 1 tablet by ORAL route every 8 hours as needed; 20 tablet. - Medication Reconciliation Form, Thank You Letter, Antibiotic Education, Prescription Opioid Use form. - Follow up: Emergency Department; When: As needed; Reason: Worsening of condition. Follow up: Private Physician; When: 2 - 3 days; Reason: Recheck today's complaints, Continuance of care, Re-evaluation by your physician. - Problem is new. - Symptoms have improved. Signatures: Dispatcher [employer] EDUT Tristan Munson MD MD cha Barber, Rebecca, RN RN rb1 Junaid Lewis, GABRIEL DENTAL HYGIENE PROFESSOR pm1 Corrections: (The following items were deleted from the chart) 12:31 11:57 10/26/2018 11:57 Discharged to Home. Impression: Low back pain; Compression rb1 fracture L5. Condition is Stable. Forms are Medication Reconciliation Form, Thank You Letter, Antibiotic Education, Prescription Opioid Use. Follow up: Emergency Department; When: As needed; Reason: Worsening of condition. Follow up: Private Physician; When: 2 - 3 days; Reason: Recheck today's complaints, Continuance of care, Re-evaluation by your physician. Problem is new. Symptoms have improved. pm1
[2018-10-26 12:41] VITALS: O2SAT 100
[2018-10-26 12:42] VITALS: BP 188/81; TEMP 98.6
[2018-10-26 16:21] LABS: Urine Blood NEGATIVE (NEG); Urine Glucose NEGATIVE (NEG); Urine Protein NEGATIVE (NEG); Urine Specific Gravity 1.015 (1.005-1.030)
== END 2018-10-26 12:31 | disposition home or self-care (01) ==
LOC: ER 09:15
DX: M48.56XA Collapsed vertebra, not elsewhere classified, lumbar region, initial encounter for fracture (principal); Z91.018 Allergy to other foods
CPT/HCPCS: 74176; 76377; 81003; 81015; 99284

== ENCOUNTER 2018-11-05 12:50 | Emergency (ER) | payer OTHER ==
--- OUTSIDE RECORDS SUMMARY | 2018-11-05 12:52 | XMS REPORT | Clinical Summary ---
:1935 Author Organization [facility] Address [address] [place] [address] Care Team Providers Name Role Phone Sharpmarcelle [...] Not on file Implants Implanted Type Area Licensed Social Worker Device Shelf Model / Serial / Identifier Expiration Lot Date Bone Chip Canc 1.7-10mm 30ml [id number] - [id number] Bone N/A: MUSCULOSKELETAL 03/27/2019 [id number] / Implanted: Qty: 1 on 08/11/2016 by Chase Renae MD Spine TRANSPLANT FND [id number] / Lumbar Tiss Live Puty Dbm Optium 10cc Tput10 - [id number] Bone N/A: LIFENET:LIFENET 01/28/2019 [id number] / Implanted: Qty: 1 on 08/11/2016 by Chase Renae MD Spine TRANSPLANT SRV / Lumbar [id number] Tiss Live Puty Dbm Optium 10cc Tput10 - [id number] Bone N/A: LIFENET:LIFENET 04/04/2019 TPUT10 / Implanted: Qty: 1 on 08/11/2016 by Chase Renae MD Spine TRANSPLANT SRV / Lumbar [id number] Matrix Floseal Hemo W/O Ndl 10 [id number] - [id number] Cement/F N/A: VINES: BIOSCI 12/23/2017 [id number] / Implanted: Qty: 1 on 08/11/2016 by Chase Renae MD iller/Ad Spine / hesive Lumbar [id number] Cement Ktmx Kyphx Hv-R C01b - [id number] Cement/F N/A: MEDTRONIC:SPINAL C01B / Implanted: Qty: 1 on 08/11/2016 by Chase Renae MD iller/Ad Spine BIOLOGICS / hesive Lumbar [id number] Cement Bone Kyphx Hv-R C01a - [id number] Cement/F N/A: MEDTRONIC:SPINAL C01A / Implanted: Qty: 1 on 08/11/2016 by Chase Renae MD iller/Ad Spine BIOLOGICS / hesive Lumbar [id number] Elia Harper Iii [id number] - [id number] Spine N/A: LUDIN:LUDIN [id number] / Implanted: Qty: 8 on 08/11/2016 by Chase Renae MD Spine SPINE / Lumbar Scr Polyaxial 5.5x45mm [id number] - [id number] Spine N/A: LUDIN:LUDIN [id number] / Implanted: Qty: 8 on 08/11/2016 by Chase Renae MD Spine SPINE / Lumbar [id number] Artem Harper 3 Titanium 480 [id number] - [id number] Spine N/A: LUDIN:LUDIN [id number] / Implanted: Qty: 2 on 08/11/2016 by Chase Renae MD Spine SPINE / Lumbar JBL Results Not on fileafter 11/04/2017 Insurance Payer Benefit Plan / Group Subscriber ID Type Phone Address MEDICARE MEDICARE A B xxxxxxxxxx Medicare FOR LIFE xxxxxxxxx Other Govt (, [place], [facility], etc.) (Home) [place] [address] Advance Directives For more information, please contact:[address] [phone] Code Status Date Activated Date Inactivated Comments Full Code 08/07/2016 5:39 AM 08/19/2016 2:48 PM This code status was determined by: Patient Full Code 05/03/2016 2:45 AM 05/09/2016 12:27 PM This code status was determined by: Patient
--- OUTSIDE RECORDS SUMMARY | 2018-11-05 12:54 | XMS REPORT ---
:1935 Author Organization [facility] Address [address] [place] [address] Dr. Constantino [address] [place] [id number] Care Team Providers Name Role Phone SARA [...] Value Reference Range Comments CULTURE (BEAKER) (test haws=8158) No growth in 5 days BLOOD [id number] 11:00:00 Test Item Value Reference Range Comments CULTURE (BEAKER) (test vrqj=5429) No growth in 5 days URINE [id number] 09:13:00 Test Item Value Reference Range Comments CULTURE (BEAKER) (test ENTEROCOCCUS SPECIES >100,000 col/mL mvsh=7402) Enterococcus species Ampicillin (test code=26) Ciprofloxacin (test code=7) Clindamycin (test code=10) Daptomycin (test code=59) Erythromycin (test code=4) Gentamicin (test code=18) Gentamicin High Level Synergy (test qtlx=514) Levofloxacin (test code=22) Linezolid (test code=40) Moxifloxacin (test code=36) Nitrofurantoin (test code=23) Oxacillin (test code=14) Rifampin (test code=43) Streptomycin High Level Synergy (test sdpj=385) Tetracycline (test code=2) Tigecycline (test gyes=566) Trimethoprim + Sulfamethoxazole (test code=47) Vancomycin (test code=13) URINALYSIS W/ [id number] 17:26:00 Test Item Value Reference Range Comments COLOR (BEAKER) (test ookq=611) Dark Yellow CLARITY (BEAKER) (test yjgv=623) Hazy SPECIFIC GRAVITY UA (BEAKER) (test bfiv=041) 1.026 1.001-1.035 PH UA (BEAKER) (test hqmv=390) 6.0 5.0-8.0 PROTEIN UA (BEAKER) (test ywsq=318) 30 mg/dL Negative GLUCOSE UA (BEAKER) (test mvox=511) Negative Negative KETONES UA (BEAKER) (test fldi=983) 10 mg/dL Negative BILIRUBIN UA (BEAKER) (test lvji=295) Negative Negative BLOOD UA (BEAKER) (test uawt=307) Negative Negative NITRITE UA (BEAKER) (test usxz=482) Negative Negative LEUKOCYTE ESTERASE UA (BEAKER) (test spqi=405) Large Negative UROBILINOGEN UA (BEAKER) (test opmk=729) 2.0 mg/dL 0.2-1.0 RBC UA (BEAKER) (test uukz=235) 2 /HPF WBC UA (BEAKER) (test fdun=565) 36 /HPF MUCUS (BEAKER) (test cevk=3403) Occasional SQUAMOUS EPITHELIAL (BEAKER) (test zusm=532) 12 /HPF SOURCE(BEAKER) (test elgt=3988) Urine, Voided HEPATIC FUNCTION [id number] 05:45:00 Test Item Value Reference Range Comments TOTAL PROTEIN (BEAKER) (test uonq=180) 5.5 gm/dL 6.0-8.3 ALBUMIN (BEAKER) (test gfbe=0813) 2.5 g/dL 3.5-5.0 BILIRUBIN TOTAL (BEAKER) (test nrdh=694) 0.6 mg/dL 0.2-1.2 BILIRUBIN DIRECT (BEAKER) (test qcph=962) 0.3 mg/dL 0.1-0.5 ALKALINE PHOSPHATASE (BEAKER) (test tbtc=407) 141 U/L 40-150 AST (SGOT) (BEAKER) (test ileo=841) 24 U/L 5-34 ALT (SGPT) (BEAKER) (test xhhj=281) 13 U/L 6-55 BASIC METABOLIC [id number] 05:45:00 Test Item Value Reference Range Comments SODIUM (BEAKER) (test 133 meq/L 136-145 ionz=942) POTASSIUM (BEAKER) (test 3.4 meq/L 3.5-5.1 tiih=935) CHLORIDE (BEAKER) (test 105 meq/L 98-107 ekga=439) CO2 (BEAKER) (test 21 meq/L 22-29 vsjz=431) BLOOD UREA NITROGEN 9 mg/dL 7-21 (BEAKER) (test qwlf=615) CREATININE (BEAKER) (test 0.49 mg/dL 0.57-1.25 hxbr=415) GLUCOSE RANDOM (BEAKER) 82 mg/dL 70-105 (test itcn=311) CALCIUM (BEAKER) (test 8.0 mg/dL 8.4-10.2 knsk=513) EGFR (BEAKER) (test 122 mL/min/1.73 sq m ESTIMATED GFR IS NOT zqrl=5482) ACCURATE CREATININE CLEARANCE IN PREDICTING GLOMERULAR FILTRATION RATE. ESTIMATED GFR IS NOT APPLICABLE FOR DIALYSIS PATIENTS. CBC W/PLT COUNT & AUTO [id number] 05:22:00 Test Item Value Reference Range Comments WHITE BLOOD CELL COUNT (BEAKER) (test hcky=567) 7.0 K/ L 4.0-10.0 RED BLOOD CELL COUNT (BEAKER) (test itni=770) 2.59 M/ L 4.00-5.00 HEMOGLOBIN (BEAKER) (test eodz=012) 9.6 GM/DL 12.0-15.0 HEMATOCRIT (BEAKER) (test jkzp=847) 27.4 % 36.0-45.0 MEAN CORPUSCULAR VOLUME (BEAKER) (test pbde=633) 106.0 fL 82.0-99.0 MEAN CORPUSCULAR HEMOGLOBIN (BEAKER) (test 37.1 pg 27.0-33.0 iouo=203) MEAN CORPUSCULAR HEMOGLOBIN CONC (BEAKER) (test 35.1 GM/DL 32.0-36.0 gkbt=704) RED CELL DISTRIBUTION WIDTH (BEAKER) (test 12.9 % 10.3-14.2 osli=041) PLATELET COUNT (BEAKER) (test sdvh=106) 108 K/CU MM 150-430 MEAN PLATELET VOLUME (BEAKER) (test ognu=436) 8.5 fL 6.5-10.5 NUCLEATED RED BLOOD CELLS (BEAKER) (test 0 /100 WBC 0-0 liwb=674) NEUTROPHILS RELATIVE PERCENT (BEAKER) (test 62 % zyuz=515) LYMPHOCYTES RELATIVE PERCENT (BEAKER) (test 25 % rdvd=572) MONOCYTES RELATIVE PERCENT (BEAKER) (test 10 % vnpl=655) EOSINOPHILS RELATIVE PERCENT (BEAKER) (test 4 % axga=527) BASOPHILS RELATIVE PERCENT (BEAKER) (test 0 % uwbs=332) NEUTROPHILS ABSOLUTE COUNT (BEAKER) (test 4.32 K/ L 1.80-8.00 dlnf=297) LYMPHOCYTES ABSOLUTE COUNT (BEAKER) (test 1.75 K/ L 1.48-4.50 fqro=861) MONOCYTES ABSOLUTE COUNT (BEAKER) (test 0.69 K/ L 0.00-1.30 ncjt=487) EOSINOPHILS ABSOLUTE COUNT (BEAKER) (test 0.26 K/ L 0.00-0.50 jake=055) BASOPHILS ABSOLUTE COUNT (BEAKER) (test 0.02 K/ L 0.00-0.20 mrng=943) 0.00HEPATIC FUNCTION [id number] 13:28:00 Test Item Value Reference Range Comments TOTAL PROTEIN (BEAKER) (test zftf=097) 5.9 gm/dL 6.0-8.3 ALBUMIN (BEAKER) (test afkh=8125) 2.8 g/dL 3.5-5.0 BILIRUBIN TOTAL (BEAKER) (test twma=040) 0.6 mg/dL 0.2-1.2 BILIRUBIN DIRECT (BEAKER) (test cetg=554) 0.3 mg/dL 0.1-0.5 ALKALINE PHOSPHATASE (BEAKER) (test cltj=835) 160 U/L 40-150 AST (SGOT) (BEAKER) (test jbny=103) 29 U/L 5-34 ALT (SGPT) (BEAKER) (test umyw=133) 13 U/L 6-55 BASIC METABOLIC [id number] 13:28:00 Test Item Value Reference Range Comments SODIUM (BEAKER) (test 136 meq/L 136-145 rlvv=940) POTASSIUM (BEAKER) (test 3.3 meq/L 3.5-5.1 dsbd=181) CHLORIDE (BEAKER) (test 105 meq/L 98-107 bsno=030) CO2 (BEAKER) (test 24 meq/L 22-29 ojoe=177) BLOOD UREA NITROGEN 8 mg/dL 7-21 (BEAKER) (test ecep=273) CREATININE (BEAKER) (test 0.47 mg/dL 0.57-1.25 uboe=961) GLUCOSE RANDOM (BEAKER) 86 mg/dL 70-105 (test nmdk=041) CALCIUM (BEAKER) (test 8.6 mg/dL 8.4-10.2 btqe=782) EGFR (BEAKER) (test 128 mL/min/1.73 sq m ESTIMATED GFR IS NOT xsnf=5309) ACCURATE CREATININE CLEARANCE IN PREDICTING GLOMERULAR FILTRATION RATE. ESTIMATED GFR IS NOT APPLICABLE FOR DIALYSIS PATIENTS. CBC W/PLT COUNT & AUTO [id number] 06:36:00 Test Item Value Reference Range Comments WHITE BLOOD CELL COUNT (BEAKER) (test ivhx=623) 7.4 K/ L 4.0-10.0 RED BLOOD CELL COUNT (BEAKER) (test armz=749) 2.47 M/ L 4.00-5.00 HEMOGLOBIN (BEAKER) (test gxbp=124) 10.4 GM/DL 12.0-15.0 HEMATOCRIT (BEAKER) (test ujqb=540) 26.3 % 36.0-45.0 MEAN CORPUSCULAR VOLUME (BEAKER) (test jczz=566) 107.0 fL 82.0-99.0 MEAN CORPUSCULAR HEMOGLOBIN (BEAKER) (test 42.0 pg 27.0-33.0 ginu=456) MEAN CORPUSCULAR HEMOGLOBIN CONC (BEAKER) (test 39.4 GM/DL 32.0-36.0 qwrb=623) RED CELL DISTRIBUTION WIDTH (BEAKER) (test 13.4 % 10.3-14.2 vwgm=694) PLATELET COUNT (BEAKER) (test zgue=414) 102 K/CU MM 150-430 MEAN PLATELET VOLUME (BEAKER) (test dmzg=638) 8.6 fL 6.5-10.5 NUCLEATED RED BLOOD CELLS (BEAKER) (test 0 /100 WBC 0-0 pfwx=200) NEUTROPHILS RELATIVE PERCENT (BEAKER) (test 61 % txwu=571) LYMPHOCYTES RELATIVE PERCENT (BEAKER) (test 24 % xety=756) MONOCYTES RELATIVE PERCENT (BEAKER) (test 13 % rrci=461) EOSINOPHILS RELATIVE PERCENT (BEAKER) (test 2 % pqjk=263) BASOPHILS RELATIVE PERCENT (BEAKER) (test 0 % gvhr=986) NEUTROPHILS ABSOLUTE COUNT (BEAKER) (test 4.50 K/ L 1.80-8.00 lgip=782) LYMPHOCYTES ABSOLUTE COUNT (BEAKER) (test 1.80 K/ L 1.48-4.50 gplj=597) MONOCYTES ABSOLUTE COUNT (BEAKER) (test 0.98 K/ L 0.00-1.30 kdfi=323) EOSINOPHILS ABSOLUTE COUNT (BEAKER) (test 0.12 K/ L 0.00-0.50 gfni=488) BASOPHILS ABSOLUTE COUNT (BEAKER) (test 0.02 K/ L 0.00-0.20 vcqw=882) 0.00URINE [id number] 10:37:00 Test Item Value Reference Range Comments CULTURE (BEAKER) (test ESCHERICHIA COLI 40-49,000 col/mL tjik=7975) Escherichia coli Amikacin (test code=1) Ampicillin + Sulbactam (test code=6) Aztreonam (test code=32) Cefazolin (test code=9) Cefepime (test code=51) Cefoxitin (test code=68) Ceftazidime (test code=27) Ceftriaxone (test code=52) Ertapenem (test code=38) Gentamicin (test code=18) Levofloxacin (test code=22) Meropenem (test code=34) Nitrofurantoin (test code=23) Piperacillin + Tazobactam (test code=29) Tetracycline (test code=2) Tigecycline (test vdvy=525) Tobramycin (test code=25) Trimethoprim + Sulfamethoxazole (test code=47) ALPHA FETOPROTEIN (AFP), TUMOR [id number] 05:15:00 Test Item Value Reference Range Comments ALPHA-FETOPROTEIN (BEAKER) (test ycsx=4835) 4.7 ng/mL <10.0 Effective 01/10/2014: Reference Range ChangeNew: <10.0 Previous: 0.0- 8.0CBC W/PLT COUNT & AUTO [id number] 05:11:00 Test Item Value Reference Range Comments WHITE BLOOD CELL COUNT (BEAKER) (test ocbf=306) 6.6 K/ L 4.0-10.0 RED BLOOD CELL COUNT (BEAKER) (test gkte=251) 2.81 M/ L 4.00-5.00 HEMOGLOBIN (BEAKER) (test oket=025) 10.4 GM/DL 12.0-15.0 HEMATOCRIT (BEAKER) (test sycw=986) 30.0 % 36.0-45.0 MEAN CORPUSCULAR VOLUME (BEAKER) (test tnvn=122) 107.0 fL 82.0-99.0 MEAN CORPUSCULAR HEMOGLOBIN (BEAKER) (test 36.9 pg 27.0-33.0 vunq=757) MEAN CORPUSCULAR HEMOGLOBIN CONC (BEAKER) (test 34.6 GM/DL 32.0-36.0 kjwe=138) RED CELL DISTRIBUTION WIDTH (BEAKER) (test 14.7 % 10.3-14.2 icor=240) PLATELET COUNT (BEAKER) (test qqhk=693) 97 K/CU MM 150-430 MEAN PLATELET VOLUME (BEAKER) (test iggd=857) 8.4 fL 6.5-10.5 NUCLEATED RED BLOOD CELLS (BEAKER) (test 0 /100 WBC 0-0 gmlq=546) NEUTROPHILS RELATIVE PERCENT (BEAKER) (test 64 % zeab=860) LYMPHOCYTES RELATIVE PERCENT (BEAKER) (test 21 % gzdq=500) MONOCYTES RELATIVE PERCENT (BEAKER) (test 13 % dqhi=290) EOSINOPHILS RELATIVE PERCENT (BEAKER) (test 2 % tquk=191) BASOPHILS RELATIVE PERCENT (BEAKER) (test 0 % sxpb=181) NEUTROPHILS ABSOLUTE COUNT (BEAKER) (test 4.20 K/ L 1.80-8.00 rpor=969) LYMPHOCYTES ABSOLUTE COUNT (BEAKER) (test 1.34 K/ L 1.48-4.50 ldip=561) MONOCYTES ABSOLUTE COUNT (BEAKER) (test fbpj=433) 0.83 K/ L 0.00-1.30 EOSINOPHILS ABSOLUTE COUNT (BEAKER) (test 0.14 K/ L 0.00-0.50 mexy=670) BASOPHILS ABSOLUTE COUNT (BEAKER) (test zhtv=902) 0.03 K/ L 0.00-0.20 0.00HEPATIC FUNCTION [id number] 05:08:00 Test Item Value Reference Range Comments TOTAL PROTEIN (BEAKER) (test ynzv=403) 5.6 gm/dL 6.0-8.3 ALBUMIN (BEAKER) (test qtzw=7701) 2.8 g/dL 3.5-5.0 BILIRUBIN TOTAL (BEAKER) (test pzxx=846) 0.8 mg/dL 0.2-1.2 BILIRUBIN DIRECT (BEAKER) (test iypl=355) 0.4 mg/dL 0.1-0.5 ALKALINE PHOSPHATASE (BEAKER) (test rmqp=834) 131 U/L 40-150 AST (SGOT) (BEAKER) (test tzht=562) 29 U/L 5-34 ALT (SGPT) (BEAKER) (test jzau=690) 10 U/L 6-55 BASIC METABOLIC [id number] 05:08:00 Test Item Value Reference Range Comments SODIUM (BEAKER) (test 136 meq/L 136-145 nvad=513) POTASSIUM (BEAKER) (test 3.3 meq/L 3.5-5.1 mvom=172) CHLORIDE (BEAKER) (test 107 meq/L 98-107 nyol=395) CO2 (BEAKER) (test 21 meq/L 22-29 mwxw=980) BLOOD UREA NITROGEN 7 mg/dL 7-21 (BEAKER) (test magl=267) CREATININE (BEAKER) (test 0.52 mg/dL 0.57-1.25 napx=683) GLUCOSE RANDOM (BEAKER) 89 mg/dL 70-105 (test wcwm=592) CALCIUM (BEAKER) (test 8.1 mg/dL 8.4-10.2 gbwl=786) EGFR (BEAKER) (test 113 mL/min/1.73 sq m ESTIMATED GFR IS NOT woiv=0965) ACCURATE CREATININE CLEARANCE IN PREDICTING GLOMERULAR FILTRATION RATE. ESTIMATED GFR IS NOT APPLICABLE FOR DIALYSIS PATIENTS. CBC W/PLT COUNT & AUTO [id number] 07:18:00 Test Item Value Reference Range Comments WHITE BLOOD CELL COUNT (BEAKER) (test xlwx=517) 4.7 K/ L 4.0-10.0 RED BLOOD CELL COUNT (BEAKER) (test lvnh=143) 2.84 M/ L 4.00-5.00 HEMOGLOBIN (BEAKER) (test kpnn=408) 10.3 GM/DL 12.0-15.0 HEMATOCRIT (BEAKER) (test lbpi=168) 30.5 % 36.0-45.0 MEAN CORPUSCULAR VOLUME (BEAKER) (test mvbd=792) 108.0 fL 82.0-99.0 MEAN CORPUSCULAR HEMOGLOBIN (BEAKER) (test 36.5 pg 27.0-33.0 jbzv=743) MEAN CORPUSCULAR HEMOGLOBIN CONC (BEAKER) (test 33.9 GM/DL 32.0-36.0 vdxc=479) RED CELL DISTRIBUTION WIDTH (BEAKER) (test 13.1 % 10.3-14.2 jvlb=242) PLATELET COUNT (BEAKER) (test wagc=760) 112 K/CU MM 150-430 MEAN PLATELET VOLUME (BEAKER) (test cpjy=133) 7.7 fL 6.5-10.5 NUCLEATED RED BLOOD CELLS (BEAKER) (test 0 /100 WBC 0-0 vfvx=541) NEUTROPHILS RELATIVE PERCENT (BEAKER) (test 61 % iabv=064) LYMPHOCYTES RELATIVE PERCENT (BEAKER) (test 24 % efkw=800) MONOCYTES RELATIVE PERCENT (BEAKER) (test 13 % lddz=219) EOSINOPHILS RELATIVE PERCENT (BEAKER) (test 1 % ouqd=194) BASOPHILS RELATIVE PERCENT (BEAKER) (test 1 % wexz=627) NEUTROPHILS ABSOLUTE COUNT (BEAKER) (test 2.89 K/ L 1.80-8.00 phqo=760) LYMPHOCYTES ABSOLUTE COUNT (BEAKER) (test 1.15 K/ L 1.48-4.50 lfas=810) MONOCYTES ABSOLUTE COUNT (BEAKER) (test 0.62 K/ L 0.00-1.30 iyws=496) EOSINOPHILS ABSOLUTE COUNT (BEAKER) (test 0.06 K/ L 0.00-0.50 sunh=600) BASOPHILS ABSOLUTE COUNT (BEAKER) (test 0.03 K/ L 0.00-0.20 kyru=107) 0.00VITAMIN D, 15-[id number] 07:07:00 Test Item Value Reference Range Comments VITAMIN D 25-OH (BEAKER) (test hact=2063) 36.0 ng/mL 13.0-47.8 BASIC METABOLIC [id number] 04:51:00 Test Item Value Reference Range Comments SODIUM (BEAKER) (test 137 meq/L 136-145 oxck=064) POTASSIUM (BEAKER) (test 3.9 meq/L 3.5-5.1 sbpx=350) CHLORIDE (BEAKER) (test 108 meq/L 98-107 jkhj=814) CO2 (BEAKER) (test 23 meq/L 22-29 wepk=815) BLOOD UREA NITROGEN 7 mg/dL 7-21 (BEAKER) (test pdac=681) CREATININE (BEAKER) (test 0.54 mg/dL 0.57-1.25 ecur=117) GLUCOSE RANDOM (BEAKER) 87 mg/dL 70-105 (test dxyo=475) CALCIUM (BEAKER) (test 8.0 mg/dL 8.4-10.2 apeu=722) EGFR (BEAKER) (test 109 mL/min/1.73 sq m ESTIMATED GFR IS NOT nrmp=3099) ACCURATE CREATININE CLEARANCE IN PREDICTING GLOMERULAR FILTRATION RATE. ESTIMATED GFR IS NOT APPLICABLE FOR DIALYSIS PATIENTS. BASIC METABOLIC [id number] 14:20:00 Test Item Value Reference Range Comments SODIUM (BEAKER) (test 137 meq/L 136-145 oxwx=423) POTASSIUM (BEAKER) (test 3.4 meq/L 3.5-5.1 nmyk=667) CHLORIDE (BEAKER) (test 106 meq/L 98-107 hrya=195) CO2 (BEAKER) (test 21 meq/L 22-29 hcxj=600) BLOOD UREA NITROGEN 7 mg/dL 7-21 (BEAKER) (test rewo=392) CREATININE (BEAKER) (test 0.61 mg/dL 0.57-1.25 ohds=182) GLUCOSE RANDOM (BEAKER) 158 mg/dL 70-105 (test chwh=978) CALCIUM (BEAKER) (test 8.0 mg/dL 8.4-10.2 ktgd=222) EGFR (BEAKER) (test 94 mL/min/1.73 sq m ESTIMATED GFR IS NOT krjz=5017) ACCURATE CREATININE CLEARANCE IN PREDICTING GLOMERULAR FILTRATION RATE. ESTIMATED GFR IS NOT APPLICABLE FOR DIALYSIS PATIENTS. URINALYSIS W/ [id number] 14:18:00 Test Item Value Reference Range Comments COLOR (BEAKER) (test bthp=401) Yellow CLARITY (BEAKER) (test adqu=013) Cloudy SPECIFIC GRAVITY UA (BEAKER) (test opvt=875) 1.015 1.001-1.035 PH UA (BEAKER) (test npzp=269) 5.5 5.0-8.0 PROTEIN UA (BEAKER) (test xetn=299) 20 mg/dL Negative GLUCOSE UA (BEAKER) (test heal=671) Negative Negative KETONES UA (BEAKER) (test eqek=908) 40 mg/dL Negative BILIRUBIN UA (BEAKER) (test ardd=850) Negative Negative BLOOD UA (BEAKER) (test hwdm=574) Moderate Negative NITRITE UA (BEAKER) (test kegh=108) Negative Negative LEUKOCYTE ESTERASE UA (BEAKER) (test nhce=669) Large Negative UROBILINOGEN UA (BEAKER) (test nuyi=620) 0.2 mg/dL 0.2-1.0 RBC UA (BEAKER) (test miiw=983) 23 /HPF WBC UA (BEAKER) (test vbjj=065) > /HPF BACTERIA (BEAKER) (test lfjj=288) Many MUCUS (BEAKER) (test avfb=1601) Few SQUAMOUS EPITHELIAL (BEAKER) (test gmbb=664) 1 /HPF HYALINE CASTS (BEAKER) (test jhes=596) 10 /LPF SOURCE(BEAKER) (test fbde=2064) Urine, [place] CBC W/PLT COUNT & AUTO [id number] 14:16:00 Test Item Value Reference Range Comments WHITE BLOOD CELL COUNT (BEAKER) (test wwte=191) 3.8 K/ L 4.0-10.0 RED BLOOD CELL COUNT (BEAKER) (test zady=437) 3.16 M/ L 4.00-5.00 HEMOGLOBIN (BEAKER) (test tutz=683) 11.3 GM/DL 12.0-15.0 HEMATOCRIT (BEAKER) (test kdtx=713) 33.6 % 36.0-45.0 MEAN CORPUSCULAR VOLUME (BEAKER) (test facz=389) 106.0 fL 82.0-99.0 MEAN CORPUSCULAR HEMOGLOBIN (BEAKER) (test 35.8 pg 27.0-33.0 dnfo=157) MEAN CORPUSCULAR HEMOGLOBIN CONC (BEAKER) (test 33.7 GM/DL 32.0-36.0 zaze=525) RED CELL DISTRIBUTION WIDTH (BEAKER) (test 14.4 % 10.3-14.2 tsyo=380) PLATELET COUNT (BEAKER) (test swye=120) 100 K/CU MM 150-430 MEAN PLATELET VOLUME (BEAKER) (test nuyr=778) 7.7 fL 6.5-10.5 NUCLEATED RED BLOOD CELLS (BEAKER) (test 0 /100 WBC 0-0 qjeq=860) NEUTROPHILS RELATIVE PERCENT (BEAKER) (test 84 % tipt=961) LYMPHOCYTES RELATIVE PERCENT (BEAKER) (test 12 % oljh=668) MONOCYTES RELATIVE PERCENT (BEAKER) (test 3 % vdxb=968) EOSINOPHILS RELATIVE PERCENT (BEAKER) (test 1 % jjkr=502) BASOPHILS RELATIVE PERCENT (BEAKER) (test 0 % khkr=267) NEUTROPHILS ABSOLUTE COUNT (BEAKER) (test 3.16 K/ L 1.80-8.00 gejl=004) LYMPHOCYTES ABSOLUTE COUNT (BEAKER) (test 0.46 K/ L 1.48-4.50 emgo=553) MONOCYTES ABSOLUTE COUNT (BEAKER) (test 0.11 K/ L 0.00-1.30 fbuj=318) EOSINOPHILS ABSOLUTE COUNT (BEAKER) (test 0.02 K/ L 0.00-0.50 cqzf=125) BASOPHILS ABSOLUTE COUNT (BEAKER) (test 0.00 K/ L 0.00-0.20 qewk=975) 0.00IMMUNOFIXATION ELECTROPHORESIS (MARCO)[id number] 14:13:00 Test Item Value Reference Range Comments IMMUNOGLOBULIN G (IGG) 1073 mg/dL 751-1560 (BEAKER) (test gevd=594) IMMUNOGLOBULIN A (IGA) 604 mg/dL 82-453 (BEAKER) (test bflk=990) IMMUNOGLOBULIN M (IGM) 152 mg/dL 46-304 (BEAKER) (test ufdl=652) SERUM MARCO ID (BEAKER) (test IgA-kappa, monoclonal; unnr=6815) IgG-lambda monoclonal (Note: monoclonal proteins are small in concentration; majority of immunoglobulin present is polyclonal in nature.) [id number] (BEAKER) Joseline Alvarado MD (test crdd=3210) (electronic signature) PROTEIN ELECTROPHORESIS, [id number] 13:57:00 Test Item Value Reference Range Comments ALBUMIN FRACTION (BEAKER) 2.7 g/dL 3.5-5.5 (test fmgq=174) ALPHA 1 FRACTION (BEAKER) 0.3 g/dL 0.2-0.4 (test yuuv=143) ALPHA 2 FRACTION (BEAKER) 0.6 g/dL 0.5-0.9 (test kszv=301) BETA FRACTION (BEAKER) (test 0.8 g/dL 0.6-1.1 zdvr=325) GAMMA GLOBULIN FRACTION 1.3 g/dL 0.7-1.7 (BEAKER) (test juso=532) INTERPRETATION-119 (BEAKER) Decreased albumin and slight (test pbxb=0794) beta-gamma bridging, consistent with hepatic dysfunction. Small restrictions present in gamma region; serum MARCO ordered for further characterization. [id number] Joseline Alvarado MD (BEAKER) (test wbfv=6228) (electronic signature) PROTEIN TOTAL SERUM, SPEP 5.6 gm/dL 6.0-8.3 (BEAKER) (test cuch=4107) CBC W/PLT COUNT & AUTO [id number] 12:30:00 Test Item Value Reference Range Comments WHITE BLOOD CELL COUNT (BEAKER) (test edrj=068) 3.4 K/ L 4.0-10.0 RED BLOOD CELL COUNT (BEAKER) (test pkpl=513) 3.38 M/ L 4.00-5.00 HEMOGLOBIN (BEAKER) (test tqhk=432) 11.9 GM/DL 12.0-15.0 HEMATOCRIT (BEAKER) (test syve=592) 35.4 % 36.0-45.0 MEAN CORPUSCULAR VOLUME (BEAKER) (test ocwt=804) 105.0 fL 82.0-99.0 MEAN CORPUSCULAR HEMOGLOBIN (BEAKER) (test 35.2 pg 27.0-33.0 whvx=889) MEAN CORPUSCULAR HEMOGLOBIN CONC (BEAKER) (test 33.6 GM/DL 32.0-36.0 auvx=602) RED CELL DISTRIBUTION WIDTH (BEAKER) (test 13.0 % 10.3-14.2 qqae=470) PLATELET COUNT (BEAKER) (test gemt=663) 110 K/CU MM 150-430 MEAN PLATELET VOLUME (BEAKER) (test qxll=797) 7.7 fL 6.5-10.5 NUCLEATED RED BLOOD CELLS (BEAKER) (test 0 /100 WBC 0-0 jhbx=438) NEUTROPHILS RELATIVE PERCENT (BEAKER) (test 78 % ntux=699) LYMPHOCYTES RELATIVE PERCENT (BEAKER) (test 15 % uofe=238) MONOCYTES RELATIVE PERCENT (BEAKER) (test 5 % xslw=873) EOSINOPHILS RELATIVE PERCENT (BEAKER) (test 2 % txhv=025) BASOPHILS RELATIVE PERCENT (BEAKER) (test 0 % wkja=851) NEUTROPHILS ABSOLUTE COUNT (BEAKER) (test 2.67 K/ L 1.80-8.00 ktdz=359) LYMPHOCYTES ABSOLUTE COUNT (BEAKER) (test 0.51 K/ L 1.48-4.50 uydb=108) MONOCYTES ABSOLUTE COUNT (BEAKER) (test 0.17 K/ L 0.00-1.30 tubk=571) EOSINOPHILS ABSOLUTE COUNT (BEAKER) (test 0.06 K/ L 0.00-0.50 rjsq=294) BASOPHILS ABSOLUTE COUNT (BEAKER) (test 0.01 K/ L 0.00-0.20 etik=816) 0.00GLUCOSE-STAT [id number] 10:51:00 Test Item Value Reference Range Comments GLUCOSE RANDOM (BEAKER) (test qtzi=294) 106 mg/dL 70-110 SODIUM NA-STAT [id number] 10:51:00 Test Item Value Reference Range Comments SODIUM (BEAKER) (test hkzg=436) 136 meq/L 135-148 BLOOD GAS, [id number] 10:51:00 Test Item Value Reference Range Comments PH ARTERIAL (BEAKER) (test igua=526) 7.41 7.35-7.45 PCO2 ARTERIAL (BEAKER) (test fiif=405) 38 mmHg 35-45 PO2 ARTERIAL (BEAKER) (test wwto=116) 243 mmHg 80-90 O2 SATURATION ARTERIAL (BEAKER) (test nqlz=502) 99.6 % 96.0-97.0 HCO3 ARTERIAL (BEAKER) (test kkyk=565) 24 mmol/L 21-29 BASE EXCESS ARTERIAL (BEAKER) (test quej=710) -0.7 mmol/L -2.0-3.0 PATIENT TEMPERATURE (BEAKER) (test qiue=2517) 37.0 C FIO2 (BEAKER) (test okcc=2945) 100.0 % HGB/HCT (H&H) - STAT [id number] 10:51:00 Test Item Value Reference Range Comments HEMOGLOBIN (BEAKER) (test tcfu=168) 11.6 g/dL 12.0-15.0 HEMATOCRIT (BEAKER) (test ouoi=105) 34.0 % 36.0-45.0 POTASSIUM-STAT [id number] 10:51:00 Test Item Value Reference Range Comments POTASSIUM (BEAKER) (test gjrg=650) 3.1 meq/L 3.6-5.5 CALCIUM, [id number] 10:51:00 Test Item Value Reference Range Comments CALCIUM IONIZED (BEAKER) (test znfy=568) 1.06 mmol/L 1.12-1.27 PH, BLOOD (BEAKER) (test sbbo=3889) 7.41 [id number] 10:13:00 Test Item Value Reference Range Comments HAPTOGLOBIN (BEAKER) (test bkeu=326) 119 mg/dL 14-258 Effective 01/10/2014: Reference Range ChangeNew: 14- Previous: 36-195CBC W/ PLT COUNT & AUTO [id number] 08:03:00 Test Item Value Reference Range Comments WHITE BLOOD CELL COUNT (BEAKER) (test eufh=065) 3.1 K/ L 4.0-10.0 RED BLOOD CELL COUNT (BEAKER) (test keta=087) 4.32 M/ L 4.00-5.00 HEMOGLOBIN (BEAKER) (test lwmp=732) 14.8 GM/DL 12.0-15.0 HEMATOCRIT (BEAKER) (test tabf=919) 46.6 % 36.0-45.0 MEAN CORPUSCULAR VOLUME (BEAKER) (test ihrr=762) 108.0 fL 82.0-99.0 MEAN CORPUSCULAR HEMOGLOBIN (BEAKER) (test 34.3 pg 27.0-33.0 eupm=223) MEAN CORPUSCULAR HEMOGLOBIN CONC (BEAKER) (test 31.9 GM/DL 32.0-36.0 zjiz=359) RED CELL DISTRIBUTION WIDTH (BEAKER) (test 14.9 % 10.3-14.2 opip=215) PLATELET COUNT (BEAKER) (test gdft=943) 88 K/CU MM 150-430 MEAN PLATELET VOLUME (BEAKER) (test ukcu=810) 8.5 fL 6.5-10.5 NUCLEATED RED BLOOD CELLS (BEAKER) (test 0 /100 WBC 0-0 zjgl=796) NEUTROPHILS RELATIVE PERCENT (BEAKER) (test 67 % wsrd=435) LYMPHOCYTES RELATIVE PERCENT (BEAKER) (test 24 % hepg=660) MONOCYTES RELATIVE PERCENT (BEAKER) (test 2 % jqet=179) EOSINOPHILS RELATIVE PERCENT (BEAKER) (test 6 % nnfg=007) BASOPHILS RELATIVE PERCENT (BEAKER) (test 0 % mkfo=233) NEUTROPHILS ABSOLUTE COUNT (BEAKER) (test 2.04 K/ L 1.80-8.00 zhac=295) LYMPHOCYTES ABSOLUTE COUNT (BEAKER) (test 0.74 K/ L 1.48-4.50 fppi=706) MONOCYTES ABSOLUTE COUNT (BEAKER) (test vhnf=181) 0.07 K/ L 0.00-1.30 EOSINOPHILS ABSOLUTE COUNT (BEAKER) (test 0.19 K/ L 0.00-0.50 mybu=355) BASOPHILS ABSOLUTE COUNT (BEAKER) (test ufzb=915) 0.01 K/ L 0.00-0.20 0.000.500.000.000.000.000.000.000.000.000.000.000.000.000.000.000.000.000.000.00 0.000.500.000.000.000.000.00 (MANUAL DIFFERENTIAL)2016-08-11 08:03:00 Test Item Value Reference Range Comments TOTAL COUNTED (BEAKER) (test fmtq=2997) WBC MORPHOLOGY (BEAKER) (test pseq=323) Normal PLT MORPHOLOGY (BEAKER) (test myqz=239) Normal RBC MORPHOLOGY (BEAKER) (test skyk=592) Normal BASIC METABOLIC [id number] 05:10:00 Test Item Value Reference Range Comments SODIUM (BEAKER) (test 136 meq/L 136-145 rbuo=961) POTASSIUM (BEAKER) (test 3.8 meq/L 3.5-5.1 kpqs=353) CHLORIDE (BEAKER) (test 100 meq/L 98-107 wcnx=756) CO2 (BEAKER) (test 26 meq/L 22-29 ufdy=729) BLOOD UREA NITROGEN 7 mg/dL 7-21 (BEAKER) (test hwvm=360) CREATININE (BEAKER) (test 0.62 mg/dL 0.57-1.25 mxhy=192) GLUCOSE RANDOM (BEAKER) 75 mg/dL 70-105 (test oehk=468) CALCIUM (BEAKER) (test 9.7 mg/dL 8.4-10.2 sqit=982) EGFR (BEAKER) (test 93 mL/min/1.73 sq m ESTIMATED GFR IS NOT tklx=5115) ACCURATE CREATININE CLEARANCE IN PREDICTING GLOMERULAR FILTRATION RATE. ESTIMATED GFR IS NOT APPLICABLE FOR DIALYSIS PATIENTS. PLATELET [id number] 17:22:00 Test Item Value Reference Range Comments PLATELET COUNT (BEAKER) (test acjz=038) 62 K/CU MM 150-430 Performed on a blue top tubePROTHROMBIN [id number] 14:25:00 Test Item Value Reference Range Comments PROTIME (BEAKER) (test skqp=388) 14.1 seconds 11.7-14.7 INR (BEAKER) (test oolo=211) 1.1 <=5.9 RECOMMENDED COUMADIN/WARFARIN INR THERAPY RANGESSTANDARD DOSE: 2.0 - 3.0 Includes: PROPHYLAXIS forvenous thrombosis, systemic embolization; TREATMENT for venous thrombosis and/or pulmonary embolus.HIGH RISK: Target INR is 2.5-3.5 for patients with mechanical heart valves.HEPATIC FUNCTION [id number] 14:02 :00 Test Item Value Reference Range Comments TOTAL PROTEIN (BEAKER) (test wsdv=900) 6.8 gm/dL 6.0-8.3 ALBUMIN (BEAKER) (test wrqk=1380) 3.2 g/dL 3.5-5.0 BILIRUBIN TOTAL (BEAKER) (test ykhl=159) 0.8 mg/dL 0.2-1.2 BILIRUBIN DIRECT (BEAKER) (test nnsg=152) 0.4 mg/dL 0.1-0.5 ALKALINE PHOSPHATASE (BEAKER) (test hhzl=579) 172 U/L 40-150 AST (SGOT) (BEAKER) (test uavz=135) 38 U/L 5-34 ALT (SGPT) (BEAKER) (test jdjn=664) 19 U/L 6-55 PERIPHERAL BLOOD SMEAR - HOLD [id number] 11:16:00 Test Item Value Reference Range Comments PERIPHERAL SMEAR SAVE (BEAKER) (test zyof=2387) saved CBC (HEMOGRAM ONLY)2016-08-10 10:18:00 Test Item Value Reference Range Comments WHITE BLOOD CELL COUNT (BEAKER) (test egss=298) 3.3 K/ L 4.0-10.0 RED BLOOD CELL COUNT (BEAKER) (test lggi=533) 3.63 M/ L 4.00-5.00 HEMOGLOBIN (BEAKER) (test jvvf=496) 13.0 GM/DL 12.0-15.0 HEMATOCRIT (BEAKER) (test revx=641) 38.9 % 36.0-45.0 MEAN CORPUSCULAR VOLUME (BEAKER) (test zxsy=477) 107.0 fL 82.0-99.0 MEAN CORPUSCULAR HEMOGLOBIN (BEAKER) (test 35.8 pg 27.0-33.0 hzrp=637) MEAN CORPUSCULAR HEMOGLOBIN CONC (BEAKER) (test 33.5 GM/DL 32.0-36.0 wmse=604) RED CELL DISTRIBUTION WIDTH (BEAKER) (test 14.7 % 10.3-14.2 hqjz=891) PLATELET COUNT (BEAKER) (test xcrc=240) 85 K/CU MM 150-430 MEAN PLATELET VOLUME (BEAKER) (test cbrm=461) 7.8 fL 6.5-10.5 NUCLEATED RED BLOOD CELLS (BEAKER) (test 0 /100 WBC 0-0 olpp=202) 0.00CBC W/PLT COUNT & AUTO [id number] 09:44:00 Test Item Value Reference Range Comments WHITE BLOOD CELL COUNT (BEAKER) (test cbpz=048) 3.2 K/ L 4.0-10.0 RED BLOOD CELL COUNT (BEAKER) (test adrq=113) 3.80 M/ L 4.00-5.00 HEMOGLOBIN (BEAKER) (test sssx=529) 12.7 GM/DL 12.0-15.0 HEMATOCRIT (BEAKER) (test jtsh=283) 41.0 % 36.0-45.0 MEAN CORPUSCULAR VOLUME (BEAKER) (test ropi=307) 108.0 fL 82.0-99.0 MEAN CORPUSCULAR HEMOGLOBIN (BEAKER) (test 33.5 pg 27.0-33.0 yoxe=902) MEAN CORPUSCULAR HEMOGLOBIN CONC (BEAKER) (test 31.1 GM/DL 32.0-36.0 dymc=475) RED CELL DISTRIBUTION WIDTH (BEAKER) (test 13.4 % 10.3-14.2 ocxi=856) PLATELET COUNT (BEAKER) (test hery=803) 103 K/CU MM 150-430 MEAN PLATELET VOLUME (BEAKER) (test gujc=452) 8.7 fL 6.5-10.5 NUCLEATED RED BLOOD CELLS (BEAKER) (test 0 /100 WBC 0-0 qjgk=212) NEUTROPHILS RELATIVE PERCENT (BEAKER) (test 42 % nzwa=674) LYMPHOCYTES RELATIVE PERCENT (BEAKER) (test 41 % keuh=764) MONOCYTES RELATIVE PERCENT (BEAKER) (test 9 % krrq=012) EOSINOPHILS RELATIVE PERCENT (BEAKER) (test 7 % rojc=321) BASOPHILS RELATIVE PERCENT (BEAKER) (test 1 % wvrv=073) NEUTROPHILS ABSOLUTE COUNT (BEAKER) (test 1.33 K/ L 1.80-8.00 akwk=423) LYMPHOCYTES ABSOLUTE COUNT (BEAKER) (test 1.30 K/ L 1.48-4.50 enxg=494) MONOCYTES ABSOLUTE COUNT (BEAKER) (test 0.28 K/ L 0.00-1.30 wiqh=691) EOSINOPHILS ABSOLUTE COUNT (BEAKER) (test 0.23 K/ L 0.00-0.50 rgkj=271) BASOPHILS ABSOLUTE COUNT (BEAKER) (test 0.03 K/ L 0.00-0.20 dqwk=239) 0.00BASI METABOLIC [id number] 06:57:00 Test Item Value Reference Range Comments SODIUM (BEAKER) (test 139 meq/L 136-145 tenb=622) POTASSIUM (BEAKER) (test 3.7 meq/L 3.5-5.1 xrpx=039) CHLORIDE (BEAKER) (test 105 meq/L 98-107 qeos=529) CO2 (BEAKER) (test 27 meq/L 22-29 awdb=233) BLOOD UREA NITROGEN 7 mg/dL 7-21 (BEAKER) (test qgur=480) CREATININE (BEAKER) (test 0.51 mg/dL 0.57-1.25 ezwj=563) GLUCOSE RANDOM (BEAKER) 76 mg/dL 70-105 (test boae=924) CALCIUM (BEAKER) (test 8.8 mg/dL 8.4-10.2 hclt=742) EGFR (BEAKER) (test 116 mL/min/1.73 sq m ESTIMATED GFR IS NOT nikp=2438) ACCURATE CREATININE CLEARANCE IN PREDICTING GLOMERULAR FILTRATION RATE. ESTIMATED GFR IS NOT APPLICABLE FOR DIALYSIS PATIENTS. HEPATITIS PANEL, [id number] 20:30:00 Test Item Value Reference Range Comments HEPATITIS A IGM ANTIBODY (BEAKER) (test Nonreactive Nonreactive gmzx=810) HEPATITIS B CORE IGM ANTIBODY (BEAKER) (test Nonreactive Nonreactive bcvu=659) HEPATITIS C ANTIBODY (BEAKER) (test gpog=958) Nonreactive Nonreactive HEPATITIS B SURFACE ANTIGEN (2) (BEAKER) (test Nonreactive Nonreactive tnrj=7826) [id number] 18:19:00 Test Item Value Reference Range Comments FIBRINOGEN LEVEL (BEAKER) (test lumq=763) 319 mg/dl 225-434 CBC W/PLT COUNT & AUTO [id number] 11:50:00 Test Item Value Reference Range Comments WHITE BLOOD CELL COUNT (BEAKER) (test ubui=212) 4.5 K/ L 4.0-10.0 RED BLOOD CELL COUNT (BEAKER) (test wbzb=151) 3.67 M/ L 4.00-5.00 HEMOGLOBIN (BEAKER) (test kdzj=411) 13.1 GM/DL 12.0-15.0 HEMATOCRIT (BEAKER) (test guft=587) 40.6 % 36.0-45.0 MEAN CORPUSCULAR VOLUME (BEAKER) (test yadb=097) 111.0 fL 82.0-99.0 MEAN CORPUSCULAR HEMOGLOBIN (BEAKER) (test 35.8 pg 27.0-33.0 omcm=132) MEAN CORPUSCULAR HEMOGLOBIN CONC (BEAKER) (test 32.3 GM/DL 32.0-36.0 nida=272) RED CELL DISTRIBUTION WIDTH (BEAKER) (test 13.3 % 10.3-14.2 fplo=111) PLATELET COUNT (BEAKER) (test mhno=524) 79 K/CU MM 150-430 MEAN PLATELET VOLUME (BEAKER) (test ymxa=765) 9.1 fL 6.5-10.5 NUCLEATED RED BLOOD CELLS (BEAKER) (test 0 /100 WBC 0-0 bhju=171) NEUTROPHILS RELATIVE PERCENT (BEAKER) (test 31 % ltmn=145) LYMPHOCYTES RELATIVE PERCENT (BEAKER) (test 53 % qmzr=269) MONOCYTES RELATIVE PERCENT (BEAKER) (test 9 % ijkc=344) EOSINOPHILS RELATIVE PERCENT (BEAKER) (test 7 % keym=040) BASOPHILS RELATIVE PERCENT (BEAKER) (test 1 % nnlp=383) NEUTROPHILS ABSOLUTE COUNT (BEAKER) (test 1.37 K/ L 1.80-8.00 odmh=303) LYMPHOCYTES ABSOLUTE COUNT (BEAKER) (test 2.35 K/ L 1.48-4.50 ibvx=294) MONOCYTES ABSOLUTE COUNT (BEAKER) (test jthw=409) 0.42 K/ L 0.00-1.30 EOSINOPHILS ABSOLUTE COUNT (BEAKER) (test 0.29 K/ L 0.00-0.50 hjig=372) BASOPHILS ABSOLUTE COUNT (BEAKER) (test nsyu=376) 0.04 K/ L 0.00-0.20 0.000.500.000.000.000.000.000.000.000.000.000.000.000.000.000.000.000.000.000.00 0.000.000.000.000.000.000.00 (MANUAL DIFFERENTIAL)2016-08-09 11:50:00 Test Item Value Reference Range Comments TOTAL COUNTED (BEAKER) (test rzpo=3507) WBC MORPHOLOGY (BEAKER) (test pepe=211) Normal LARGE PLT(BEAKER) (test qozn=8574) Present ANISOCYTOSIS (BEAKER) (test tycd=124) 1+ few POIKILOCYTES (BEAKER) (test aagq=584) 1+ few BASIC METABOLIC [id number] 04:54:00 Test Item Value Reference Range Comments SODIUM (BEAKER) (test 138 meq/L 136-145 rizh=277) POTASSIUM (BEAKER) (test 3.8 meq/L 3.5-5.1 kjyt=912) CHLORIDE (BEAKER) (test 106 meq/L 98-107 ntms=598) CO2 (BEAKER) (test 25 meq/L 22-29 idzi=396) BLOOD UREA NITROGEN 8 mg/dL 7-21 (BEAKER) (test rmxq=810) CREATININE (BEAKER) (test 0.51 mg/dL 0.57-1.25 pceb=677) GLUCOSE RANDOM (BEAKER) 79 mg/dL 70-105 (test phed=114) CALCIUM (BEAKER) (test 8.4 mg/dL 8.4-10.2 gbkx=198) EGFR (BEAKER) (test 116 mL/min/1.73 sq m ESTIMATED GFR IS NOT frlp=2595) ACCURATE CREATININE CLEARANCE IN PREDICTING GLOMERULAR FILTRATION RATE. ESTIMATED GFR IS NOT APPLICABLE FOR DIALYSIS PATIENTS. RETICULOCYTE [id number] 15:13:00 Test Item Value Reference Range Comments RETICULOCYTE COUNT PCT (BEAKER) (test fvtz=956) 3.8 % 0.4-2.9 LACTATE DEHYDROGENASE (LDH)2016-08-08 15:12:00 Test Item Value Reference Range Comments LACTATE DEHYDROGENASE (BEAKER) (test fquz=589) 146 U/L 125-220 CBC W/PLT COUNT & AUTO [id number] 11:10:00 Test Item Value Reference Range Comments WHITE BLOOD CELL COUNT (BEAKER) (test bbhx=397) 3.7 K/ L 4.0-10.0 RED BLOOD CELL COUNT (BEAKER) (test pipc=086) 4.27 M/ L 4.00-5.00 HEMOGLOBIN (BEAKER) (test ulti=594) 14.5 GM/DL 12.0-15.0 HEMATOCRIT (BEAKER) (test hkbn=896) 46.2 % 36.0-45.0 MEAN CORPUSCULAR VOLUME (BEAKER) (test when=541) 108.0 fL 82.0-99.0 MEAN CORPUSCULAR HEMOGLOBIN (BEAKER) (test 34.1 pg 27.0-33.0 jvue=028) MEAN CORPUSCULAR HEMOGLOBIN CONC (BEAKER) (test 31.5 GM/DL 32.0-36.0 rlcf=548) RED CELL DISTRIBUTION WIDTH (BEAKER) (test 15.0 % 10.3-14.2 bgnm=229) PLATELET COUNT (BEAKER) (test mvvh=185) 34 K/CU MM 150-430 MEAN PLATELET VOLUME (BEAKER) (test kchg=532) 6.3 fL 6.5-10.5 NUCLEATED RED BLOOD CELLS (BEAKER) (test 0 /100 WBC 0-0 xujb=870) 0.00(MANUAL DIFFERENTIAL)2016-08-08 11:10:00 Test Item Value Reference Range Comments NEUTROPHILS - REL (DIFF) (BEAKER) (test beky=9237) 43 % LYMPHOCYTES - REL (DIFF) (BEAKER) (test pzsi=9028) 45 % MONOCYTES - REL (DIFF) (BEAKER) (test rpmr=1417) 8 % EOSINOPHILS - REL (DIFF) (BEAKER) (test aegl=0592) 1 % BANDS - REL (DIFF) (BEAKER) (test qooi=9018) 3 % 0-10 NEUTROPHILS - ABS (DIFF) (BEAKER) (test khop=0085) 1.59 K/ L 1.80-8.00 LYMPHOCYTES - ABS (DIFF) (BEAKER) (test tdtg=7078) 1.67 K/ L 1.48-4.50 MONOCYTES - ABS (DIFF) (BEAKER) (test rslr=8958) 0.30 K/ L 0.00-1.30 EOSINOPHILS - ABS (DIFF) (BEAKER) (test bodn=5866) 0.04 K/ L 0.00-0.50 BANDS-ABS (DIFF) (BEAKER) (test gsgs=4194) 0.1 K/ L 0.0-0.8 TOTAL COUNTED (BEAKER) (test ovex=6952) 100 BANDS + SEGMENTED NEUTROPHILS (BEAKER) (test 1.70 vvke=9126) WBC MORPHOLOGY (BEAKER) (test dalo=467) Normal PLT MORPHOLOGY (BEAKER) (test kgog=189) Normal RBC MORPHOLOGY (BEAKER) (test yeas=342) Normal VITAMIN B12 AND [id number] 07:29:00 Test Item Value Reference Range Comments VITAMIN B12 (BEAKER) (test nvoe=960) 486 pg/mL 213-816 FOLATE (BEAKER) (test zdis=048) 17.2 ng/mL >=7.0 Effective 01/10/2014: Folate Reference Range ChangeNew: >=7.0 Previous: & gt;=5.4BASIC METABOLIC [id number] 07:05:00 Test Item Value Reference Range Comments SODIUM (BEAKER) (test 136 meq/L 136-145 dmha=256) POTASSIUM (BEAKER) (test 3.8 meq/L 3.5-5.1 Specimen slightly ngsp=683) hemolyzed CHLORIDE (BEAKER) (test 101 meq/L 98-107 ujxy=915) CO2 (BEAKER) (test 28 meq/L 22-29 uwtr=085) BLOOD UREA NITROGEN 8 mg/dL 7-21 (BEAKER) (test smlc=556) CREATININE (BEAKER) (test 0.57 mg/dL 0.57-1.25 Specimen slightly jnot=354) hemolyzed GLUCOSE RANDOM (BEAKER) 87 mg/dL 70-105 (test ledq=199) CALCIUM (BEAKER) (test 9.2 mg/dL 8.4-10.2 mphm=487) EGFR (BEAKER) (test 102 mL/min/1.73 sq m ESTIMATED GFR IS NOT srtu=8067) ACCURATE CREATININE CLEARANCE IN PREDICTING GLOMERULAR FILTRATION RATE. ESTIMATED GFR IS NOT APPLICABLE FOR DIALYSIS PATIENTS. COMPREHENSIVE METABOLIC [id number] 07:05:00 Test Item Value Reference Range Comments TOTAL PROTEIN (BEAKER) 6.9 gm/dL 6.0-8.3 Specimen slightly (test kekw=568) hemolyzed ALBUMIN (BEAKER) (test 3.3 g/dL 3.5-5.0 Specimen slightly jolm=5480) hemolyzed ALKALINE PHOSPHATASE 150 U/L 40-150 (BEAKER) (test aigh=063) BILIRUBIN TOTAL (BEAKER) 1.0 mg/dL 0.2-1.2 Specimen slightly (test btmi=005) hemolyzed SODIUM (BEAKER) (test 136 meq/L 136-145 ngdv=462) POTASSIUM (BEAKER) (test 3.8 meq/L 3.5-5.1 Specimen slightly swyf=905) hemolyzed CHLORIDE (BEAKER) (test 101 meq/L 98-107 wbzj=421) CO2 (BEAKER) (test 28 meq/L 22-29 ebjj=331) BLOOD UREA NITROGEN 8 mg/dL 7-21 (BEAKER) (test epbi=983) CREATININE (BEAKER) (test 0.57 mg/dL 0.57-1.25 Specimen slightly slkc=205) hemolyzed GLUCOSE RANDOM (BEAKER) 87 mg/dL 70-105 (test ggac=938) CALCIUM (BEAKER) (test 9.2 mg/dL 8.4-10.2 gcji=784) AST (SGOT) (BEAKER) (test 43 U/L 5-34 Specimen slightly fuzx=444) hemolyzed ALT (SGPT) (BEAKER) (test 17 U/L 6-55 Specimen slightly axhm=367) hemolyzed EGFR (BEAKER) (test 102 mL/min/1.73 sq ESTIMATED GFR IS NOT emvx=6534) m ACCURATE CREATININE CLEARANCE IN PREDICTING GLOMERULAR FILTRATION RATE. ESTIMATED GFR IS NOT APPLICABLE FOR DIALYSIS PATIENTS. PERIPHERAL BLOOD SMEAR - PATHOLOGIST [id number] 14:45:00 Test Item Value Reference Range Comments PERIPHERAL SMR REVIEW Thrombocytopenia. (BEAKER) (test uubi=8074) Occasional large forms. No clumping or satellitosis. [id number] Ele (BEAKER) (test fabt=7377) Ama Carmen (electronic signature) CBC (HEMOGRAM ONLY)2016-08-07 10:59:00 Test Item Value Reference Range Comments WHITE BLOOD CELL COUNT (BEAKER) (test prgq=219) 4.8 K/ L 4.0-10.0 RED BLOOD CELL COUNT (BEAKER) (test ktmp=872) 4.23 M/ L 4.00-5.00 HEMOGLOBIN (BEAKER) (test xwal=798) 14.9 GM/DL 12.0-15.0 HEMATOCRIT (BEAKER) (test zfku=087) 46.1 % 36.0-45.0 MEAN CORPUSCULAR VOLUME (BEAKER) (test yman=090) 109.0 fL 82.0-99.0 MEAN CORPUSCULAR HEMOGLOBIN (BEAKER) (test 35.3 pg 27.0-33.0 fmbd=160) MEAN CORPUSCULAR HEMOGLOBIN CONC (BEAKER) (test 32.4 GM/DL 32.0-36.0 fpsk=690) RED CELL DISTRIBUTION WIDTH (BEAKER) (test 14.9 % 10.3-14.2 iael=985) PLATELET COUNT (BEAKER) (test hdil=970) 82 K/CU MM 150-430 MEAN PLATELET VOLUME (BEAKER) (test pmoo=156) 8.8 fL 6.5-10.5 NUCLEATED RED BLOOD CELLS (BEAKER) (test 0 /100 WBC 0-0 wvkt=395) 0.00(MANUAL DIFFERENTIAL)2016-08-07 10:59:00 Test Item Value Reference Range Comments NEUTROPHILS - REL (DIFF) (BEAKER) (test 48 % jmwr=7976) LYMPHOCYTES - REL (DIFF) (BEAKER) (test 38 % dslq=5969) MONOCYTES - REL (DIFF) (BEAKER) (test owxz=9582) 9 % EOSINOPHILS - REL (DIFF) (BEAKER) (test 5 % rdtq=4307) NEUTROPHILS - ABS (DIFF) (BEAKER) (test 2.30 K/ L 1.80-8.00 fplh=4423) LYMPHOCYTES - ABS (DIFF) (BEAKER) (test 1.82 K/ L 1.48-4.50 tzhk=6304) MONOCYTES - ABS (DIFF) (BEAKER) (test vsrl=1977) 0.43 K/ L 0.00-1.30 EOSINOPHILS - ABS (DIFF) (BEAKER) (test 0.24 K/ L 0.00-0.50 iypg=0984) TOTAL COUNTED (BEAKER) (test rsfx=8797) 100 MANUAL NRBC PER 100 CELLS (BEAKER) (test 1 /100 WBC 0-0 phee=8856) WBC MORPHOLOGY (BEAKER) (test nclo=567) Normal PLT MORPHOLOGY (BEAKER) (test jcjt=115) Normal RBC MORPHOLOGY (BEAKER) (test yjuv=041) Normal TSH/FREE T4 IF [id number] 08:56:00 Test Item Value Reference Range Comments THYROID STIMULATING HORMONE (BEAKER) (test 0.38 uIU/mL 0.35-4.94 jnss=732) BASIC METABOLIC [id number] 08:03:00 Test Item Value Reference Range Comments SODIUM (BEAKER) (test 137 meq/L 136-145 vctv=459) POTASSIUM (BEAKER) (test 4.3 meq/L 3.5-5.1 Specimen slightly sswc=872) hemolyzed CHLORIDE (BEAKER) (test 105 meq/L 98-107 xcsk=159) CO2 (BEAKER) (test 23 meq/L 22-29 dubz=726) BLOOD UREA NITROGEN 9 mg/dL 7-21 (BEAKER) (test vevq=047) CREATININE (BEAKER) (test 0.55 mg/dL 0.57-1.25 Specimen slightly pzyd=631) hemolyzed GLUCOSE RANDOM (BEAKER) 79 mg/dL 70-105 (test bvbp=030) CALCIUM (BEAKER) (test 8.7 mg/dL 8.4-10.2 qgir=952) EGFR (BEAKER) (test 106 mL/min/1.73 sq m ESTIMATED GFR IS NOT rejq=8392) ACCURATE CREATININE CLEARANCE IN PREDICTING GLOMERULAR FILTRATION RATE. ESTIMATED GFR IS NOT APPLICABLE FOR DIALYSIS PATIENTS. [id number] 07:51:00 Test Item Value Reference Range Comments PARTIAL THROMBOPLASTIN TIME (BEAKER) (test 33.1 seconds 22.5-36.0 ontk=995) PROTHROMBIN [id number] 07:50:00 Test Item Value Reference Range Comments PROTIME (BEAKER) (test ogdk=848) 15.0 seconds 11.7-14.7 INR (BEAKER) (test gphg=566) 1.2 <=5.9 RECOMMENDED COUMADIN/WARFARIN INR THERAPY RANGESSTANDARD DOSE: 2.0 - 3.0 Includes: PROPHYLAXIS forvenous thrombosis, systemic embolization; TREATMENT for venous thrombosis and/or pulmonary embolus.HIGH RISK: Target INR is 2.5-3.5 for patients with mechanical heart valves.T4, [id number] 10:11:00 Test Item Value Reference Range Comments FREE T4 (BEAKER) (test yhdp=416) 1.49 ng/dL 0.70-1.48 TSH/FREE T4 IF [id number] 06:27:00 Test Item Value Reference Range Comments THYROID STIMULATING HORMONE (BEAKER) (test 11.79 uIU/mL 0.35-4.94 rdan=251) CBC W/PLT COUNT & AUTO [id number] 09:40:00 Test Item Value Reference Range Comments WHITE BLOOD CELL COUNT (BEAKER) (test jaga=834) 7.6 K/ L 4.0-10.0 RED BLOOD CELL COUNT (BEAKER) (test clwy=756) 3.28 M/ L 4.00-5.00 HEMOGLOBIN (BEAKER) (test rqkc=365) 13.6 GM/DL 12.0-15.0 HEMATOCRIT (BEAKER) (test imxh=851) 37.7 % 36.0-45.0 MEAN CORPUSCULAR VOLUME (BEAKER) (test ueok=570) 115.0 fL 82.0-99.0 MEAN CORPUSCULAR HEMOGLOBIN (BEAKER) (test 41.4 pg 27.0-33.0 nlxe=097) MEAN CORPUSCULAR HEMOGLOBIN CONC (BEAKER) (test 36.0 GM/DL 32.0-36.0 ryfc=337) RED CELL DISTRIBUTION WIDTH (BEAKER) (test 14.1 % 10.3-14.2 srec=848) PLATELET COUNT (BEAKER) (test odza=120) 122 K/CU MM 150-430 MEAN PLATELET VOLUME (BEAKER) (test fzqf=574) 8.4 fL 6.5-10.5 NUCLEATED RED BLOOD CELLS (BEAKER) (test 0 /100 WBC 0-0 prsq=742) NEUTROPHILS RELATIVE PERCENT (BEAKER) (test 68 % awwv=918) LYMPHOCYTES RELATIVE PERCENT (BEAKER) (test 19 % yavo=036) MONOCYTES RELATIVE PERCENT (BEAKER) (test 9 % qlxp=967) EOSINOPHILS RELATIVE PERCENT (BEAKER) (test 3 % xbrr=743) BASOPHILS RELATIVE PERCENT (BEAKER) (test 0 % hvzq=518) NEUTROPHILS ABSOLUTE COUNT (BEAKER) (test 5.19 K/ L 1.80-8.00 qeay=623) LYMPHOCYTES ABSOLUTE COUNT (BEAKER) (test 1.47 K/ L 1.48-4.50 juju=522) MONOCYTES ABSOLUTE COUNT (BEAKER) (test 0.70 K/ L 0.00-1.30 bdkq=637) EOSINOPHILS ABSOLUTE COUNT (BEAKER) (test 0.21 K/ L 0.00-0.50 xaqa=370) BASOPHILS ABSOLUTE COUNT (BEAKER) (test 0.03 K/ L 0.00-0.20 ycgg=878) 0.00BASIC METABOLIC [id number] 05:48:00 Test Item Value Reference Range Comments SODIUM (BEAKER) (test 133 meq/L 136-145 xdfc=841) POTASSIUM (BEAKER) (test 4.6 meq/L 3.5-5.1 Specimen slightly bwtg=047) hemolyzed CHLORIDE (BEAKER) (test 101 meq/L 98-107 yzmh=036) CO2 (BEAKER) (test 24 meq/L 22-29 obbc=442) BLOOD UREA NITROGEN 9 mg/dL 7-21 (BEAKER) (test ubpq=436) CREATININE (BEAKER) (test 0.58 mg/dL 0.57-1.25 Specimen slightly olot=157) hemolyzed GLUCOSE RANDOM (BEAKER) 89 mg/dL 70-105 (test gtnz=693) CALCIUM (BEAKER) (test 9.4 mg/dL 8.4-10.2 dafi=725) EGFR (BEAKER) (test 100 mL/min/1.73 sq m ESTIMATED GFR IS NOT bhlw=4243) ACCURATE CREATININE CLEARANCE IN PREDICTING GLOMERULAR FILTRATION RATE. ESTIMATED GFR IS NOT APPLICABLE FOR DIALYSIS PATIENTS. URINALYSIS W/ [id number] 06:22:00 Test Item Value Reference Range Comments COLOR (BEAKER) (test fevg=979) Yellow CLARITY (BEAKER) (test fjhm=652) Clear SPECIFIC GRAVITY UA (BEAKER) (test ndei=799) 1.006 1.001-1.035 PH UA (BEAKER) (test ijak=077) 7.0 5.0-8.0 PROTEIN UA (BEAKER) (test ajtp=229) Negative Negative GLUCOSE UA (BEAKER) (test hbme=819) Negative Negative KETONES UA (BEAKER) (test nzaa=938) Trace Negative BILIRUBIN UA (BEAKER) (test oozt=350) Negative Negative BLOOD UA (BEAKER) (test warh=171) Negative Negative NITRITE UA (BEAKER) (test kvua=492) Negative Negative LEUKOCYTE ESTERASE UA (BEAKER) (test ghfu=569) Small Negative UROBILINOGEN UA (BEAKER) (test uywb=402) 0.2 mg/dL 0.2-1.0 RBC UA (BEAKER) (test oopc=390) 1 /HPF WBC UA (BEAKER) (test ncab=495) 4 /HPF BACTERIA (BEAKER) (test tafp=496) Rare MUCUS (BEAKER) (test hemn=9120) Rare SQUAMOUS EPITHELIAL (BEAKER) (test utoz=088) 1 /HPF HYALINE CASTS (BEAKER) (test ylsz=189) 2 /LPF SOURCE(BEAKER) (test vvxj=1904) Urine, [place] VITAMIN D, [id number] 15:19:00 Test Item Value Reference Range Comments VITAMIN D 25-OH (BEAKER) (test vglc=1385) 63.3 ng/mL 13.0-47.8 CBC W/PLT COUNT & AUTO [id number] 08:32:00 Test Item Value Reference Range Comments WHITE BLOOD CELL COUNT (BEAKER) (test zqde=326) 11.2 K/ L 4.0-10.0 RED BLOOD CELL COUNT (BEAKER) (test fkdm=122) 3.74 M/ L 4.00-5.00 HEMOGLOBIN (BEAKER) (test jhhj=196) 14.9 GM/DL 12.0-15.0 HEMATOCRIT (BEAKER) (test yszl=250) 44.0 % 36.0-45.0 MEAN CORPUSCULAR VOLUME (BEAKER) (test cwec=570) 118.0 fL 82.0-99.0 MEAN CORPUSCULAR HEMOGLOBIN (BEAKER) (test 39.7 pg 27.0-33.0 pxqv=144) MEAN CORPUSCULAR HEMOGLOBIN CONC (BEAKER) (test 33.8 GM/DL 32.0-36.0 pzva=654) RED CELL DISTRIBUTION WIDTH (BEAKER) (test 12.8 % 10.3-14.2 hely=145) PLATELET COUNT (BEAKER) (test mtdp=902) 116 K/CU MM 150-430 MEAN PLATELET VOLUME (BEAKER) (test cltv=982) 8.9 fL 6.5-10.5 NUCLEATED RED BLOOD CELLS (BEAKER) (test 0 /100 WBC 0-0 dhrz=786) NEUTROPHILS RELATIVE PERCENT (BEAKER) (test 75 % croy=862) LYMPHOCYTES RELATIVE PERCENT (BEAKER) (test 13 % azpd=066) MONOCYTES RELATIVE PERCENT (BEAKER) (test 10 % zbbn=308) EOSINOPHILS RELATIVE PERCENT (BEAKER) (test 3 % ekeo=959) BASOPHILS RELATIVE PERCENT (BEAKER) (test 1 % erqs=727) NEUTROPHILS ABSOLUTE COUNT (BEAKER) (test 8.37 K/ L 1.80-8.00 pvgr=934) LYMPHOCYTES ABSOLUTE COUNT (BEAKER) (test 1.41 K/ L 1.48-4.50 gler=038) MONOCYTES ABSOLUTE COUNT (BEAKER) (test 1.09 K/ L 0.00-1.30 hfoj=472) EOSINOPHILS ABSOLUTE COUNT (BEAKER) (test 0.29 K/ L 0.00-0.50 vpmk=632) BASOPHILS ABSOLUTE COUNT (BEAKER) (test 0.06 K/ L 0.00-0.20 vnyd=888) 0.00BASI METABOLIC [id number] 05:11:00 Test Item Value Reference Range Comments SODIUM (BEAKER) (test 135 meq/L 136-145 ruel=705) POTASSIUM (BEAKER) (test 4.4 meq/L 3.5-5.1 Specimen slightly bdxd=679) hemolyzed CHLORIDE (BEAKER) (test 98 meq/L 98-107 dita=796) CO2 (BEAKER) (test 26 meq/L 22-29 kyjy=252) BLOOD UREA NITROGEN 9 mg/dL 7-21 (BEAKER) (test tddu=649) CREATININE (BEAKER) (test 0.60 mg/dL 0.57-1.25 Specimen slightly uqhb=147) hemolyzed GLUCOSE RANDOM (BEAKER) 76 mg/dL 70-105 (test eyrq=092) CALCIUM (BEAKER) (test 9.2 mg/dL 8.4-10.2 mwrm=276) EGFR (BEAKER) (test 96 mL/min/1.73 sq m ESTIMATED GFR IS NOT bqbl=2407) ACCURATE CREATININE CLEARANCE IN PREDICTING GLOMERULAR FILTRATION RATE. ESTIMATED GFR IS NOT APPLICABLE FOR DIALYSIS PATIENTS. URINALYSIS W/ [id number] 04:05:00 Test Item Value Reference Range Comments COLOR (BEAKER) (test hctp=792) Yellow CLARITY (BEAKER) (test kymn=438) Clear SPECIFIC GRAVITY UA (BEAKER) (test gtgo=478) 1.007 1.001-1.035 PH UA (BEAKER) (test cifn=189) 7.0 5.0-8.0 PROTEIN UA (BEAKER) (test hgfl=376) Negative Negative GLUCOSE UA (BEAKER) (test ltqv=983) Negative Negative KETONES UA (BEAKER) (test dtsp=483) Trace Negative BILIRUBIN UA (BEAKER) (test pfca=681) Negative Negative BLOOD UA (BEAKER) (test dafw=048) Moderate Negative NITRITE UA (BEAKER) (test qvsm=765) Negative Negative LEUKOCYTE ESTERASE UA (BEAKER) (test iirt=905) Small Negative UROBILINOGEN UA (BEAKER) (test mryk=721) 2.0 mg/dL 0.2-1.0 RBC UA (BEAKER) (test fdah=681) 2 /HPF WBC UA (BEAKER) (test puhi=598) 5 /HPF BACTERIA (BEAKER) (test xwns=342) Rare MUCUS (BEAKER) (test nrpi=2144) Rare SQUAMOUS EPITHELIAL (BEAKER) (test dknz=311) < /HPF HYALINE CASTS (BEAKER) (test ibkw=103) 2 /LPF SOURCE(BEAKER) (test kene=5417) Urine, [place]
[2018-11-05] MEDS ORDERED: MEPERIDINE HCL 25 MG/0.5 ML ONE (13:03)
[2018-11-05] MEDS ORDERED: dexAMETHasone 10 MG/ML VIAL ONE (13:03)
--- NOTE | 2018-11-05 14:40 | RAD REPORT ---
EXAM DESCRIPTION: CT - Stone Protocol - 11/05/2018 2:18 pm CLINICAL HISTORY: Abdominal pain. Lower abdominal pain. Urinary frequency COMPARISON: October 26, 2018 TECHNIQUE: Computed axial tomography of the abdomen pelvis was obtained without oral or IV contrast. Lack of IV and oral contrast limits evaluation of solid organs, bowel, and vessels. Coronal reformat landen images were obtained and reviewed. All CT scans are performed using dose optimization technique as appropriate and may include automated exposure control or mA/KV adjustment according to patient size. FINDINGS: A renal calculus is not seen. An ureteral calculus is not noted. A bladder calculus is not present. Liver has a nodular contour. The caudate lobe is prominent. Spleen measures 13 centimeters Pancreas and adrenals appear grossly normal There is no evidence of diverticulitis. No change in the compression fractures involving lumbar spine. Postsurgical changes involve the lumba r spine Small to moderate hiatal hernia IMPRESSION: Negative for a genitourinary calculus
[2018-11-05 15:08] LABS: Urine Bacteria <20 /HPF (<20); Urine Culture Reflex Order REFLEXED; Urine Mucus 1+ /HPF (NONE SEEN); Urine RBC <5 /HPF (NONE SEEN)
[2018-11-05 15:09] LABS: Urine Blood NEGATIVE (NEG); Urine Glucose NEGATIVE (NEG); Urine Protein NEGATIVE (NEG); Urine Specific Gravity 1.015 (1.005-1.030)
--- NOTE | 2018-11-05 15:30 | ER ---
Nurse's Notes [facility] Name: Regina Velasquez Age: 83 yrs Sex: Female : 1935 Arrival Date: 11/05/2018 Time: 12:52 Bed 25 Private MD: Diagnosis: Low back pain;Radiculopathy, thoracolumbar region Presentation: 11/05 13:22 Presenting complaint: Patient states: C/O severe back pain 10/10 on a pain scale. Pt wh was just seen in ER 10 days ago for same complaint. Transition of care: patient was not received from another setting of care. Onset of symptoms was November 05, 2018. Risk Assessment: Do you want to hurt yourself or someone else? Patient reports no desire to harm self or others. Initial Sepsis Screen: Does the patient meet any 2 criteria? No. Patient's initial sepsis screen is negative. Does the patient have a suspected source of infection? No. Patient's initial sepsis screen is negative. Care prior to arrival: None. 13:22 Method Of Arrival: EMS: [facility] 13:22 Acuity: NOELLE 3 Triage Assessment: 13:00 General: Behavior is calm, cooperative, appropriate for age. Historical: - Allergies: 13:25 Strawberries; - Immunization history:: Adult Immunizations unknown. - Social history:: Smoking status: Patient/guardian denies using tobacco. - Ebola Screening: : Patient negative for fever greater than or equal to 101.5 degrees Fahrenheit, and additional compatible Ebola Virus Disease symptoms Patient denies exposure to infectious person. - Family history:: not pertinent. - Hospitalizations: : No recent hospitalization is reported. Screenin:23 Abuse screen: Denies threats or abuse. Denies injuries from another. Nutritional screening: No deficits noted. Tuberculosis screening: No symptoms or risk factors identified. Fall Risk Fall in past 12 months (25 points). Assessment: 13:25 General: Appears in no apparent distress. uncomfortable. Pain: Complains of pain in back Pain does not radiate. Pain currently is 10 out of 10 on a pain scale. Quality of pain is described as aching, Pain began 1 day ago. Neuro: Level of Consciousness is awake, alert, obeys commands. Cardiovascular: Heart tones S1 S2. Respiratory: Airway is patent Respiratory effort is even, unlabored, Respiratory pattern is regular, symmetrical, Breath sounds are clear bilaterally. GI: Abdomen is flat, non-distended, Abd is soft and non tender X 4 quads. : No signs and/or symptoms were reported regarding the genitourinary system. EENT: No signs and/or symptoms were reported regarding the EENT system. Derm: Skin is intact, is healthy with good turgor, Skin is pink, warm \\T\\ dry. normal. Musculoskeletal: Circulation, motion, and sensation intact. 14:49 Reassessment: Patient appears in no apparent distress at this time. No changes from previously documented assessment. Patient and/or family updated on plan of care and expected duration. Pain level reassessed. Patient is alert, oriented x 3, equal unlabored respirations, skin warm/dry/pink. Patient states feeling better. Patient states symptoms have improved. 15:30 Reassessment: Helped reposition patient in bed. Pt states "I don't know how I am going aa5 to get home, my family lives a few hours from here and I just have my older sister here". Spoke to patient about ability to contact EMS for transport back to her house, pt states "that would be great but I don't know who is going to pick and shovel worker my prescription and my sister cannot drive at night". Notified pt that I could contact social science instructor at this time to come and evaluate her situation. Pt agrees. . 15:35 Reassessment: Spoke to airplane woodworker per Dr. Harper and states she will come to ER to aa5 evaluate patient. . 15:57 Reassessment: Patient appears in no apparent distress at this time. No changes from previously documented assessment. Patient and/or family updated on plan of care and expected duration. Pain level reassessed. Patient is alert, oriented x 3, equal unlabored respirations, skin warm/dry/pink. Patient states feeling better. Patient states symptoms have improved. SS was consulted on Case as Pt lives alone and wants Home Health Services. Vital Signs: 13:14 BP 172 / 82; Pulse 77; Resp 20; Temp 97.8; Pulse Ox 96% on R/A; tm3 14:30 BP 165 / 64; Pulse 69; Resp 18; Pulse Ox 94% on R/A; wh 15:45 BP 176 / 72; Pulse 79; Resp 18; Pulse Ox 97% on R/A; ED Course: 12:52 Patient arrived in ED. rn 12:52 Deon Harper MD is Attending Physician. rn 12:57 Enrique Molina is Primary Nurse. 13:10 Inserted saline lock: 22 gauge in right antecubital area, using aseptic technique. tm3 13:23 Triage completed. 13:24 Arm band placed on right wrist. 13:24 Patient has correct armband on for positive identification. Placed in gown. Bed in low wh position. Call light in reach. Side rails up X 1. Pulse ox on. NIBP on. 14:19 CT Stone Protocol In Process Unspecified. EDMS 14:53 Urine collected: Bed durant, clean catch. tm3 15:59 No provider procedures requiring assistance completed. IV discontinued, intact, bleeding controlled, No redness/swelling at site. Administered Medications: 13:19 Drug: Demerol 25 mg {Note: RASS 0.} Route: IVP; Site: right antecubital; 16:01 Follow up: Response: No adverse reaction; Pain is decreased; RASS: Alert and Calm (0) 13:19 Drug: Decadron - Dexamethasone 10 mg Route: IVP; Site: right antecubital; 16:01 Follow up: Response: No adverse reaction Outcome: 15:28 Discharge ordered by . rn 16:00 Discharged to home via wheelchair, with family. 16:00 Condition: good 16:00 Discharge instructions given to patient, Instructed on discharge instructions, follow up and referral plans. medication usage, POC Back Pain, Musculoskeletal Pain, Radiculopathy Demonstrated understanding of instructions, follow-up care, medications, POC Prescriptions given X 2. 16:01 Patient left the ED. Signatures: Dispatcher [employer] EDMS Jason Sotelo tm3 Deon Harper MD MD rn Calderon, Audri, RN RN aa5 Enrique Molina Corrections: (The following items were deleted from the chart) 13:24 Immunization history: Adult Immunizations up to date, [facility]
--- NOTE | 2018-11-05 15:30 | EDPHYS ---
Physician Documentation [facility] Name: Regina Velasquez Age: 83 yrs Sex: Female : 1935 Arrival Date: 11/05/2018 Time: 12:52 Bed 25 Private MD: ED Physician Deon Harper HPI: 11/05 15:20 This 83 yrs old Female presents to ER via EMS with complaints of back pain. rn 15:20 The patient presents with pain that is chronic. The symptoms are located in the low rn back. The pain radiates to the right leg. Modifying factors: The patient symptoms are alleviated by nothing, the patient symptoms are aggravated by any movement. Severity of symptoms: At their worst the symptoms were moderate, in the emergency department the symptoms are unchanged. The patient has experienced similar episodes in the past, chronically. Reports recently diagnosed with spinal compression fracture, no trauma noted, seen last week, seen by pcp, has outpt MRI scheduled and pcp f/u as well. Sent home on pain meds. Reports pain got worse today, radiates down right leg. No new injury or symptoms. Just pain.. Historical: - Allergies: 13:25 Strawberries; wh - Immunization history:: Adult Immunizations unknown. - Social history:: Smoking status: Patient/guardian denies using tobacco. - Ebola Screening: : Patient negative for fever greater than or equal to 101.5 degrees Fahrenheit, and additional compatible Ebola Virus Disease symptoms Patient denies exposure to infectious person. - Family history:: not pertinent. - Hospitalizations: : No recent hospitalization is reported. ROS: 15:20 Constitutional: Negative for fever, chills, and weight loss, Eyes: Negative for injury, rn pain, redness, and discharge, Cardiovascular: Negative for chest pain, palpitations, and edema, Respiratory: Negative for shortness of breath, cough, wheezing, and pleuritic chest pain, Abdomen/GI: Negative for abdominal pain, nausea, vomiting, diarrhea, and constipation, Back: + mid back pain MS/Extremity: Negative for injury and deformity, Skin: Negative for injury, rash, and discoloration, Neuro: Negative for headache, weakness, numbness, tingling, and seizure. Exam: 15:20 Constitutional: This is a well developed, well nourished patient who is awake, alert, rn appears uncomfortable, fidgety Head/Face: Normocephalic, atraumatic. ENT: MMM Neck: Trachea midline, no thyromegaly or masses palpated, and no cervical lymphadenopathy. Supple, full range of motion without nuchal rigidity, or vertebral point tenderness. No Meningismus. Respiratory: No increased work of breathing, no retractions or nasal flaring. Abdomen/GI: soft, non-tender Back: No spinal tenderness. MS/ Extremity: Pulses equal, no cyanosis. Neurovascular intact. Full, normal range of motion. Equal circumference. Neuro: Awake and alert, GCS 15. Cranial nerves II-XII grossly intact. Motor strength 5/5 in all extremities. Sensory grossly intact. Cerebellar exam normal. Vital Signs: 13:14 BP 172 / 82; Pulse 77; Resp 20; Temp 97.8; Pulse Ox 96% on R/A; tm3 14:30 BP 165 / 64; Pulse 69; Resp 18; Pulse Ox 94% on R/A; wh 15:45 BP 176 / 72; Pulse 79; Resp 18; Pulse Ox 97% on R/A; wh MDM: 12:52 Patient medically screened. rn 15:20 Differential diagnosis: chronic back pain, Fatigue radiculopathy, muscle cramp and rn spasm. Data reviewed: vital signs, nurses notes, old medical records, lab test result(s), radiologic studies, and as a result, I will discharge patient. Counseling: I had a detailed discussion with the patient and/or guardian regarding: the historical points, exam findings, and any diagnostic results supporting the discharge/admit diagnosis, lab results, radiology results, the need for outpatient follow up, to return to the emergency department if symptoms worsen or persist or if there are any questions or concerns that arise at home. Response to treatment: the patient's symptoms have markedly improved after treatment, the patient's condition has returned to base line, the patient is now symptom free, and as a result, I will discharge patient. Special discussion: I discussed with the patient/guardian in detail that at this point there is no indication for admission to the hospital. It is understood, however, that if the symptoms persist or worsen the patient needs to return immediately for re-evaluation. Based on the history and exam findings, there is no indication for further emergent testing or inpatient evaluation. I discussed with the patient/guardian the need to see the primary care provider for further evaluation of the symptoms. ED course: Patient's pain is resolved, spoke with family over phone, explained to them that was mis communicated last visit, at that time, was not felt to be new compression fracture and appeared old, likely has chronic back pain with radiculopathy and muscle spasm. CT negative for acute findings today as well. Neurologically intact, will dc home with steroids and muscle relaxer. Family understands and agrees. Has f/u with pcp as well as MRI scheduled.. 11/05 12:52 Order name: Urine Microscopic Only; Complete Time: 15:30 rn 11/05 14:54 Order name: Urine Dipstick--Ancillary (enter results); Complete Time: 15:30 ms 11/05 13:54 Order name: CT Stone Protocol; Complete Time: 14:53 rn 11/05 15:13 Order name: Urine Culture [facility] 11/05 12:52 Order name: IV Start; Complete Time: 13:14 rn Administered Medications: 13:19 Drug: Demerol 25 mg {Note: RASS 0.} Route: IVP; Site: right antecubital; 16:01 Follow up: Response: No adverse reaction; Pain is decreased; RASS: Alert and Calm (0) 13:19 Drug: Decadron - Dexamethasone 10 mg Route: IVP; Site: right antecubital; 16:01 Follow up: Response: No adverse reaction Disposition: 11/05/18 15:28 Discharged to Home. Impression: Low back pain, Radiculopathy, thoracolumbar region. - Condition is Stable. - Discharge Instructions: Back Pain, Adult, Chronic Back Pain, Lumbosacral Radiculopathy, Musculoskeletal Pain. - Prescriptions for Cyclobenzaprine 10 mg Oral Tablet - take 1 tablet by ORAL route every 8-12 hours As needed; 20 tablet. Medrol (Juancarlos) 4 mg Oral Tablets, Dose Pack - take 1 tablet by ORAL route as directed - follow package instructions; 1 packet. - Medication Reconciliation Form, Thank You Letter, Antibiotic Education, Prescription Opioid Use form. - Follow up: Private Physician; When: As needed; Reason: Recheck today's complaints, Re-evaluation by your physician. - Problem is an ongoing problem. - Symptoms have improved. Signatures: Dispatcher [employer] EDDeon Govea MD MD rn Habalo, Winsy Corrections: (The following items were deleted from the chart) 13:28 13:24 Immunization history: Adult Immunizations up to date, [facility] 15:24 15:20 Constitutional: Negative for fever, chills, and weight loss, Eyes: Negative for rn injury, pain, redness, and discharge, rn 16:01 15:28 11/05/2018 15:28 Discharged to Home. Impression: Low back pain; Radiculopathy, thoracolumbar region. Condition is Stable. Forms are Medication Reconciliation Form, Thank You Letter, Antibiotic Education, Prescription Opioid Use. Follow up: Private Physician; When: As needed; Reason: Recheck today's complaints, Re-evaluation by your physician. Problem is an ongoing problem. Symptoms have improved. rn
[2018-11-05 16:40] VITALS: TEMP 97.8
[2018-11-05 16:46] VITALS: BP 176/72; O2SAT 97
== END 2018-11-05 16:01 | disposition home or self-care (01) ==
LOC: ER 12:50
DX: M54.15 Radiculopathy, thoracolumbar region (principal); Z91.018 Allergy to other foods
CPT/HCPCS: 87088; 76377; 74176; 96375; 96374; 99284; J1100; J2175; 81003; 81015; 87086

== ENCOUNTER 2024-12-16 14:34 | Emergency (ER) | payer OTHER ==
[2024-12-16] MEDS ORDERED: ACETAMINOPHEN 325 MG TABLET ONE (15:24)
--- NOTE | 2024-12-16 15:42 | RAD REPORT ---
EXAMINATION: Shoulder Left 2+ Views CLINICAL INDICATION: Female, 89 years old. PAIN COMPARISON: No prior exam. FINDINGS: No acute fracture. Left shoulder arthroplasty. No malalignment/dislocation. No significant focal degenerative change. Other: n/a IMPRESSION: No acute osseous abnormality. Left shoulder arthroplasty without hardware complications.
--- NOTE | 2024-12-16 16:26 | EDPHYS ---
Physician Documentation [facility] Name: Regina Velasquez Age: 89 yrs Sex: Female : 1935 Arrival Date: 12/16/2024 Time: 14:34 Bed 3 Private MD: ED Physician Amanuel Burdick HPI: 12/16 15:00 This 89 yrs old Female presents to ER via EMS with complaints of Shoulder Pain. cp 15:00 The patient or guardian complains of an injury, pain, that is acute. anterior aspect cp left shoulder. Context: resulted from a fall, tripped over bedding on floor in bedroom, The patient experiences decreased range of motion, when attempts to raise arm. Onset: The symptoms/episode began/occurred just prior to arrival. Historical: - Allergies: 17:10 Strawberries; ap3 - PMHx: 17:10 Gout; mass left breast; ap3 - Immunization history:: Adult Immunizations unknown. - Infectious Disease History:: Denies. - Social history:: Smoking status: unknown. ROS: 15:05 MS/extremity: Positive for decreased range of motion, pain, of the left shoulder, cp Exam: 15:15 Constitutional: The patient appears in no acute distress, alert, awake, non-toxic, well cp developed, well nourished, uncomfortable, 15:15 Head/Face: Normocephalic, atraumatic. cp 15:15 Eyes: Periorbital structures: appear normal, Conjunctiva: normal, no exudate, no injection, Sclera: no appreciated abnormality, Lids and lashes: appear normal, bilaterally, 15:15 ENT: External ear(s): are unremarkable, Nose: is normal, Mouth: Lips: moist, Oral mucosa: moist, Posterior pharynx: Airway: no evidence of obstruction, patent, Vital Signs: 15:08 BP 199 / 78; Pulse 69; Resp 16; Temp 97.6(O); Pulse Ox 100% on R/A; Pain 3/10; ss 16:12 BP 184 / 79; Pulse 62; Resp 17; Pulse Ox 100% ; ap3 15:08 Pain Scale: Adult ss MDM: 14:57 Medical Screening Exam initiated cp 15:20 Differential diagnosis: Anterior dislocation with fracture, Anterior dislocation cp without fracture, Posterior dislocation with fracture, Posterior dislocation without fracture, humeral head fracture, glenoid fracture, contusion. 16:22 Data reviewed: vital signs, nurses notes, radiologic studies, plain films. Care cp significantly affected by the following chronic conditions: Hypertension. Counseling: I had a detailed discussion with the patient and/or guardian regarding the historical points, exam findings, and any diagnostic results supporting the discharge/admit diagnosis, radiology results, the need for outpatient follow up, a family practitioner, to return to the emergency department if symptoms worsen or persist or if there are any questions or concerns that arise at home. 12/16 15:18 Order name: XRAY Shoulder LEFT 2 view; Complete Time: 15:50 cp 12/16 15:51 Interpretation: Report reviewed. cp 12/16 15:50 Order name: Blood Pressure Recheck; Complete Time: 15:59 cp 12/16 15:50 Order name: Sling; Complete Time: 16:34 cp Administered Medications: 15:48 Drug: Acetaminophen PO 650 mg PO once Route: PO; ap3 17:10 Follow up: Response: No adverse reaction; Pain is decreased ap3 Disposition Summary: 12/16/24 16:25 Discharge Ordered Notes: Location: Home cp Problem: new cp Symptoms: have improved cp Condition: Stable cp Diagnosis - Essential (primary) hypertension cp - Pain in left shoulder cp - Fall on same level from slipping, tripping and stumbling with subsequent striking cp against object Followup: cp - With: Private Physician - When: 2 - 3 days - Reason: Recheck today's complaints Discharge Instructions: - Discharge Summary Sheet cp - Fall Prevention in the Home, Adult cp - Hypertension, Adult cp - Shoulder Pain cp - Shoulder Range of Motion Exercises cp - Managing Your Hypertension cp Forms: - Medication Reconciliation Form cp - Antibiotic Education cp - Prescription Opioid Use cp - Patient Portal Instructions cp - Leadership Thank You Letter cp Prescriptions: - diclofenac sodium 1 % Topical gel - apply 1 gram TOPICAL route 3 times per day As needed apply to left shoulder as cp needed for pain; 45 gram tube; Refills: 0, Product Selection Permitted Signatures: Dispatcher [employer] JIMWA Tristan Berger PA-C PA-C cp Prokisch, Amanda RN RN ap3
--- NOTE | 2024-12-16 16:26 | ER ---
Nurse's Notes [facility] Name: Regina Velasquez Age: 89 yrs Sex: Female : 1935 Arrival Date: 12/16/2024 Time: 14:34 Bed 3 Private MD: Diagnosis: Essential (primary) hypertension;Pain in left shoulder;Fall on same level from slipping, tripping and stumbling with subsequent striking against object Presentation: 12/16 15:08 Chief complaint: Patient states: pain to L shoulder that began after tripping over a ss sheet and falling just prior to arrival. Abrasions also noted to back. Coronavirus screen: Client denies travel out of the [place] in the last 14 days. Ebola Screen: Patient denies exposure to infectious person. Patient denies travel to an Ebola-affected area in the 21 days before illness onset. Initial Sepsis Screen: Does the patient meet any 2 criteria? No. Patient's initial sepsis screen is negative. Does the patient have a suspected source of infection? No. Patient's initial sepsis screen is negative. Risk Assessment: Do you want to hurt yourself or someone else? Patient reports no desire to harm self or others. Onset of symptoms was December 16, 2024. 15:08 Method Of Arrival: EMS: [facility] ss 15:08 Acuity: NOELLE 3 ss Historical: - Allergies: 17:10 Strawberries; ap3 - PMHx: 17:10 Gout; mass left breast; ap3 - Immunization history:: Adult Immunizations unknown. - Infectious Disease History:: Denies. - Social history:: Smoking status: unknown. Screenin:07 [facility] ED Fall Risk Assessment (Adult) History of falling in the last 3 months, ap3 including since admission Yes- single mechanical fall (1 pt) Confusion or Disorientation No (0 pts) Intoxicated or Sedated No (0 pts) Impaired Gait Yes (1 pt) Mobility Assist Device Used Yes (1 pt) Altered Elimination No (0 pt) Score/Fall Risk Level 3 or more points = High Risk Oriented to surroundings, Maintained a safe environment, Educated pt \T\ family on fall prevention, incl call for assistance when getting out of bed, Assessed \T\ reinforced patient's understanding of fall precautions, Provided non-skid footwear, Offered frequent toileting (1:1 observation), Remained with patient while ambulating, Utilized family, sitter, or virtual mission planner as indicated. Abuse screen: Denies threats or abuse. Nutritional screening: No deficits noted. Tuberculosis screening: No symptoms or risk factors identified. Assessment: 14:54 General: Appears comfortable, Behavior is calm, cooperative, appropriate for age. Pain: ap3 Complains of pain in back and left arm left shoulder. Neuro: Level of Consciousness is awake, alert, obeys commands, Oriented to person, place, time, situation, Appropriate for age. Cardiovascular: Patient's skin is warm and dry. Respiratory: Airway is patent Respiratory effort is even, unlabored, Respiratory pattern is regular, symmetrical. Derm: Wound noted back. 15:15 General: Appears uncomfortable, Behavior is calm, cooperative, appropriate for age. aa5 Pain: Complains of pain in left shoulder Pain currently is 3 out of 10 on a pain scale. Quality of pain is described as aching, Pain began post fall Is intermittent, Aggravated by movement to left shoulder. Neuro: Level of Consciousness is awake, alert, obeys commands, Oriented to person, place, time, situation. Cardiovascular: Patient's skin is warm and dry. Respiratory: Airway is patent Respiratory effort is even, unlabored, Respiratory pattern is regular, symmetrical. GI: No signs and/or symptoms were reported involving the gastrointestinal system. : No signs and/or symptoms were reported regarding the genitourinary system. EENT: No signs and/or symptoms were reported regarding the EENT system. Derm: Skin is pink, warm \T\ dry. Abrasion noted to back. Musculoskeletal: Range of motion: intact in all extremities. 15:48 Reassessment: Patient is alert, oriented x 3, equal unlabored respirations, skin aa5 warm/dry/pink. Vital Signs: 15:08 BP 199 / 78; Pulse 69; Resp 16; Temp 97.6(O); Pulse Ox 100% on R/A; Pain 3/10; ss 16:12 BP 184 / 79; Pulse 62; Resp 17; Pulse Ox 100% ; ap3 15:08 Pain Scale: Adult ss ED Course: 14:54 Patient arrived in ED. eb 14:57 Tristan Berger PA-C is PHCP. cp 14:57 Amanuel Burdick MD is Attending Physician. cp 15:07 Pamela Ventura, RN is Primary Nurse. aa5 15:08 Arm band placed on right wrist. ss 15:10 Triage completed. ss 15:39 XRAY Shoulder LEFT 2 view In Process Unspecified. EDMS 16:00 Patient has correct armband on for positive identification. Placed in gown. Bed in low ap3 position. Call light in reach. Side rails up X2. Adult w/ patient. Provided Education on: fall risk education. Client placed on continuous cardiac and pulse oximetry monitoring. NIBP monitoring applied. product handler on. Pulse ox on. NIBP on. Door closed. Noise minimized. Warm blanket given. 17:08 No provider procedures requiring assistance completed. Patient did not have IV access ap3 during this emergency room visit. Administered Medications: 15:48 Drug: Acetaminophen PO 650 mg PO once Route: PO; ap3 17:10 Follow up: Response: No adverse reaction; Pain is decreased ap3 Medication: 17:10 VIS not applicable for this client. ap3 Outcome: 16:25 Discharge ordered by MD. cp 17:09 Discharged to home via wheelchair, ap3 17:09 Condition: good 17:09 Discharge instructions given to patient, extension associate, Instructed on discharge instructions, follow up and referral plans. medication usage, Demonstrated understanding of instructions, follow-up care, medications, Prescriptions given X 1, 17:10 Patient left the ED. ap3 Signatures: Dispatcher [employer] [facility] Pamela Ventura, RN RN aa5 Lenore Schrader RN RN ss Tristan Berger, PAWen PAEva Gotti cp RN RN ap3 Joseline Macdonald
[2024-12-16 20:19] VITALS: TEMP 97.6; O2SAT 100
[2024-12-16 20:22] VITALS: BP 184/79
== END 2024-12-16 17:10 | disposition home or self-care (01) ==
LOC: ER 14:34
DX: M25.512 Pain in left shoulder (principal); I10 Essential (primary) hypertension; W01.198A Fall on same level from slipping, tripping and stumbling with subsequent striking against other object, initial encounter
CPT/HCPCS: 99284